=== PATIENT | female | born 1975 ===

== ENCOUNTER 2020-08-12 09:19 | Outpatient (REF) | payer OTHER, SELFPAY | END 2020-08-12 09:20 | disposition home or self-care (01) | LOC: HO.LAB 09:19 | PROVIDERS: Visit Provider Internal Medicine | DX: Z20.828 Contact with and (suspected) exposure to other viral communicable diseases (principal) | CPT/HCPCS: C9803; U0003 ==

== ENCOUNTER 2020-08-28 11:50 | Outpatient (REF) | payer OTHER, SELFPAY | END 2020-08-28 11:51 | disposition home or self-care (01) | LOC: HO.LAB 11:50 | PROVIDERS: PCP Internal Medicine; Visit Provider Internal Medicine | DX: Z20.828 Contact with and (suspected) exposure to other viral communicable diseases (principal) | CPT/HCPCS: C9803; U0003 ==

== ENCOUNTER 2020-09-10 10:37 | Outpatient (REF) | payer OTHER, SELFPAY | END 2020-09-10 10:38 | disposition home or self-care (01) | LOC: HO.LAB 10:37 | PROVIDERS: Visit Provider Internal Medicine | DX: Z20.828 Contact with and (suspected) exposure to other viral communicable diseases (principal) | CPT/HCPCS: 36415; C9803; U0003 ==

== ENCOUNTER 2020-12-25 14:57 | Outpatient (REF) | payer OTHER, SELFPAY ==
[2020-12-25 15:10] LABS: COVID-19 Test Positive (Negative); IDNOW Serial# 55D5AD1C
== END 2020-12-25 14:58 | disposition home or self-care (01) ==
LOC: HO.LAB 14:57
PROVIDERS: Visit Provider Internal Medicine
DX: Z20.822 Contact with and (suspected) exposure to COVID-19 (principal)
CPT/HCPCS: 36415; 87635; C9803

== ENCOUNTER 2021-01-07 11:43 | Outpatient (REF) | payer OTHER, SELFPAY ==
[2021-01-07 12:18] LABS: COVID-19 Test Negative (Negative)
== END 2021-01-07 11:44 | disposition home or self-care (01) ==
LOC: HO.LAB 11:43
PROVIDERS: Visit Provider Internal Medicine
DX: Z20.822 Contact with and (suspected) exposure to COVID-19 (principal)
CPT/HCPCS: 36415; 87635; C9803

== ENCOUNTER 2021-01-17 15:12 | Outpatient (REF) | payer OTHER, SELFPAY | END 2021-01-17 15:13 | disposition home or self-care (01) | LOC: HO.LAB 15:12 | PROVIDERS: Visit Provider Internal Medicine | DX: Z20.822 Contact with and (suspected) exposure to COVID-19 (principal) | CPT/HCPCS: C9803; U0003; U0005 ==

== ENCOUNTER 2021-11-01 08:32 | Outpatient (REF) | payer OTHER, SELFPAY ==
[2021-11-01 11:08] LABS: MANUAL DIFF FLAG NO
[2021-11-01 11:12] LABS: Basophils Percent Auto 0.7 % (0-2); Eosinophils Absolute Auto 0.2 X10*3/uL (0.0-0.4); Hematocrit 43.9 % (37.0-47.0); Imm Gran Abs Auto 0.01 X10*3/uL (0.00-0.03); Imm Gran Pct Auto 0.2 % (0.0-0.4); Lymphocytes Absolute Auto 1.8 X10*3/uL (1.2-4.9); Lymphocytes Percent Auto 41.6 % (20-40); Mean Corpuscular HGB Conc 31.9 g/dl (31.0-35.0); Mean Corpuscular Hemoglobin 28.3 pg (27.0-33.0); Mean Corpuscular Volume 88.9 fL (80.0-98.0); Mean Platelet Volume 12.7 fL (9.4-12.3); Monocytes Absolute Auto 0.6 X10*3/uL (0.1-1.2); Neutrophils Absolute Auto 1.7 x10*3/uL (2.0-8.3); Neutrophils Percent Auto 40.5 % (45-73); Platelet Count 230 X10*3/uL (160-400); Red Blood Count 4.94 X10*6/uL (4.20-5.50); Red Cell Distribution Width 12.7 % (11.0-16.0); White Blood Count 4.2 X10*3/uL (4.8-10.8)
[2021-11-01 11:36] LABS: Alanine Aminotransferase 143 U/L (0-31); Alkaline Phosphatase 59 U/L (39-117); Anion Gap 13 (12-20); Aspartate Amino Transferase 96 U/L (5-31); Bilirubin Total 0.7 mg/dL (0.0-1.0); Blood Urea Nitrogen 13 mg/dL (9-16); Calcium 9.3 mg/dL (8.4-10.2); Carbon Dioxide 24 mmol/L (22-29); Chloride 106 mmol/L (96-108); Cholesterol 159 mg/dL; Estimated Glomerular Filt Rate > 60; Glucose Fasting 106 mg/dL (60-99); HDL Cholesterol 47 mg/dL; LDL Cholesterol Calculated 96 mg/dl; Potassium 4.8 mmol/L (3.3-5.1); Sodium 138 mmol/L (135-145); Total Protein 7.4 g/dL (6.5-8.0); Triglycerides 83 mg/dL
[2021-11-01 11:53] LABS: TSH reflex Free T4 1.15 uIU/mL (0.32-4.0)
[2021-11-03 03:57] LABS: Vitamin B12 963 pg/mL (200-900)
[2021-11-05 12:06] LABS: Vitamin D 25-OH, D2 <4 ng/mL; Vitamin D 25-OH, D3 10 ng/mL; Vitamin D 25-OH, Total 10 ng/mL (30-100)
== END 2021-11-01 08:33 | disposition home or self-care (01) ==
LOC: HO.HMGCLDS 08:32
PROVIDERS: PCP Internal Medicine; Visit Provider Internal Medicine
DX: Z00.01 Encounter for general adult medical examination with abnormal findings (principal); E66.09 Other obesity due to excess calories; F10.20 Alcohol dependence, uncomplicated; F43.9 Reaction to severe stress, unspecified; G89.29 Other chronic pain; M21.612 Bunion of left foot; M79.672 Pain in left foot
CPT/HCPCS: 36415; 80053; 80061; 82306; 82607; 84443; 85025

== ENCOUNTER 2021-12-29 15:01 | Outpatient (REF) | payer OTHER, SELFPAY ==
--- NOTE | ~2021-12-29 | MM_ITS ---
EXAMINATION: MM SCREENING DIGITAL BREAST TOMOSYNTHESIS, BILATERAL CLINICAL INFORMATION: Screening. Asymptomatic. The lifetime risk of breast cancer based on the Tyrer-Cuzick Model is 6%. COMPARISON: Mammography: 11/07/2019, 09/13/2018, 05/18/2016 TECHNIQUE: Digital breast tomosynthesis is performed in both the craniocaudal and mediolateral oblique views along with computer-aided detection (CAD). Synthesized 2D images are generated from the tomosynthesis. FINDINGS: There are scattered areas of fibroglandular density (ACR BI-RADS breast composition Category b). There are no significant masses, abnormal calcifications, or other abnormalities. Parenchymal pattern is similar to prior studies. There is no developing density or architectural abnormality. The axilla and skin contours are unremarkable. No significant changes. MM/MM tomosynthesis screening BI IMPRESSION: No mammographic evidence of malignancy. ASSESSMENT: BI-RADS 1: Negative RECOMMENDATION: Routine annual mammography screening. This patient's information was entered into a reminder system with a target due date for their next mammogram.
== END 2021-12-29 15:02 | disposition home or self-care (01) ==
LOC: HO.MAMMO 15:01
PROVIDERS: Visit Provider Internal Medicine
DX: Z12.31 Encounter for screening mammogram for malignant neoplasm of breast (principal)
CPT/HCPCS: 77063; 77067

== ENCOUNTER 2022-04-07 14:06 | Outpatient (REF) | payer OTHER, SELFPAY ==
--- NOTE | ~2022-04-07 | XR_ITS ---
EXAMINATION: XR SHOULDER, RIGHT CLINICAL INFORMATION: R29.898 - Other symptoms and signs involving the musculoskeletal system COMPARISON: None TECHNIQUE: Three views of the right shoulder. FINDINGS: The bones and soft tissues are normal. No fracture. Glenohumeral and acromioclavicular alignment is anatomic with normal joint space. No abnormal soft tissue calcifications. XR/XR shoulder RT min 2V IMPRESSION: Normal right shoulder.
--- NOTE | ~2022-04-07 | XR_ITS ---
EXAMINATION: XR CERVICAL SPINE CLINICAL INFORMATION: Other symptoms and signs involving the musculoskeletal system, R29.898. COMPARISON: None TECHNIQUE: 3 views of the cervical spine were obtained. FINDINGS: Degenerative changes are present in the cervical spine with disc space narrowing at C4-C5, C5-C6, and C6-C7. Some minimal endplate changes are present with osteophytes. No prevertebral soft tissue swelling or subluxations are seen. XR/XR cervical spine 3V IMPRESSION: Degenerative changes C4 through C7.
[2022-04-07 16:53] LABS: Alanine Aminotransferase 33 U/L (0-31); Albumin Level 4.5 g/dL (3.5-5.0); Alkaline Phosphatase 53 U/L (39-117); Aspartate Amino Transferase 28 U/L (5-31); Bilirubin Direct 0.2 mg/dL (0.0-0.5); Bilirubin Total 0.5 mg/dL (0.0-1.0); Estimated Average Glucose 120 mg/dL; Hemoglobin A1c % 5.8 %; Total Protein 7.8 g/dL (6.5-8.0)
== END 2022-04-07 14:07 | disposition home or self-care (01) ==
LOC: HO.HMGCX 14:06
PROVIDERS: PCP Internal Medicine; Visit Provider Internal Medicine
DX: F10.20 Alcohol dependence, uncomplicated (principal); R73.01 Impaired fasting glucose; R79.89 Other specified abnormal findings of blood chemistry; R29.898 Other symptoms and signs involving the musculoskeletal system
CPT/HCPCS: 36415; 72040; 73030; 80076; 83036

== ENCOUNTER 2022-05-20 13:20 | Outpatient (REF) | payer OTHER, SELFPAY ==
--- NOTE | ~2022-05-20 | MR_ITS ---
EXAMINATION: MR BRAIN WITHOUT AND WITH CONTRAST CLINICAL INFORMATION: 46-year-old with right arm weakness. COMPARISON: None TECHNIQUE: Multiplanar, multisequence MRI of the brain was obtained before and after the intravenous administration of 8.5 mL Gadavist. FINDINGS: Brain Volume: Within normal limits within the limitations of qualitative assessment. Structural: No malformations. Brain and Meninges: DWI sequence demonstrates no restricted diffusion to suggest acute or subacute cerebral ischemia. The brain is normal in morphology. A few nonspecific punctate nonenhancing T2 hyperintensities are seen in the left subcortical parietal white matter and within the anterior aspect of the left external capsule. Nonspecific nonenhancing punctate T2 hyperintensity in the anterior right external capsule as well. Remainder of the brain is normal in signal intensity. Gradient refocused imaging demonstrates no evidence for abnormal magnetic susceptibility artifact to suggest hemorrhage, hemosiderin staining or abnormal mineralization. No extra-axial fluid collections, intracranial mass lesion, extra-axial fluid collection, pathologic intracranial enhancement, space-occupying process or mass effect. Skaggs-white matter differentiation is well maintained. Ventricles and Subarachnoid Spaces: The ventricular system and subarachnoid spaces are within normal limits without hydrocephalus. Orbital Structures: The visualized orbital structures are grossly unremarkable within the limitations of the study. Vascular: Signal voids are noted in the visualized major intracranial vessels. Osseous Structures, Sinuses/Mastoids, Extracranial Soft Tissues: Unremarkable MR/MR head/brain wo/w con IMPRESSION: 1. A few tiny nonenhancing white matter T2 hyperintensities seen in the left cerebral hemispheric white matter and both external capsules as described above which are nonspecific findings. 2. No intracranial mass lesion, abnormal enhancement, space-occupying process or mass effect.
== END 2022-05-20 13:21 | disposition home or self-care (01) ==
LOC: HO.MRI 13:20
PROVIDERS: Visit Provider Psychiatry & Neurology Neurology
DX: R29.898 Other symptoms and signs involving the musculoskeletal system (principal)
CPT/HCPCS: 70553; A9585

== ENCOUNTER 2022-07-20 14:25 | Outpatient (REF) | payer OTHER, SELFPAY ==
[2022-07-21 01:59] LABS: CT PCR NOT DETECTED (Not Detect.); NG PCR NOT DETECTED (Not Detect.)
[2022-07-21 12:08] LABS: BV Int Neg Control Negative (Negative); BV Int Pos Control Positive (Positive)
[2022-07-23 14:11] LABS: HPV mRNA E6/E7 rflx Not Detected (Not Detected)
== END 2022-07-20 14:26 | disposition home or self-care (01) ==
LOC: HO.LNP 14:25
PROVIDERS: Visit Provider Advanced Practice Midwife
DX: Z01.419 Encounter for gynecological examination (general) (routine) without abnormal findings (principal); Z11.51 Encounter for screening for human papillomavirus (HPV)
CPT/HCPCS: 87480; 87491; 87510; 87591; 87624; 87660; 88142

== ENCOUNTER 2022-09-14 12:50 | Outpatient (REF) | payer OTHER, SELFPAY ==
[2022-09-14 14:57] LABS: Syphilis Screen Nonreactive (Nonreactive)
[2022-09-16 08:26] LABS: HBsAGNum1 0.36 S/CO (0.00-0.99); HIV AB/AG Nonreactive (Nonreactive); HIV Num 1 0.08 S/CO (0.00-0.99); Hepatitis B Surface Antigen Negative (Negative); ~HepC Num1 13.91 S/CO (0.00-0.79); ~Hepatitis C Antibody Reactive (Nonreactive)
== END 2022-09-14 12:51 | disposition home or self-care (01) ==
LOC: HO.LAB 12:50
PROVIDERS: PCP Internal Medicine; Visit Provider Advanced Practice Midwife
DX: Z11.3 Encounter for screening for infections with a predominantly sexual mode of transmission (principal); Z11.4 Encounter for screening for human immunodeficiency virus [HIV]
CPT/HCPCS: 36415; 86780; 86803; 87340; 87389

== ENCOUNTER 2022-10-23 10:52 | Outpatient (REF) | payer OTHER, SELFPAY ==
[2022-10-23 14:15] LABS: MANUAL DIFF FLAG NO
[2022-10-23 14:21] LABS: Basophils Absolute Auto 0.1 X10*3/uL (0.0-0.2); Basophils Percent Auto 0.8 % (0-2); Eosinophils Absolute Auto 0.3 X10*3/uL (0.0-0.4); Eosinophils Percent Auto 3.4 % (0-4); Hematocrit 42.1 % (37.0-47.0); Hemoglobin 13.5 g/dl (12.0-16.0); Imm Gran Abs Auto 0.02 X10*3/uL (0.00-0.03); Imm Gran Pct Auto 0.2 % (0.0-0.4); Lymphocytes Absolute Auto 2.6 X10*3/uL (1.2-4.9); Lymphocytes Percent Auto 31.2 % (20-40); Mean Corpuscular HGB Conc 32.1 g/dl (31.0-35.0); Mean Corpuscular Hemoglobin 28.6 pg (27.0-33.0); Mean Corpuscular Volume 89.2 fL (80.0-98.0); Mean Platelet Volume 12.2 fL (9.4-12.3); Monocytes Absolute Auto 0.6 X10*3/uL (0.1-1.2); Monocytes Percent Auto 6.7 % (2-11); Neutrophils Absolute Auto 4.8 x10*3/uL (2.0-8.3); Neutrophils Percent Auto 57.7 % (45-73); Platelet Count 306 X10*3/uL (160-400); Red Blood Count 4.72 X10*6/uL (4.20-5.50); White Blood Count 8.2 X10*3/uL (4.8-10.8)
[2022-10-23 14:32] LABS: Estimated Average Glucose 120 mg/dL; Hemoglobin A1c % 5.8 %
[2022-10-23 14:50] LABS: Alanine Aminotransferase 22 U/L (0-31); Albumin Level 4.2 g/dL (3.5-5.0); Alkaline Phosphatase 60 U/L (39-117); Anion Gap 13 (12-20); Aspartate Amino Transferase 19 U/L (5-31); Bilirubin Total 0.4 mg/dL (0.0-1.0); Blood Urea Nitrogen 16 mg/dL (9-16); Calcium 9.4 mg/dL (8.4-10.2); Carbon Dioxide 24 mmol/L (22-29); Chloride 108 mmol/L (96-108); Cholesterol 194 mg/dL; Estimated Glomerular Filt Rate > 60; Glucose Fasting 104 mg/dL (60-99); HDL Cholesterol 53 mg/dL; LDL Cholesterol Calculated 122 mg/dl; Potassium 4.9 mmol/L (3.3-5.1); Sodium 140 mmol/L (135-145); Total Protein 7.4 g/dL (6.5-8.0); Triglycerides 99 mg/dL
[2022-10-25 07:59] LABS: HCV Log PCR <1.18 NOT DETECTED Log IU/mL (NOT DETECTED); HepC Viral Load <15 NOT DETECTED IU/mL (NOT DETECTED)
== END 2022-10-23 10:53 | disposition home or self-care (01) ==
LOC: HO.HMGCLDS 10:52
PROVIDERS: PCP Internal Medicine; Visit Provider Internal Medicine
DX: Z00.01 Encounter for general adult medical examination with abnormal findings (principal); B19.20 Unspecified viral hepatitis C without hepatic coma; E66.09 Other obesity due to excess calories; R73.01 Impaired fasting glucose; R79.89 Other specified abnormal findings of blood chemistry
CPT/HCPCS: 36415; 80053; 80061; 83036; 84443; 85025; 87522

== ENCOUNTER 2022-11-27 09:12 | Outpatient (REF) | payer OTHER, SELFPAY ==
--- NOTE | ~2022-11-27 | XR_ITS ---
EXAMINATION: XR SHOULDER, RIGHT CLINICAL INFORMATION: Pain in right shoulder. COMPARISON: None available. TECHNIQUE: AP external rotation, Grashey, scapular Y, and axillary views of the right shoulder. FINDINGS: There is loss of glenohumeral and AC joint space. No visible acute fracture, dislocation or subluxation seen. No bony erosive changes. The soft tissues are normal. XR/XR shoulder RT min 2V IMPRESSION: Mild degenerative changes right shoulder joint. No visible acute fracture or dislocation seen.
== END 2022-11-27 09:13 | disposition home or self-care (01) ==
LOC: HO.HMGCX 09:12
PROVIDERS: PCP Internal Medicine; Visit Provider Internal Medicine
DX: M25.511 Pain in right shoulder (principal)
CPT/HCPCS: 73030

== ENCOUNTER → 2022-12-29 10:47 | Outpatient (BNVA) | payer OTHER, SELFPAY | PROVIDERS: PCP Internal Medicine; Visit Provider Physician Assistant | DX: R29.898 Other symptoms and signs involving the musculoskeletal system (principal) | CPT/HCPCS: 99202 ==

== ENCOUNTER 2023-02-09 09:23 | Outpatient (REF) | payer OTHER, SELFPAY ==
--- NOTE | ~2023-02-09 | MM_ITS ---
EXAMINATION: MM SCREENING DIGITAL BREAST TOMOSYNTHESIS, BILATERAL CLINICAL INFORMATION: Screening. Asymptomatic. The lifetime risk of breast cancer based on the Tyrer-Cuzick Model is 8%. COMPARISON: Mammography: 12/29/2021, 11/07/2019, 09/13/2018 TECHNIQUE: Digital breast tomosynthesis is performed in both the craniocaudal and mediolateral oblique views along with computer-aided detection (CAD). Synthesized 2D images are generated from the tomosynthesis. FINDINGS: There are scattered areas of fibroglandular density (ACR BI-RADS breast composition Category b). There are no significant masses, abnormal calcifications, or other abnormalities. Parenchymal pattern is similar to prior studies. There is no developing density or architectural abnormality. There are incidental tightly grouped dermal calcifications again noted posterior 7:00 left breast. The axilla and skin contours are unremarkable. No significant changes. MM/MM tomosynthesis screening BI IMPRESSION: No mammographic evidence of malignancy. ASSESSMENT: BI-RADS 2: Benign RECOMMENDATION: Routine annual mammography screening. This patient's information was entered into a reminder system with a target due date for their next mammogram.
== END 2023-02-09 09:24 | disposition home or self-care (01) ==
LOC: HO.MAMMO 09:23
PROVIDERS: Visit Provider Internal Medicine
DX: Z12.31 Encounter for screening mammogram for malignant neoplasm of breast (principal)
CPT/HCPCS: 77063; 77067

== ENCOUNTER 2023-03-10 19:04 | Emergency (ER) | payer OTHER, SELFPAY ==
[2023-03-10 19:15] VITALS: BP 119/65; PULSE 77; RESP 18; TEMP 36.8; O2SAT 100; BMI 29.8
--- NOTE | 2023-03-10 19:17 | ED_ITS ---
HPI - General Adult General Chief complaint: Extremity Injury, Lower Stated complaint: left ankle inj Time Seen by Provider: 03/10/23 20:23 Source: patient, RN notes reviewed and old records reviewed Mode of arrival: ambulatory Limitations: no limitations History of Present Illness HPI narrative: 47-year-old female presents for evaluation of left ankle pain and swelling. Patient reports that she slipped and fell off of a step stool She will in awkwardly on her left ankle She describes an inversion injury She has moderate pain to the outside of the left ankle Denies any other complaints or concerns Related Data Home Medications Medication Instructions Recorded Confirmed No Known Home Meds 12/23/22 01/21/23 Allergies Allergy/AdvReac Type Severity Reaction Status Date / Time No Known Allergies Allergy Verified 01/21/23 09:51 Review of Systems Musculoskeletal: Musculoskeletal: Reports arthralgias, Reports joint swelling and Reports limited range of motion PMFSH Past Medical History Surgical History History of bunionectomy Family History Family History Mother Ovarian cancer Other Mental health disorder Social History Social History Housing: Apartment Patient Tobacco Use Status: Current someday Tobacco user Tobacco use type: Cigarette Cigarettes Per Day: 2 Years Smoked: 6 years e-Cigarette/Vaping Use: Never Used service: No Current occupational status: employed Current occupation: right handed Cognitive needs: No Hearing needs: No Vision needs: Yes Physical Exam ED Vital Signs: Vital Signs - 24 hr 03/10/23 19:15 Temperature 98.3 F Pulse Rate 77 Respiratory Rate 18 Blood Pressure 119/65 Pulse Oximetry 100 Oxygen Delivery Method Room Air BMI result Body Mass Index 29.8 Const General: healthy appearing, comfortable, no acute distress, alert and awake Nutritional Appearance: well nourished Orientation/consciousness: patient oriented x3 HENMT Head: Yes normocephalic and Yes atraumatic Eyes Eyelids: Yes eyelids normal Conjunctivae: conjunctivae normal Sclerae: sclerae normal Corneas: corneas normal Pupils: Equal, round and reactive pupils present EOM: EOMs intact bilaterally Neck Neck: Yes full ROM Resp Effort & Inspection: normal respiratory effort, able to speak in complete sentences and not labored Neuro General: patient oriented x3 Cranial nerves: Yes Equal, round and reactive pupils present and Yes Bilaterally intact EOM present Cognition (Neuro): normal cognition Extrem Other: Patient has marked left lateral ankle edema over the lateral malleolus and anterior talofibular ligament Course Course Course Narrative: RME- 47-year-old female presents for evaluation of left ankle pain. She reports that she was standing on a stool and fell off 1 step twisting her left ankle. She has a small scrape to her right manley as well but no joint pain to the right ankle or knee. X-ray of the left ankle ordered Medical Decision Making Medical Decision Making MDM Narrative: Patient describes an inversion injury resulting in left ankle pain. X-ray negative for fracture. She will be treated for ankle sprain with crutches and Aircast. Differential Diagnosis Ankle sprain Contusion Fracture Dislocation Independent Interpretation I performed an independent interpretation of an: Plain X-Ray (No obvious fracture of the left ankle) Radiology Impression Discussion of test interpretation with radiology: I have reviewed the ra diologist's reading. (No acute ankle fracture. Soft tissue swelling over the left lateral ankle) Discharge Plan Discharge Clinical Impression: Left ankle sprain Patient Disposition: Home, Self-Care Instructions: Ankle Sprain (ED) Additional Instructions: Your x-ray was negative for fracture. You did have a small joint effusion This is likely from the ankle sprain. Ice the area every 4 hours for 15 minutes Elevate her leg above her heart while resting Use ibuprofen as needed for pain Prescriptions: No Action No Known Home Meds Stand Alone Forms: Work/School Release
== END 2023-03-10 21:10 | disposition home or self-care (01) ==
PROVIDERS: Emergency Provider Emergency Medicine Emergency Medical Services; PCP Internal Medicine
DX: S93.402A Sprain of unspecified ligament of left ankle, initial encounter (principal); W17.89XA Other fall from one level to another, initial encounter; R60.0 Localized edema; F17.210 Nicotine dependence, cigarettes, uncomplicated; Y93.9 Activity, unspecified; Y92.9 Unspecified place or not applicable; Y99.9 Unspecified external cause status
CPT/HCPCS: 73610; 99282; 99283

== ENCOUNTER 2023-03-24 10:10 | Outpatient (AMB) | payer OTHER, SELFPAY ==
[2023-03-24 10:14] VITALS: BP 108/68; PULSE 93; O2SAT 98; BMI 29.6
--- NOTE | 2023-03-24 10:14 | MHC.PC.OV ---
Vital Signs 03/24/23 10:14 Height 5 ft 7 in Weight 189 lb 4 oz BMI 29.6 BP 108/68 Blood Pressure Location Rt brachial Position Sitting Pulse 93 Pulse Source Pulse Oximeter Pulse Oximetry (%) 98 Oxygen Delivery Method Room Air Intake Visit Reasons: LE swelling due to injuries Allergies No Known Allergies Allergy (Verified 03/24/23 10:16) Medication List - Last Reconciled 03/24/23 by Andrew Mcguire MD No Known Home Meds Tobacco use date assessed: 03/24/23 Dental Screening Dental Screen Date: 03/24/23 Did you have a dental visit in the last 12 months?: No Did you have a dental problem in the last 6 months where you did not have access to dental care?: No Was dental information given to patient?: No HPI LE swelling due to injuries HPI Details Patient is 47-year-old female who has encountered injury to her left ankle few days ago and she was evaluated for that in emergency room she is currently wearing a brace and has appointment with [facility] next week Last week she was climbing the chair to put her a condition in and she fell again this time injuring her right ankle and right lower leg Patient is also have chronically 1+ edema over ankles she is under care over vascular specialist for that and has appointment coming up next month She continued to have weakness in her right arm I have given her number for Dr. Castaneda neurology so she can call and book appointment for evaluation She has already seen orthopedic for this problem and they have the impression that it is neurological problem. I have sent Lasix 20 mg for the edema while she wait to see the vascular specialist X-ray of her right ankle and lower leg ordered She is also requesting a note for work to reduce the number of hours to 5 Letter provided currently patient is working 8 hours a day She will have to return for the cleared is to go back to regular hours once she is better. [facility] Surgical History History of bunionectomy Family History Mother Ovarian cancer Other Mental health disorder Social History Housing: Apartment Patient Tobacco Use Status: Current someday Tobacco user Tobacco use type: Cigarette Cigarettes Per Day: 2 Years Smoked: 6 years e-Cigarette/Vaping Use: Never Used service: No Current occupational status: employed Current occupation: right handed Cognitive needs: No Hearing needs: No Vision needs: Yes Female Reproductive History Menstrual Age of Menarche: 14 Questionnaire Thrive Questionnaire Date Thrive assessed: 10/21/22 AUDIT C Alcohol Use Questionnaire (AUDIT-C) 1. How often do you have a drink containing alcohol?: 2-3 times a week 2. How many drinks containing alcohol do you have on a typical day when you are drinking?: 1 or 2 3. How often do you have six or more drinks on one occasion?: Never Total Score: 3 Score Reviewed/Action Taken: Yes STACI-7 AMB Questionnaire STACI-7 Date STACI - 7 assessed: 10/21/22 Source: Developed by Drs. Bakari Bhakta, Alley Adair, Issac Peoples and colleagues, with an educational lewis from [employer]. Review of Systems Const Denies chills and Denies fever(s) ENT Denies epistaxis and Denies nasal discharge Card Denies chest pain Resp Denies chest congestion, Denies cough and Denies hemoptysis GI Denies diarrhea and Denies nausea Skin/Breast Denies rash Neuro Reports no additional complaints Psych Reports no additional complaints Endo Reports no additional complaints Physical exam (Primary Care) Vital Signs: Last Vital Signs Pulse 93 03/24/23 10:14 BP 108/68 03/24/23 10:14 Pulse Ox 98 03/24/23 10:14 Oxygen Delivery Method Room Air 03/24/23 10:14 BMI result Body Mass Index 29.6 Tobacco/Smoking Status: Tobacco use Status Tobacco use date assessed 03/24/23 03/24/23 10:17 Patient Tobacco Use Status Current someday Tobacco 03/24/23 10:17 Tobacco use type Cigarette 03/24/23 10:17 e-Cigarette/Vaping Use Never Used 03/24/23 10:17 Thrive Assessment: Date of Thrive Assessment Date Thrive assessed 10/21/22 03/24/23 10:17 Const General: cooperative, comfortable and no acute distress Orientation/consciousness: patient oriented x3 HENMT Head: Yes normocephalic Eyes General: appearance normal, both eyes and all related structures Neck Neck: Yes supple Resp Effort & Inspection: normal respiratory effort, no cough and no stridor Cardio Rhythm: regular rhythm Heart sounds: S1 normal heart sound present and S2 normal heart sound present Skin General skin exam: turgor normal Neuro General: patient oriented x3, tone normal and moves all extremities Extrem Other: 1+ pitting edema both ankle, right ankle tender medially with pressure with limited range of motion, right lower leg tender to pressure without any skin changes. Left ankle in brace. Right lower extremity: no edema Left lower extremity: no edema Assessment and Plan Assessment & Plan (1) Fall: Code(s): W19.XXXA - Unspecified fall, initial encounter (2) Leg injury: Code(s): S89.90XA - Unspecified injury of unspecified lower leg, initial encounter (3) Ankle sprain: Code(s): S93.409A - Sprain of unspecified ligament of unspecified ankle, initial encounter (4) Swelling of right lower extremity: Code(s): M79.89 - Other specified soft tissue disorders (5) Right arm weakness: Code(s): R29.898 - Other symptoms and signs involving the musculoskeletal system Plan Patient is 47-year-old female who has encountered injury to her left ankle few days ago and she was evaluated for that in emergency room she is currently wearing a brace and has appointment with [facility] next week Last week she was climbing the chair to put her a condition in and she fell again this time injuring her right ankle and right lower leg Patient is also have chronically 1+ edema over ankles she is under care over vascular specialist for that and has appointment coming up next month She continued to have weakness in her right arm I have given her number for Dr. Castaneda neurology so she can call and book appointment for evaluation She has already seen orthopedic for this problem and they have the impression that it is neurological problem. I have sent Lasix 20 mg for the edema while she wait to see the vascular specialist X-ray of her right ankle and lower leg ordered She is also requesting a note for work to reduce the number of hours to 5 Letter provided currently patient is working 8 hours a day She will have to return for the cleared is to go back to regular hours once she is better. Orders: Orders XR tibia fibula RT 2V Today S89.90XA - Unspecified injury of unspecified lower leg, initial encounter XR ankle RT 2V Today S89.90XA - Unspecified injury of unspecified lower leg, initial encounter, S93.409A - Sprain of unspecified ligament of unspecified ankle, initial encounter Medications: New furosemide (Lasix) 20 mg PO DAILY 30 tabs 0RF Coding Level of Care Code Est Pt Level 4 (63958) Diagnoses Fall W19.XXXA Leg injury S89.90XA Ankle sprain S93.409A Swelling of right lower extremity M79.89 Right arm weakness R29.898
== END 2023-03-24 12:47 | disposition home or self-care (01) ==
PROVIDERS: PCP Internal Medicine; Visit Provider Internal Medicine
DX: S89.91XA Unspecified injury of right lower leg, initial encounter (principal); S93.401A Sprain of unspecified ligament of right ankle, initial encounter; W19.XXXA Unspecified fall, initial encounter; M79.89 Other specified soft tissue disorders; R29.898 Other symptoms and signs involving the musculoskeletal system
CPT/HCPCS: 99214

== ENCOUNTER 2023-03-24 10:33 | Outpatient (REF) | payer OTHER, SELFPAY ==
--- NOTE | ~2023-03-24 | XR_ITS ---
EXAMINATION: RIGHT TIB-FIB, RIGHT ANKLE CLINICAL INFORMATION: Injury COMPARISON: None TECHNIQUE: 2 views tib-fib, 3 views right ankle FINDINGS: The tibia and fibula appear normal. There is marked soft tissue swelling at the ankle most marked medially. The ankle mortise appears stable. No ankle effusion is seen. No fractures or dislocations. Incidental note made of a small plantar calcaneal spur. XR/XR ankle RT 2V IMPRESSION: Soft tissue swelling but no evidence of an acute osseous injury.
--- NOTE | ~2023-03-24 | XR_ITS ---
EXAMINATION: RIGHT TIB-FIB, RIGHT ANKLE CLINICAL INFORMATION: Injury COMPARISON: None TECHNIQUE: 2 views tib-fib, 3 views right ankle FINDINGS: The tibia and fibula appear normal. There is marked soft tissue swelling at the ankle most marked medially. The ankle mortise appears stable. No ankle effusion is seen. No fractures or dislocations. Incidental note made of a small plantar calcaneal spur. XR/XR tibia fibula RT 2V IMPRESSION: Soft tissue swelling but no evidence of an acute osseous injury.
== END 2023-03-24 10:34 | disposition home or self-care (01) ==
LOC: HO.HMGCX 10:33
PROVIDERS: PCP Internal Medicine; Visit Provider Internal Medicine
DX: S89.91XA Unspecified injury of right lower leg, initial encounter (principal); S93.401A Sprain of unspecified ligament of right ankle, initial encounter; X58.XXXA Exposure to other specified factors, initial encounter; Y93.9 Activity, unspecified; Y92.9 Unspecified place or not applicable; Y99.9 Unspecified external cause status
CPT/HCPCS: 73590; 73600

== ENCOUNTER 2023-03-29 14:36 | Outpatient (AMB) | payer OTHER, SELFPAY ==
[2023-03-29 15:04] VITALS: PULSE 76; O2SAT 99; BMI 29.6
--- NOTE | 2023-03-29 15:04 | A.OFFVIS_ITS ---
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 Pt states she has weakness in right arm. It's been like this for awhile and she has trouble doing her hair and other tasks. [employer] Set Up Mechanic Required: No Allergies No Known Allergies Allergy (Verified 03/29/23 15:09) Medication List - Last Reconciled 03/29/23 by JOSE Brady furosemide (Lasix) 20 mg PO DAILY multivitamin (One-A-Day Essential tablet) 1 tab PO DAILY HPI HPI Comments History of Present Illness Details Right-handed 47-yr-old female presents for neurological evaluation of RUE weakness. Pt reports about a year ago she developed RUE weakness. She denies any preceding injuries, infections. The weakness is slowly progressing. She needs to cee left arm to puch up her right arm. She reports her arm feels heavy. She has tremor upon raising her right arm and her right hand postures. She has some shoulder p ain- x-ray was NL. Patient endorses: in the apst talked in her sleep, gait difficulties- had bunion surgery in Sep 2022, has been having RLE swelling- will see vascular, recent fall- twisted both of her ankles. And patient denies: dysphagia, numbness, tingling, cramps, hyposmia, neck pain, orthostatic lightheadedness, headaches, skin color changes. Any history of concussion or head injury? None Any history of significant musculoskeletal disorders? None Any history of cardiovascular disorders? No HTN Any history of mood disorders? Anxiety- situational Any history of coagulopathy disorders? None Any history of metabolic disorders? pre-diabtic Any history of neurological disorders? About 5 yrs ago had ? left lower facial spasm- resolved w/ a course of steroids. Exposures- Denies any h/o neuroleptic exposure. Any family history of a similar disorder? None Per chart review- RUE EMG/NCS- NL RPR, TSH, HgA1C, B-12- NL Vit D- low 11/27/22, XR/XR shoulder RT min 2V IMPRESSION: Mild degenerative changes right shoulder joint. No visible acute fracture or dislocation seen. 05/20/22, MR/MR head/brain wo/w con IMPRESSION: 1. A few tiny nonenhancing white matter T2 hyperintensities seen in the left cerebral hemispheric white matter and both external capsules as described above which are nonspecific findings. 2. No intracranial mass lesion, abnormal enhancement, space-occupying process or mass effect.? 04/07/22, XR/XR cervical spine 3V IMPRESSION: Degenerative changes C4 through C7. [facility] Surgical History History of bunionectomy Family History (Updated 03/29/23 @ 15:10 by Betty Couch CMA) Mother Ovarian cancer Sister Acute kidney failure Other Mental health disorder Social History (Updated 03/29/23 @ 15:11 by Betty Couch CMA) Housing: Apartment Alcohol intake: current Alcohol intake frequency: a few times a month Patient Tobacco Use Status: Current someday Tobacco user Tobacco use type: Cigarette Cigarettes Per Day: 2 Years Smoked: 6 years e-Cigarette/Vaping Use: Never Used Substance Use Type: Marijuana service: No Current occupational status: employed Current occupation: right handed Cognitive needs: No Hearing needs: No Vision needs: Yes Female Reproductive History Menstrual Age of Menarche: 14 Review of Systems Const Details: See scanned ROS form Physical Exam Vital Signs: Last Vital Signs Pulse 76 03/29/23 15:04 Pulse Ox 99 03/29/23 15:04 Oxygen Delivery Method Room Air 03/29/23 15:04 BMI result Body Mass Index 29.6 Const General: cooperative and no acute distress Orientation/consciousness: patient oriented x3 HEENT Head: Yes normocephalic Resp Effort & Inspection: normal respiratory effort and able to speak in complete sentences Back/Spine/Pelvis Other: Bilateral posterior cervical tightness. Cervical ROM: limited Left Spurling: normal Right Spurling: normal. Denies right shoulder pain Neuro Other: CN II-XI intact MS- 5/5 in LUE, BLE MS RUE- Pt unable to elevate right shoulder against gravity. Able to lift RUE- slowly. Hand grasp ok. RUE rests with hand postured in slight flexion Mild chin tremor on cheek puff test RUE wingbeat tremor RUE tone. Decreased right sided FFM, RUE HANNA, and foot taps Stand easily, no right arm swing w/ hand postured, decreased heel toe step on right. RLE swelling. General: patient oriented x3 and deep tendon reflexes 2+ bilaterally Gait exam (Neuro): Normal gait present Psych Appearance: grossly normal Mental Status: mental status grossly normal Speech and movement: Normal speech and movement present Affect: normal affect Attitude: cooperative Thought process: Normal thought process present Thought content: Normal thought content present Insight: Good insight present (Psych) Assessment & Plan Assessment & Plan (1) Tremor: Code(s): R25.1 - Tremor, unspecified (2) Right arm weakness: Code(s): R29.898 - Other symptoms and signs involving the musculoskeletal system (3) Rigidity: Code(s): R29.898 - Other symptoms and signs involving the musculoskeletal system Plan Pt has s/s c/w movement disorder however discussed w/ pt that further tesing would be required before we can determine exact etiology/dx- Will trial pt on CD-LD and monitor her response. Pt also advised to undergo DaTscan to assess for any central dopaminergic process. Pt seen in c/w DR Castaneda. f/u in 2 months or sooner prn. Orders: Orders DaTscan Today R25.1 - Tremor, unspecified, R29.898 - Other symptoms and signs involving the musculoskeletal system Medications: New carbidopa-levodopa 25-100 mg 0.5 tab bid x's 1 week, then 1 tab bid orally 2 times a day; take w/ a cracker 30 minutes before breakfast and dinner, 30 days 60 tabs 3RF Coding Level of Care Code New Pt Level 4 (51716) Diagnoses Tremor R25.1 Right arm weakness R29.898 Rigidity R29.898
== END 2023-03-29 16:12 | disposition home or self-care (01) ==
PROVIDERS: Visit Provider Nurse Practitioner Family
DX: R25.1 Tremor, unspecified (principal); R29.898 Other symptoms and signs involving the musculoskeletal system
CPT/HCPCS: 99204

== ENCOUNTER → 2023-03-29 14:36 | Outpatient (BNVA) | payer OTHER, SELFPAY | PROVIDERS: Visit Provider Nurse Practitioner Family | DX: R25.1 Tremor, unspecified (principal); R29.898 Other symptoms and signs involving the musculoskeletal system | CPT/HCPCS: 99202 ==

== ENCOUNTER 2023-04-01 13:04 | Outpatient (AMB) | payer OTHER, SELFPAY ==
--- NOTE | 2023-04-01 13:06 | MHC.OFFVIS ---
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 Patient is not diabetic, Patient is a smoker, no hx blood clots. 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 Complaints include pain over varicosities, swelling of lower extremities, cramping, fatigue, and heaviness of the lower extremities. 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 It is noted more so in right leg. Patient denies any previous venous surgery or injections. Patient denies any history of DVT/ PE. Patient denies any history of phlebitis. Trial of compression includes - [id number] They now present for vascular evaluation regarding their varicose veins. [facility] Surgical History History of bunionectomy Family History Mother Ovarian cancer Sister Acute kidney failure Other Mental health disorder Social History Housing: Apartment Alcohol intake: current Alcohol intake frequency: a few times a month Patient Tobacco Use Status: Current someday Tobacco user Tobacco use type: Cigarette Cigarettes Per Day: 2 Years Smoked: 6 years e-Cigarette/Vaping Use: Never Used Substance Use Type: Marijuana service: No Current occupational status: employed Current occupation: right handed Cognitive needs: No Hearing needs: No Vision needs: Yes Female Reproductive History Menstrual Age of Menarche: 14 Review of Systems Const Reports as per HPI ENT Reports no additional complaints Card Denies chest pain, Denies chest pain at rest and Denies chest pain with activity Resp Denies chest congestion and Denies cough GI Reports no additional complaints Musc Details: pain over varicosities, aching of lower extremities, swelling, cramping, heaviness and tiredness, itching Denies abnormal gait Skin/Breast Reports pruritus and Denies wounds Neuro Reports no additional complaints and Denies abnormal gait Psych Denies no additional complaints Physical Exam Const General: cooperative, healthy appearing and comfortable Orientation/consciousness: oriented to person, oriented to place and oriented to time Neck Carotids: no bruits Chest Chest palpation & inspection: normal inspection of the chest and normal palpation of entire chest wall Resp Effort & Inspection: normal respiratory effort and able to speak in complete sentences Cardio Rate: regular rate Heart sounds: S1 normal heart sound present and S2 normal heart sound present Peripheral pulses: Peripheral pulses 2+ throughout GI Inspection: Yes normal to inspection Skin Other: +2 edema, right CEAP Classification C4 - skin color changes Ep - Etiology Primary As - superficial veins P - reflux General skin exam: dry skin Neuro General: oriented to person, oriented to place and oriented to time Extrem Right lower extremity: full ROM, normal capillary refill and edema Left lower extremity: full ROM, normal capillary refill and edema Psych Mental Status: mental status grossly normal Assessment & Plan Assessment & Plan (1) Varicose veins of right lower extremity with inflammation: Code(s): I83.11 - Varicose veins of right lower extremity with inflammation Plan: In short, the patient has evidence of venous insufficiency. I have discussed the pathophysiology with the patient. In addition I have provided informational material regarding venous disease to the patient. We have discussed conservative measures including compression, elevation, and exercise. I have also provided a handout regarding appropriate use of compression stockings and where to purchase good compression stockings as well. I have taken the liberty of ordering venous insufficiency testing with the patient. They will follow up with me after testing. The patient had an opportunity to ask questions regarding the treatment plan. All questions were answered. Imaging studies, laboratory studies and physical exam results were discussed and reviewed in detail. No major barriers to understanding were identified. The patient expressed understanding and agreement with the above treatment plan. The patient is aware they should contact our office by phone for worsening of the current condition or the appearance of new symptoms. Thank you for allowing me to participate in the vascular care of this patient. If you have any questions or concerns regarding the treatment for the above condition please do not hesitate to contact me. The office telephone contact is [phone]. This note is constructed using voice recognition software. While every effort has been made to ensure accuracy, scale technician errors may have been included. Thank you for allowing me to participate in the care of your patient. Yours sincerely, Atul Gomes MD, FACS, R.P.V.I. Orders: Orders US venous duplex LE BI 1 Week I83.11 - Varicose veins of right lower extremity with inflammation Coding Level of Care Code New Pt Level 4 (14753) Diagnoses Varicose veins of right lower extremity with inflammation I83.11
== END 2023-04-01 13:44 | disposition home or self-care (01) ==
PROVIDERS: Visit Provider Surgery Vascular Surgery
DX: I83.11 Varicose veins of right lower extremity with inflammation (principal)
CPT/HCPCS: 99203

== ENCOUNTER → 2023-04-01 13:04 | Outpatient (BNVA) | payer OTHER, SELFPAY | PROVIDERS: Visit Provider Surgery Vascular Surgery ==

== ENCOUNTER 2023-05-04 08:27 | Outpatient (REF) | payer OTHER, SELFPAY ==
--- NOTE | ~2023-05-04 | US_ITS ---
EXAMINATION: US LOWER EXTREMITY VENOUS (REFLUX EXAM), BILATERAL CLINICAL INDICATION: Bilateral venous insufficiency testing COMPARISON: None. TECHNIQUE: Color flow triplex imaging and compression Doppler was performed to evaluate both the deep and the superficial systems bilaterally. To evaluate the superficial system, the examination was performed in the upright position. Color-flow Doppler ultrasound and compression ultrasound were utilized. In addition, maneuvers were utilized to demonstrate reflux. FINDINGS: 1. DEEP VENOUS ULTRASOUND OF THE RIGHT LOWER EXTREMITY: Common Femoral Vein: Compressible, normal respiratory variation and augmented flow. Femoral Vein: Compressible, normal color flow and augmentation. Popliteal Vein: Compressible, normal augmentation. Deep Reflux: There is no evidence of reflux in the deep system in either the common femoral vein or the popliteal vein. There is no evidence of a James's cyst. 2. SUPERFICIAL ULTRASOUND WITH DOPPLER OF RIGHT LOWER EXTREMITY: GREAT SAPHENOUS VEIN: Saphenofemoral Junction: 0.7 cm; Reflux: 0 ms Proximal Thigh: 0.4 cm; Reflux: 0 ms Mid Thigh: 0.3 cm; Reflux: 0.2 ms Above Knee: 0.2 cm; Reflux: 0 ms At Knee: 0.3 cm; Reflux: 0 ms Below Knee: 0.2 cm; Reflux: 0 ms Mid Calf: 0.2 cm; Reflux: 0 ms Ankle: 0.2 cm; Reflux: 0 ms DUPLICATED MEDIAL GREAT SAPHENOUS VEIN: Proximal: 0.3 cm; Reflux: 0 ms DUPLICATED LATERAL GREAT SAPHENOUS VEIN: Diameter: None imaged Reflux: NA SMALL SAPHENOUS VEIN: Proximal: 0.3 cm; Reflux: 0 ms Distal: 0.2 cm; Reflux: 0 ms VEIN OF GIACOMINI: Size: NA Reflux: NA PERFORATORS: Location: None imaged Size: NA Reflux: NA VARICOSITIES: Location: Multiple Size: Less than 3 mm Reflux: NA 3. DEEP VENOUS ULTRASOUND OF THE LEFT LOWER EXTREMITY: Common Femoral Vein: Compressible, normal respiratory variation and augmented flow. Femoral Vein: Compressible, normal color flow and augmentation. Popliteal Vein: Compressible, normal augmentation. Deep Reflux: There is no evidence of reflux in the deep system in either the common femoral vein or the popliteal vein. There is no evidence of a James's cyst. 4. SUPERFICIAL ULTRASOUND WITH DOPPLER OF LEFT LOWER EXTREMITY: GREAT SAPHENOUS VEIN: Saphenofemoral Junction: 0.6 cm; Reflux: 0 ms Proximal Thigh: 0.3 cm; Reflux: 0 ms Mid Thigh: 0.3 cm; Reflux: 0 ms Above Knee: 0.3 cm; Reflux: 0 ms At Knee: 0.3 cm; Reflux: 0 ms Below Knee: 0.2 cm; Reflux: 0 ms Mid Calf: 0.2 cm; Reflux: 0 ms Ankle: 0.3 cm; Reflux: 0 ms DUPLICATED MEDIAL GREAT SAPHENOUS VEIN: Proximal: 0.3 cm; Reflux: 0 ms DUPLICATED LATERAL GREAT SAPHENOUS VEIN: Diameter: None imaged Reflux: NA SMALL SAPHENOUS VEIN: Proximal: 0.4 cm; Reflux: 0 ms Distal: 0.3 cm; Reflux: 0 ms VEIN OF GIACOMINI: Size: NA Reflux: NA PERFORATORS: Location: None imaged Size: NA Reflux: NA VARICOSITIES: Location: Multiple Size: Less than 3 mm Reflux: NA US/US venous duplex LE BI IMPRESSION: 1. No venous reflux demonstrated. 2. No DVT. 3. Bilateral lower extremity varicosities measuring less than 3 mm.
== END 2023-05-04 08:28 | disposition home or self-care (01) ==
LOC: HO.US 08:27
PROVIDERS: PCP Internal Medicine; Visit Provider Surgery Vascular Surgery
DX: I83.11 Varicose veins of right lower extremity with inflammation (principal)
CPT/HCPCS: 93970

== ENCOUNTER 2023-05-05 11:14 | Outpatient (AMB) | payer OTHER, SELFPAY ==
--- NOTE | 2023-05-05 11:31 | A.OFFVIS_ITS ---
Intake Vital Signs 05/05/23 11:33 Height 5 ft 7 in Weight 189 lb BMI 29.6 BP 120/82 Blood Pressure Location Rt brachial Position Sitting Intake Visit Reasons: 2m follow up ( ok per MIKE) - Confirmed Intake Note: Patient presents for 2 month follow up. Patient states nothing to report. Allergies No Known Allergies Allergy (Verified 05/05/23 11:33) Medication List - Last Reconciled 05/05/23 by JOSE Brady carbidopa-levodopa 25-100 mg 0.5 tab bid x's 1 week, then 1 tab bid orally 2 times a day; take w/ a cracker 30 minutes before breakfast and dinner, 30 days furosemide (Lasix) 20 mg PO DAILY multivitamin (One-A-Day Essential tablet) 1 tab PO DAILY HPI HPI Comments History of Present Illness Details 47-yr-old female presents for f/u visit. Pt comes today to dsicuss her DaTscan results, fings of which were c/w Parkinson's syndrome. Pt reports she has noticed some improvements since starting CD-LD. She finds it easier to use her right arm. Can now use her right arm to put her hair up into a ponytail. Her tremor varies. She is trying to be more conscious to do foot taps and hyperextend her foot while walking. She does still have RLE swelling- had a LE US a few days ago- results pending. Pt's current PD medication regimen: CD-LD 25-100mg 1 tab bid 04/20/23, Brain LIGIA SPECT study. History: 47-year-old female with tremors and right-sided weakness presents for evaluation of Parkinson's syndrome. Comparison: None. Technique: 5.6 mCi of I- 123 Ioflupane was injected intravenously. After a four-hour delay, SPECT imaging of the brain was performed. Findings: There is moderate decreased uptake in the right putamen and severe decreased uptake in the left putamen. There is bilateral nearly symmetric uptake in the caudate nuclei. Impression: Decreased activity in bilateral basal ganglia, more severe on the left. Differential diagnosis includes Parkinson's disease, multiple system atrophy, progressive supranuclear palsy, dementia with Lewy Bodies, and cortical basal degeneration. [facility] Surgical History History of bunionectomy Family History Mother Ovarian cancer Sister Acute kidney failure Other Mental health disorder Social History Housing: Apartment Alcohol intake: current Alcohol intake frequency: a few times a month Patient Tobacco Use Status: Current someday Tobacco user Tobacco use type: Cigarette Cigarettes Per Day: 2 Years Smoked: 6 years e-Cigarette/Vaping Use: Never Used Substance Use Type: Marijuana service: No Current occupational status: employed Current occupation: right handed Cognitive needs: No Hearing needs: No Vision needs: Yes Female Reproductive History Menstrual Age of Menarche: 14 Review of Systems Const All systems reviewed & are unremarkable except as noted in HPI and below Physical Exam Vital Signs: Last Vital Signs BP 120/82 05/05/23 11:33 BMI result Body Mass Index 29.6 Const General: cooperative and no acute distress Resp Effort & Inspection: normal respiratory effort and able to speak in complete sentences Neuro Other: CN II-XI intact MS- 5/5 in LUE, BLE MS RUE- improved w/ improved RUE ROM RUE rests with hand postured in slight flexion No chin tremor on cheek puff test Mild intermittent RUE rest tremor No RUE wingbeat tremor BUE R > L mild kinetic tremor on finger-nose test RUE tone. Decreased right sided FFM, RUE HANNA, and foot taps Stand easily, no right arm swing w/ hand postured, short steps, steady gait. Psych Appearance: grossly normal Mental Status: mental status grossly normal Speech and movement: Clear speech present Assessment & Plan Assessment & Plan (1) Parkinson's disease: Comment: Positive DaTscan (04/2023). Young onset. Code(s): G20 - Parkinson's disease (2) Tremor: Code(s): R25.1 - Tremor, unspecified (3) Rigidity: Code(s): R29.898 - Other symptoms and signs involving the musculoskeletal system Plan Reviewed DaTscan report. Discussed that pt's constellation of s/s, in addition to positive levodopa response, and abnormal DatScan findings (which are c/w pt's prominent right sided motor symptoms) are c/w a diagnosis of young-onset PD. Information given on local and online Parkinson's resources. Increase CD-LD from 1 tab bid to 1 tab tid. Pt advised to try PD BIG program. Will refer to [facility] genetics- d/t young onset PD. Follow-up in 2 months or sooner prn. Orders: Orders PT Evaluation and Treatment Today G20 - Parkinson's disease Referrals Genetics Referral G20 - Parkinson's disease Medications: Changed From carbidopa-levodopa 25-100 mg 0.5 tab bid x's 1 week, then 1 tab bid orally 2 times a day; take w/ a cracker 30 minutes before breakfast and dinner, 30 days 60 tabs 3RF To carbidopa-levodopa 25-100 mg take 30 minutes before breakfast, lunch, dinner 1 tab PO TID 30 days 90 tabs 6RF Coding Level of Care Code Est Pt Level 4 (29999) Diagnoses Parkinson's disease G20 Tremor R25.1 Rigidity R29.898
[2023-05-05 11:33] VITALS: BP 120/82; BMI 29.6
== END 2023-05-05 12:13 | disposition home or self-care (01) ==
PROVIDERS: PCP Internal Medicine; Visit Provider Nurse Practitioner Family
DX: G20 Parkinson's disease (principal); R25.1 Tremor, unspecified; R29.898 Other symptoms and signs involving the musculoskeletal system
CPT/HCPCS: 99214

== ENCOUNTER → 2023-05-05 11:14 | Outpatient (BNVA) | payer OTHER, SELFPAY | PROVIDERS: PCP Internal Medicine; Visit Provider Nurse Practitioner Family | DX: G20 Parkinson's disease (principal); R29.898 Other symptoms and signs involving the musculoskeletal system | CPT/HCPCS: 99212 ==

== ENCOUNTER 2023-05-24 13:19 | Outpatient (AMB) | payer OTHER, SELFPAY ==
[2023-05-24 13:47] VITALS: BP 122/80; PULSE 76; TEMP 36.7; O2SAT 98; BMI 28.3
--- NOTE | 2023-05-24 13:47 | AM.OFFWIN_ITS ---
Intake Vital Signs 05/24/23 13:47 Height 5 ft 7 in Weight 181 lb BMI 28.3 BP 122/80 Blood Pressure Location Rt brachial Position Sitting Pulse 76 Pulse Source Pulse Oximeter Temp 98.0 F Temp Source Temporal Artery Scan Pulse Oximetry (%) 98 Intake Visit Reasons: EST/cough shivering, runny nose/[phone] Intake Note: pt is here for c/o cough, runny nose, shivering Patient Tobacco Use Status: Current someday Tobacco user Allergies No Known Allergies Allergy (Verified 05/24/23 13:48) Do you need a note to return to daycare/school/sports/work: Yes HPI HPI Comments History of Present Illness Details This is a 47 year old female with a past medical history of Parkinson's Disease presenting for evaluation of a runny nose, chills, cough and weakness that started yesterday. Patient denies having any sick contacts but had a positive test for COVID 19 at home approximately 1 hour ago. The patient noticed that the test was and therefore is requesting a test for COVID to confirm the diagnosis. She denies having any shortness of breath or fevers. [facility] Surgical History History of bunionectomy Family History Mother Ovarian cancer Sister Acute kidney failure Other Mental health disorder Social History Housing: Apartment Alcohol intake: current Alcohol intake frequency: a few times a month Patient Tobacco Use Status: Current someday Tobacco user Tobacco use type: Cigarette Cigarettes Per Day: 2 Years Smoked: 6 years e-Cigarette/Vaping Use: Never Used Substance Use Type: Marijuana service: No Current occupational status: employed Current occupation: right handed Cognitive needs: No Hearing needs: No Vision needs: Yes Female Reproductive History Menstrual Age of Menarche: 14 Review of Systems Const All systems reviewed & are unremarkable except as noted in HPI and below Reports chills, Reports fatigue, Denies fever(s), Reports lethargy and Reports malaise Eyes Reports no additional complaints ENT Reports as per HPI Card Reports no additional complaints and Denies dyspnea Resp Denies chest congestion, Reports cough and Denies dyspnea Endo Reports fatigue Jair/Lymph Reports no additional complaints Physical Exam Vital Signs: Last Vital Signs Temp 98.0 F 05/24/23 13:47 Pulse 76 05/24/23 13:47 BP 122/80 05/24/23 13:47 Pulse Ox 98 05/24/23 13:47 BMI result Body Mass Index 28.3 Const General: cooperative, comfortable, no acute distress, alert and other (afebrile) Nutritional Appearance: average body habitus Orientation/consciousness: patient oriented x3 Limitations: no limitations HEENT Head: Yes normal to inspection Ears: hearing grossly normal bilaterally and TM's normal bilaterally General nose exam: Normal external nose present Face and sinus: Yes normal facial exam and Yes sinuses nontender Mouth: Normal oral and palatal mucosa present and oropharynx normal Throat: Yes posterior oropharynx normal Eyes Conjunctivae: conjunctivae normal Sclerae: sclerae normal EOM: EOMs intact bilaterally Neck Lymphatic: no lymphadenopathy noted Resp Effort & Inspection: normal respiratory effort (No tachypnea) Auscultation: clear to auscultation bilaterally Cardio Rate: regular rate Rhythm: regular rhythm Skin General skin exam: no rashes or lesions noted Neuro General: patient oriented x3 Psych Appearance: grossly normal Mental Status: mental status grossly normal Speech and movement: Normal speech and movement present Affect: normal affect Thought process: Normal thought process present Results Reviewed Results Reviewed: 3pm: COVID test result is positive; patient is reached by phone and positive result is reviewed with the patient. Assessment & Plan Assessment & Plan (1) Cough: Code(s): R05.9 - Cough, unspecified Qualifiers: Cough type: acute Qualified Code(s): R05.1 - Acute cough (2) Weakness: Code(s): R53.1 - Weakness Plan Patient is seen and evaluated and a COVID test is ordered and pending. Patient is afebrile, in no acute distress and lungs are clear to auscultation bilaterally. Patient will be discharged home. Isolation protocols are discussed with the patient given her initial positive test for COVID. Orders: Orders [facility] Covid-19 Ag Today R05.9 - Cough, unspecified, R53.1 - Weakness Coding Level of Care Code Est Pt Level 3 (04420) Diagnoses Acute cough R05.1 Cough type: acute Weakness R53.1
== END 2023-05-24 14:31 | disposition home or self-care (01) ==
PROVIDERS: PCP Internal Medicine; Visit Provider Physician Assistant
DX: R05.1 Acute cough (principal); R53.1 Weakness
CPT/HCPCS: 99213

== ENCOUNTER 2023-05-24 14:13 | Outpatient (REF) | payer OTHER, SELFPAY ==
[2023-05-24 14:33] LABS: Binax Now Covid-19 Ag Positive (Negative)
[2023-05-24 14:34] LABS: Binax Internal Control QC Valid; Binax Performed by: PAULP
== END 2023-05-24 14:14 | disposition home or self-care (01) ==
LOC: HO.HMGCLDS 14:13
PROVIDERS: PCP Internal Medicine; Visit Provider Physician Assistant
DX: R05.9 Cough, unspecified (principal); R53.1 Weakness; Z20.822 Contact with and (suspected) exposure to COVID-19
CPT/HCPCS: 87811

== ENCOUNTER 2023-06-08 11:00 | Outpatient (AMB) | payer OTHER, SELFPAY ==
--- NOTE | 2023-06-08 11:03 | MHC.OFFVIS ---
Intake Intake Visit Reasons: follow up [facility] 05/04/23 Intake Note: pt her for fu [facility] on 05/04/23 she says she is doing good and has no issues today Allergies No Known Allergies Allergy (Verified 06/08/23 11:04) HPI follow up [facility] 05/04/23 HPI Details Pleasant 47-year-old female presents for follow-up regarding venous insufficiency. She has had no significant interval issues. She does report that the swelling did decrease on its own. Unfortunately most recently she has been diagnosed with Parkinson's. That has been a stressor in her life. In terms of her lower extremities she is doing fairly well. She reports that compression did help. She is now for routine follow-up. [facility] Surgical History History of bunionectomy Family History Mother Ovarian cancer Sister Acute kidney failure Other Mental health disorder Social History Housing: Apartment Alcohol intake: current Alcohol intake frequency: a few times a month Patient Tobacco Use Status: Current someday Tobacco user Tobacco use type: Cigarette Cigarettes Per Day: 2 Years Smoked: 6 years e-Cigarette/Vaping Use: Never Used Substance Use Type: Marijuana service: No Current occupational status: employed Current occupation: right handed Cognitive needs: No Hearing needs: No Vision needs: Yes Female Reproductive History Menstrual Age of Menarche: 14 Review of Systems Const All systems reviewed & are unremarkable except as noted in HPI and below Reports no additional complaints ENT Reports Normal hearing present Card Denies chest pain, Denies chest pain at rest, Denies chest pain with activity and Denies pedal edema Resp Denies cough GI Denies abdominal pain Musc Denies abnormal gait, Denies muscle cramps and Denies radiating pain into limb Skin/Breast Denies skin ulcer and Denies wounds Neuro Reports Normal hearing present and Denies abnormal gait Psych Reports no additional complaints Physical Exam Const General: cooperative, healthy appearing and comfortable Orientation/consciousness: oriented to person, oriented to place and oriented to time HEENT Head: Yes normal to inspection Neck Neck: Yes normal visual inspection Carotids: no bruits Chest Chest palpation & inspection: normal inspection of the chest Resp Effort & Inspection: normal respiratory effort and able to speak in complete sentences Auscultation: clear to auscultation bilaterally, no crackles, no rales, no rhonchi and no wheezes Cardio Rate: regular rate Rhythm: regular rhythm Heart sounds: S1 normal heart sound present and S2 normal heart sound present Bruits: no carotid bruits Peripheral pulses: Peripheral pulses 2+ throughout GI Inspection: Yes normal to inspection Skin Wounds: no wounds Hair: normal Neuro General: oriented to person, oriented to place and oriented to time Cranial nerves: Yes CN's II-XII intact bilaterally and Yes Normal hearing present Cognition (Neuro): normal cognition Motor exam (neuro): 5/5 motor strength present throughout Extrem Other: venous exam: +1 edema General: No clubbing, No cyanosis and Yes edema Psych Appearance: grossly normal Mental Status: mental status grossly normal Speech and movement: Normal speech and movement present Results Reviewed Results Reviewed: Brief summary of venous insufficiency testing is as follows: right great saphenous vein: negative right small saphenous vein: negative right accessory vein: none present left great saphenous vein: negative left small saphenous vein: negative left accessory vein: none present Please note there is no evidence of any venous aneurysms or significant tortuosity Assessment & Plan Assessment & Plan (1) Varicose veins of right lower extremity with inflammation: Code(s): I83.11 - Varicose veins of right lower extremity with inflammation Plan: In short patient is negative for any significant venous insufficiency. We did discuss routine conservative measures including compression, elevation, and exercise. The patient will follow up with us on an as-needed basis. Thank you for allowing us to assist in her care. If there are any questions or concerns please do not hesitate to contact us. Coding Level of Care Code Est Pt Level 4 (94615) Diagnoses Varicose veins of right lower extremity with inflammation I83.11
== END 2023-06-08 11:30 | disposition home or self-care (01) ==
PROVIDERS: PCP Internal Medicine; Visit Provider Surgery Vascular Surgery
DX: I83.11 Varicose veins of right lower extremity with inflammation (principal)
CPT/HCPCS: 99213

== ENCOUNTER → 2023-06-08 11:00 | Outpatient (BNVA) | payer OTHER, SELFPAY | PROVIDERS: PCP Internal Medicine; Visit Provider Surgery Vascular Surgery | DX: I83.11 Varicose veins of right lower extremity with inflammation (principal) | CPT/HCPCS: 99212 ==

== ENCOUNTER 2023-10-07 10:42 | Outpatient (AMB) | payer OTHER, SELFPAY ==
--- NOTE | 2023-10-07 10:44 | MHC.OFFVIS ---
Intake Vital Signs 10/07/23 10:50 Height 5 ft 7 in Weight 181 lb 4 oz BMI 28.4 BP 132/80 Blood Pressure Location Rt brachial Position Sitting Pulse 76 Pulse Source Pulse Oximeter Pulse Oximetry (%) 97 Oxygen Delivery Method Room Air Intake Visit Reasons: FOLLOW UP/ LVM Intake Note: Patient presents for f/u never got a call for physical therapy or PD BIG Program Allergies No Known Allergies Allergy (Verified 06/08/23 11:04) Medication List - Last Reconciled 10/07/23 by JOSE Brady carbidopa-levodopa 25-100 mg 1 tab PO TID 30 days melatonin 3 - 6 mg (1 - 2 x 3 mg) PO DAILY PRN 30 days multivitamin (One-A-Day Essential tablet) 1 tab PO DAILY HPI HPI Comments History of Present Illness Details 48-year-old female presents for f/u visit of Parkinson's. Pt reports her BLE vascular studies were normal. She did have a left bunion surgical repair- which has healed w/o complication. Pt's current PD medication regimen: CD-LD 25-100mg 1 tab t.i.d. Pt's primary concerns are: Her leg is bothering her- her RLE feels heavy, tight, like she has to limp. ADL's: Ind Swallowing: Denies Drooling: Denies Orthostatic lightheadedness: Denies Constipation: Denies Freezing: Denies Stiffness: Tremor: None Falls: None Hallucinations: None Memory: May be forgetful Sleep: More difficulty falling asleep- may not fall asleep until 2-3am. Can have ruminating thoughts. Tries breathing exercises which can help. Takes 1 lg coffee only in am. No TV or phone in bed. Room is quiet/comfortable. Exercise: Doing home exercises- working out 3-4 x's per week at home- bodyweight exercises. She did not start PT program- [facility] program is on hold. Other: Right eye has been red, the upper eyelid twitches. [facility] Medical History (Updated 10/07/23 @ 12:18 by JOSE Brady) Parkinson's disease Surgical History History of bunionectomy Family History Mother Ovarian cancer Sister Acute kidney failure Other Mental health disorder Social History Housing: Apartment Alcohol intake: current Alcohol intake frequency: a few times a month Patient Tobacco Use Status: Current someday Tobacco user Tobacco use type: Cigarette Cigarettes Per Day: 2 Years Smoked: 6 years e-Cigarette/Vaping Use: Never Used Substance Use Type: Marijuana service: No Current occupational status: employed Current occupation: right handed Cognitive needs: No Hearing needs: No Vision needs: Yes Female Reproductive History Menstrual Age of Menarche: 14 Review of Systems Const All systems reviewed & are unremarkable except as noted in HPI and below Physical Exam Vital Signs: Last Vital Signs Pulse 76 10/07/23 10:50 BP 132/80 10/07/23 10:50 Pulse Ox 97 10/07/23 10:50 Oxygen Delivery Method Room Air 10/07/23 10:50 BMI result Body Mass Index 28.4 Const General: cooperative and no acute distress Resp Effort & Inspection: normal respiratory effort and able to speak in complete sentences Neuro Other: Expression: [] Voice: [] Tremor: [] Tone: [] Dyskinesia: [] FFM: [] Foot taps: [] Gait: [] Psych: [] Assessment & Plan Assessment & Plan (1) Parkinson's disease without dyskinesia: Comment: Positive DaTscan (04/2023). Young onset. Code(s): G20.A1 - Parkinson's disease without dyskinesia, without mention of fluctuations (2) Gait difficulty: Code(s): R26.9 - Unspecified abnormalities of gait and mobility (3) Rigidity: Code(s): R29.898 - Other symptoms and signs involving the musculoskeletal system Plan Continue CD-LD from 1 tab bid to 1 tab tid. Patient is not interested in increasing or adding additional dopaminergic medication at this time. For sleep: Patient has overall good sleep hygiene practices. Increasing exercise may facilitate sleep. Reviewed simple CBT-I techniques to help reduce ruminating thoughts. May trial melatonin 3-6 mg Q evening p.r.n. Patient advised again to start PT for Parkinson's BIG program- will refer to [facility], Information also given [facility], which has a number of Parkinson's specific exercise classes. [facility] genetics consult as scheduled for 12/06/2023 at 15:[address] Lemus at [facility]- d/t young onset PD. Follow-up in 3 months or sooner prn. Medications: New melatonin take daily in the evening 3 - 6 mg (1 - 2 x 3 mg) PO DAILY 30 days PRN 60 tabs 3RF sleep Refilled carbidopa-levodopa 25-100 mg take 30 minutes before breakfast, lunch, dinner 1 tab PO TID 30 days 90 tabs 6RF Discontinued furosemide (Lasix) Discontinued Reason: Patient no longer taking 20 mg PO DAILY 30 tabs 0RF Coding Level of Care Code Est Pt Level 4 (79303) Diagnoses Parkinson's disease without dyskinesia G20.A1 Gait difficulty R26.9 Rigidity R29.898
[2023-10-07 10:50] VITALS: BP 132/80; PULSE 76; O2SAT 97; BMI 28.4
== END 2023-10-07 11:41 | disposition home or self-care (01) ==
PROVIDERS: PCP Internal Medicine; Visit Provider Nurse Practitioner Family
DX: G20.A1 Parkinson's disease without dyskinesia, without mention of fluctuations (principal); R26.9 Unspecified abnormalities of gait and mobility; R29.898 Other symptoms and signs involving the musculoskeletal system
CPT/HCPCS: 99214

== ENCOUNTER → 2023-10-07 10:42 | Outpatient (BNVA) | payer OTHER, SELFPAY | PROVIDERS: PCP Internal Medicine; Visit Provider Nurse Practitioner Family | DX: G20.A1 Parkinson's disease without dyskinesia, without mention of fluctuations (principal); R26.9 Unspecified abnormalities of gait and mobility; R29.898 Other symptoms and signs involving the musculoskeletal system | CPT/HCPCS: 99212 ==

== ENCOUNTER 2023-11-04 09:53 | Outpatient (AMB) | payer OTHER, SELFPAY ==
[2023-11-04 10:18] VITALS: BP 110/70; BMI 28.2
--- NOTE | 2023-11-04 10:18 | MHC.OFFVIS ---
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 Store Coordinator Required: No Information Interpreted: clinical only Superintendent Circus: Superintendent Circus Present Allergies No Known Allergies Allergy (Verified 11/04/23 10:19) Medication List - Last Reconciled 11/04/23 by Kristal Anglin, ENE carbidopa-levodopa 25-100 mg 1 tab PO TID 30 days melatonin 3 - 6 mg (1 - 2 x 3 mg) PO DAILY PRN 30 days multivitamin (One-A-Day Essential tablet) 1 tab PO DAILY Is last menstrual period known: Yes Last menstrual period: 10/13/23 Do you need a note to return to daycare/school/sports/work: No HPI NUT TIGHTENER annual exam HPI Details Patient 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 She has had very bad news this year in that she was just diagnosed recently with Parkinson's disease early onset as a young person and this is been very upsetting to her she told 1 sister who told another sibling and her mother before she had a chance to tell her mother her sister and mother her supports her sisters also going through health challenges as well. She does have a partner who is supportive and helpful and reminding her to do her exercises which she does every day at home. She has been seeing a doctor in [place] through the [facility] system for the Parkinson's and her last appointment was recent and her next is in 2 months she is on meds 3 times a day that are helping a little bit but it is still very depressing and upsetting to her and when she looks things up online that she was recommended to all she sees our old people with it and it makes her more depressed and sad. She was told about the [facility] that had some groups but they were with older people and she was told about other resources but she sought more as depressing. 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 She does not have a therapist and never has discussed that that might also be support as well. She does not need a Pap smear this year and she did not need STI testing so external exam was done and she is going to be having a mammogram in a couple of months we will see her in 1 year. [facility] Medical History Parkinson's disease Surgical History History of bunionectomy Family History Mother Ovarian cancer Sister Acute kidney failure Other Mental health disorder Social History Housing: Apartment Alcohol intake: current Alcohol intake frequency: a few times a month Patient Tobacco Use Status: Current someday Tobacco user Tobacco use type: Cigarette Cigarettes Per Day: 2 Years Smoked: 6 years e-Cigarette/Vaping Use: Never Used Substance Use Type: Marijuana service: No Current occupational status: employed Current occupation: right handed Cognitive needs: No Hearing needs: No Vision needs: Yes Female Reproductive History Menstrual Age of Menarche: 14 Duration of menses: 3-5 days Date of last menstrual period: 10/13/23 control method: none Total pregnancies: 3 Full term: 3 Date of last pap smear: 07/11/22 (neg.previous pap 01/18,neg.) History of abnormal pap smear: No Physical Exam Vital Signs: Last Vital Signs BP 110/70 11/04/23 10:18 BMI result Body Mass Index 28.2 Chest Chest palpation & inspection: normal inspection of the chest and normal palpation of entire chest wall Breast/axilla inspection: normal inspection of the breasts and normal inspection of the axillae Breast/axilla palpation: normal palpation of the breasts and normal palpation of the axillae Other: Abdomen palpated nontender. Pelvic exam deferred today patient has no concerns about STIs she has not due for Pap today her periods are normal in the last 1 was 3 weeks ago she has had a tubal ligation no concerns of she is sexually active her partner supportive of her situation. Assessment & Plan Assessment & Plan (1) Parkinson's disease without dyskinesia: Comment: Positive DaTscan (04/2023). Young onset. Code(s): G20.A1 - Parkinson's disease without dyskinesia, without mention of fluctuations (2) Weakness: Code(s): R53.1 - Weakness (3) Tremor: Code(s): R25.1 - Tremor, unspecified (4) Well woman exam (no gynecological exam): Code(s): Z00.00 - Encounter for general adult medical examination without abnormal findings (5) Cervical cancer screening: Comment: 07/20/2022 Pap is negative with negative HPV. 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 She has had very bad news this year in that she was just diagnosed recently with Parkinson's disease early onset as a young person and this is been very upsetting to her she told 1 sister who told another sibling and her mother before she had a chance to tell her mother her sister and mother her supports her sisters also going through health challenges as well. She does have a partner who is supportive and helpful and reminding her to do her exercises which she does every day at home. She has been seeing a doctor in [place] through the [facility] system for the Parkinson's and her last appointment was recent and her next is in 2 months she is on meds 3 times a day that are helping a little bit but it is still very depressing and upsetting to her and when she looks things up online that she was recommended to all she sees our old people with it and it makes her more depressed and sad. She was told about the [facility] that had some groups but they were with older people and she was told about other resources but she sought more as depressing. 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 She does not have a therapist and never has discussed that that might also be support as well. She does not need a Pap smear this year and she did not need STI testing so external exam was done and she is going to be having a mammogram in a couple of months we will see her in 1 year. Coding Level of Care Code Est Pt Prev Care 40-64y(14361) Diagnoses Parkinson's disease without dyskinesia G20.A1 Weakness R53.1 Tremor R25.1 Well woman exam (no gynecological exam) Z00.00 Cervical cancer screening Z12.4
== END 2023-11-04 11:13 | disposition home or self-care (01) ==
LOC: HO.HWSM 09:54
PROVIDERS: PCP Internal Medicine; Visit Provider Advanced Practice Midwife
DX: Z01.419 Encounter for gynecological examination (general) (routine) without abnormal findings (principal); R53.1 Weakness; G20.A1 Parkinson's disease without dyskinesia, without mention of fluctuations
CPT/HCPCS: 99396

== ENCOUNTER → 2023-11-04 09:53 | Outpatient (BNVA) | payer OTHER, SELFPAY | PROVIDERS: PCP Internal Medicine; Visit Provider Advanced Practice Midwife | DX: G20.A1 Parkinson's disease without dyskinesia, without mention of fluctuations (principal); Z00.00 Encounter for general adult medical examination without abnormal findings; Z12.4 Encounter for screening for malignant neoplasm of cervix; R53.1 Weakness | CPT/HCPCS: 99396 ==

== ENCOUNTER 2023-12-16 08:58 | Outpatient (AMB) | payer OTHER, SELFPAY ==
[2023-12-16 09:00] VITALS: BP 110/70; PULSE 77; O2SAT 97; BMI 28.7
--- NOTE | 2023-12-16 09:00 | MHC.OFFVIS ---
Intake Vital Signs 12/16/23 09:00 Height 5 ft 7 in Weight 183 lb 2 oz BMI 28.7 BP 110/70 Blood Pressure Location Lt brachial Position Sitting Pulse 77 Pulse Source Pulse Oximeter Pulse Oximetry (%) 97 Oxygen Delivery Method Room Air Intake Visit Reasons: 3 [id number] Security Developer Required: No Security Developer Name: Self Allergies No Known Allergies Allergy (Verified 12/16/23 10:13) Medication List - Last Reconciled 12/16/23 by JOSE Brady carbidopa-levodopa 25-100 mg 1 tab PO TID 30 days melatonin 3 - 6 mg (1 - 2 x 3 mg) PO DAILY PRN 30 days HPI HPI Comments History of Present Illness Details 48-yr-old female presents for f/u visit. Pt denies any significant interval medical history changes, other than recently spraining her left ankle. She has seen Dr Mcguire for this, and is wearing an ankle brace. She plans to go to [facility] urgent care today as it is still sore and swollen. Pt's current PD medication regimen: CD-LD 25-100mg 1 tab tid Do medication effects last between doses: Yes She has not heard from the PT PD BIG program or the [facility] genetics referral- there was a note that appt was on 12/06/23- but states she did not know about this. ADL's: Ind, her ability to lift use her RUE varies. May be prone to use her left hand more often. Swallowing: Denies Drooling: Denies Orthostatic lightheadedness: Denies Constipation: Denies Freezing: Denies Stiffness: Tremor: None Falls: None Hallucinations: None Mood: Good- usually in a good mood Memory: May be forgetful Sleep: Sleeping better w/ Melatonin. Not over thinking. Exercise: Priro to hurting her left ankle, had been doing home exercises- working out 3-4 x's per week at home- bodyweight exercises. She did not start PD BIG PT yet- did not hear from them. Other: Right eye redness and twitching. [facility] Medical History Parkinson's disease Surgical History History of bunionectomy Family History Mother Ovarian cancer Sister Acute kidney failure Other Mental health disorder Social History Housing: Apartment Alcohol intake: current Alcohol intake frequency: a few times a month Patient Tobacco Use Status: Current someday Tobacco user Tobacco use type: Cigarette Cigarettes Per Day: 2 Years Smoked: 6 years e-Cigarette/Vaping Use: Never Used Substance Use Type: Marijuana service: No Current occupational status: employed Current occupation: right handed Cognitive needs: No Hearing needs: No Vision needs: Yes Female Reproductive History Menstrual Age of Menarche: 14 Review of Systems Const All systems reviewed & are unremarkable except as noted in HPI and below Physical Exam Vital Signs: Last Vital Signs Pulse 77 12/16/23 09:00 BP 110/70 12/16/23 09:00 Pulse Ox 97 12/16/23 09:00 Oxygen Delivery Method Room Air 12/16/23 09:00 BMI result Body Mass Index 28.7 Const General: cooperative and no acute distress Resp Effort & Inspection: normal respiratory effort and able to speak in complete sentences Neuro Other: General: A&O x's 3 Expression: Mildly decreased Voice: Soft Tremor: No tremor today Tone: RUE rigidity Dyskinesia: None FFM: RUE mild bradykinesia Foot taps: RLE bradykinesia Gait: Stands ok, decreased Right arm swing, short steps, mild left antalgic gait- wearing ankle brace. Psych: Pleasant affect. Assessment & Plan Assessment & Plan (1) Parkinson's disease without dyskinesia: Comment: Positive DaTscan (04/2023). Young onset. Code(s): G20.A1 - Parkinson's disease without dyskinesia, without mention of fluctuations (2) Gait difficulty: Code(s): R26.9 - Unspecified abnormalities of gait and mobility (3) Rigidity: Code(s): R29.898 - Other symptoms and signs involving the musculoskeletal system Plan Continue CD-LD from 1 tab bid to 1 tab tid. Continue melatonin 3-6 mg Q evening p.r.n. Pt may benefit from PT for her left ankle sprain/pain- she likely will not be able to do PD BIG program until this has resolved. Pt to update us after hse has urgent care eval. Hold PT for Parkinson's BIG program- will refer to [facility], Will f/u on status of [facility] genetics consult- was scheduled for 12/06/2023 at 15:[address] Lemus at [facility]- d/t young onset PD. Follow-up in 6 months or sooner prn. Coding Level of Care Code Est Pt Level 4 (45950) Diagnoses Parkinson's disease without dyskinesia G20.A1 Gait difficulty R26.9 Rigidity R29.898
== END 2023-12-16 09:35 | disposition home or self-care (01) ==
PROVIDERS: PCP Internal Medicine; Visit Provider Nurse Practitioner Family
DX: G20.A1 Parkinson's disease without dyskinesia, without mention of fluctuations (principal); R26.9 Unspecified abnormalities of gait and mobility; R29.898 Other symptoms and signs involving the musculoskeletal system
CPT/HCPCS: 99214

== ENCOUNTER → 2023-12-16 08:58 | Outpatient (BNVA) | payer OTHER, SELFPAY | PROVIDERS: PCP Internal Medicine; Visit Provider Nurse Practitioner Family | DX: G20.A1 Parkinson's disease without dyskinesia, without mention of fluctuations (principal); R26.9 Unspecified abnormalities of gait and mobility; R29.898 Other symptoms and signs involving the musculoskeletal system | CPT/HCPCS: 99212 ==

== ENCOUNTER 2023-12-16 10:06 | Outpatient (AMB) | payer OTHER, SELFPAY ==
[2023-12-16 10:10] VITALS: BP 116/76; PULSE 74; TEMP 36.3; O2SAT 98; BMI 28.7
--- NOTE | 2023-12-16 10:10 | AM.OFFWIN_ITS ---
Intake Vital Signs 12/16/23 10:10 Height 5 ft 7 in Weight 183 lb BMI 28.7 BP 116/76 Blood Pressure Location Lt brachial Position Sitting Pulse 74 Pulse Source Pulse Oximeter Temp 97.4 F Temp Source Temporal Artery Scan Pulse Oximetry (%) 98 Oxygen Delivery Method Room Air Intake Visit Reasons: EP Lft pain inside ankle (lobby) Intake Note: pt is here today for lft ankle pain inside started 2 weeks ago Patient Tobacco Use Status: Current someday Tobacco user Allergies No Known Allergies Allergy (Verified 12/16/23 10:13) Do you need a note to return to daycare/school/sports/work: No HPI HPI Comments History of Present Illness Details 48 y/o female patient who presents to [facility] in clinic with c/o left ankle pain x 2 days. [facility] Medical History Parkinson's disease Surgical History History of bunionectomy Family History Mother Ovarian cancer Sister Acute kidney failure Other Mental health disorder Social History Housing: Apartment Alcohol intake: current Alcohol intake frequency: a few times a month Patient Tobacco Use Status: Current someday Tobacco user Tobacco use type: Cigarette Cigarettes Per Day: 2 Years Smoked: 6 years e-Cigarette/Vaping Use: Never Used Substance Use Type: Marijuana service: No Current occupational status: employed Current occupation: right handed Cognitive needs: No Hearing needs: No Vision needs: Yes Female Reproductive History Menstrual Age of Menarche: 14 Review of Systems Const All systems reviewed & are unremarkable except as noted in HPI and below Physical Exam Vital Signs: Last Vital Signs Temp 97.4 F 12/16/23 10:10 Pulse 74 12/16/23 10:10 BP 116/76 12/16/23 10:10 Pulse Ox 98 12/16/23 10:10 Oxygen Delivery Method Room Air 12/16/23 10:10 BMI result Body Mass Index 28.7 Const General: comfortable and no acute distress Orientation/consciousness: patient oriented x3 Neuro General: patient oriented x3, gait normal and moves all extremities Extrem Left lower extremity: ankle Details: normal to inspection, tenderness Location: of the achilles tendon, no edema and normal ROM; no swelling and foot Details: no edema; no unusual warmth and no crepitus Psych Speech and movement: Normal speech and movement present Assessment & Plan Assessment & Plan (1) Left ankle pain: Code(s): M25.572 - Pain in left ankle and joints of left foot Qualifiers: Chronicity: acute Qualified Code(s): M25.572 - Pain in left ankle and joints of left foot Plan: - IceHot - Wrapped with Eran - Acetaminophen for pain relief. Plan - IceHot - Wrapped with Eran - Acetaminophen for pain relief. Orders: Orders XR ankle LT 2V Today M25.572 - Pain in left ankle and joints of left foot Coding Level of Care Code Est Pt Level 3 (47490) Diagnoses Acute left ankle pain M25.572 Chronicity: acute Time Spent (min) 15
== END 2023-12-16 11:06 | disposition home or self-care (01) ==
PROVIDERS: PCP Internal Medicine; Visit Provider Nurse Practitioner Family
DX: M25.572 Pain in left ankle and joints of left foot (principal)
CPT/HCPCS: 99213

== ENCOUNTER 2023-12-16 10:35 | Outpatient (REF) | payer OTHER, SELFPAY ==
--- NOTE | ~2023-12-16 | XR_ITS ---
EXAMINATION: XR ANKLE, LEFT CLINICAL INFORMATION: Pain in left ankle and joints of the left foot. Left ankle pain for 2 days. COMPARISON: 03/10/2023. TECHNIQUE: AP, lateral, and mortise views of the left ankle. FINDINGS: Radiopaque marker placed by technologist indicating area of concern as indicated by the patient along the medial aspect of the ankle. Soft tissue swelling along the medial aspect of the ankle with ankle joint effusion. Redemonstration of surgical screws in the partially imaged first metatarsal. There is increased ossification along the inferior aspect of medial malleolus which could be related to hypertrophic spurring versus ossicle, possibly related to prior trauma. Ankle mortise is preserved. Tiny dorsal and calcaneal spurs. XR/XR ankle LT 2V IMPRESSION: 1. Soft tissue swelling along the medial aspect of the ankle with ankle joint effusion. 2. Increased ossification along the inferior aspect of medial malleolus which could be related to hypertrophic spurring versus ossicle, possibly related to prior trauma. Correlation with clinical exam recommended to determine further management including possible additional imaging. This study was presented today 12/27/2023 for interpretation. PSA staff will provide results to referring provider at this time.
== END 2023-12-16 10:36 | disposition home or self-care (01) ==
LOC: HO.HMGCX 10:35
PROVIDERS: PCP Internal Medicine; Visit Provider Nurse Practitioner Family
DX: M25.572 Pain in left ankle and joints of left foot (principal)
CPT/HCPCS: 73600

== ENCOUNTER 2024-02-15 09:05 | Outpatient (REF) | payer OTHER, SELFPAY | END 2024-02-15 09:06 | disposition home or self-care (01) | LOC: HO.MAMMO 09:05 | PROVIDERS: PCP Internal Medicine; Visit Provider Internal Medicine | DX: Z12.31 Encounter for screening mammogram for malignant neoplasm of breast (principal) | CPT/HCPCS: 77063; 77067 ==

== ENCOUNTER → 2024-02-15 09:30 | Outpatient (BNV) | payer OTHER, SELFPAY | PROVIDERS: PCP Internal Medicine; Visit Provider Radiology Diagnostic Radiology | DX: Z12.31 Encounter for screening mammogram for malignant neoplasm of breast (principal) | CPT/HCPCS: 77063; 77067 ==

== ENCOUNTER 2024-02-16 09:49 | Outpatient (AMB) | payer OTHER, SELFPAY ==
[2024-02-16 10:36] VITALS: BP 112/74; PULSE 80; O2SAT 99; BMI 27.8
--- NOTE | 2024-02-16 10:36 | MHC.PC.OV ---
Vital Signs 02/16/24 10:36 Height 5 ft 7 in Weight 177 lb 4 oz BMI 27.8 BP 112/74 Blood Pressure Location Rt brachial Position Sitting Pulse 80 Pulse Source Pulse Oximeter Pulse Oximetry (%) 99 Oxygen Delivery Method Room Air Intake Visit Reasons: Annual PE + NEEDS PHQ9 Allergies No Known Allergies Allergy (Verified 02/16/24 10:40) Medication List - Last Reconciled 02/16/24 by Andrew Mcguire MD carbidopa-levodopa 25-100 mg 1 tab PO TID 30 days melatonin 3 - 6 mg (1 - 2 x 3 mg) PO DAILY PRN 30 days Tobacco use date assessed: 02/16/24 Dental Screening Dental Screen Date: 02/16/24 Did you have a dental visit in the last 12 months?: Yes Did you have a dental problem in the last 6 months where you did not have access to dental care?: No Was dental information given to patient?: Patient has dentist HPI Annual PE + NEEDS PHQ9 HPI Details Patient is a 48-year-old female came in today for her annual physical exam Patient has been having pain in her left ankle She has a history of injury to that ankle, and status post surgery by [facility] Patient says that she was evaluated at walk-in clinic and had x-ray done Report reviewed with the patient which showed some ossification of tendon and effusion Her ankle is feeling better, physical therapy was ordered which she has not started as she was waiting for Neurology evaluation Patient is requesting referral to [facility] which was placed for her. Patient had a brain scan done which showed signs of Parkinson's disease And her physical exam is also consistent with that. She was started on levodopa feeling slightly better Continued to drink alcohol, once again advised patient to stop as soon as possible it will make her Parkinson's worse. Lab order placed to be done fasting She has a history of impaired fasting sugar Mammogram was yesterday report is not available yet OBGYN visit was October of this year We will set up another time after labs if needed Otherwise physical exam 1 yr [facility] Medical History Parkinson's disease Surgical History History of bunionectomy Family History Mother Ovarian cancer Sister Acute kidney failure Other Mental health disorder Social History Housing: Apartment Alcohol intake: current Alcohol intake frequency: a few times a month Patient Tobacco Use Status: Current someday Tobacco user Tobacco use type: Cigarette Cigarettes Per Day: 2 Years Smoked: 6 years e-Cigarette/Vaping Use: Never Used Substance Use Type: Marijuana service: No Current occupational status: employed Current occupation: right handed Cognitive needs: No Hearing needs: No Vision needs: Yes Female Reproductive History Menstrual Age of Menarche: 14 Questionnaire PHQ-9 Over the last 2 weeks, how often have you been bothered by any of the following problems? 1. Little interest or pleasure in doing things: not at all 2. Feeling down, depressed, or hopeless: several days 3. Trouble falling or staying asleep, or sleeping too much: nearly every day 4. Feeling tired or having little energy: not at all 5. Poor appetite or overeating: more than half the days 6. Feeling bad about yourself - or that you are a failure or have let yourself or your family down: not at all 7. Trouble concentrating on things, such as reading the newspaper or watching television: not at all 8. Moving or speaking so slowly that other people could have noticed. Or the opposite - being so fidgety or restless that you have been moving around a lot more than usual: not at all 9. Thoughts that you would be better off or of hurting yourself in some way: not at all Total score: 6 Depression Screening Interpretation: Negative Depression Screening Done: Yes 89013 - PHQ-9 Billing: Yes Source: Developed by Drs. Bakari Bhakta, Alley Adair, Issac Peoples and colleagues, with an educational lewis from [employer]. Thrive Questionnaire Date Thrive assessed: 02/16/24 I am a: Patient What is your living situation today?: I have a steady place to live Within the past 12 months, did the food you bought not last and you didn't have the money to get more?: Never true Within the past 12 months, did you worry whether your food would run out before you got money to buy more?: Never true Do you have trouble paying for medicines?: No Do you have trouble getting transportation to medical appointments?: No Do you have trouble paying your heating and electricity bill?: No Do you have trouble taking care of your child, family member or friend?: No Do you have trouble with day-to-day activities such as bathing, preparing meals, shopping, managing finances, etc.?: No Are you currently unemployed and looking for a job?: No Are you interested in more education?: No Please select the resources that you would like help with: None Currently or been in a relationship where the following occur: no concerns reported THRIVE Score: 0 AUDIT C Alcohol Use Questionnaire (AUDIT-C) 1. How often do you have a drink containing alcohol?: 2-3 times a week 2. How many drinks containing alcohol do you have on a typical day when you are drinking?: 1 or 2 3. How often do you have six or more drinks on one occasion?: Never Total Score: 3 Score Reviewed/Action Taken: Yes STACI-7 AMB Questionnaire STACI-7 Date STACI - 7 assessed: 02/16/24 Feeling nervous, anxious, or on edge: 1 = Several days Not being able to stop or control worryin = Several days Worrying too much about different things: 2 = More than half the days Trouble relaxin = Several days Being so restless that it is hard to sit still: 0 = Not at all Becoming easily annoyed or irritable: 0 = Not at all Feeling afraid as if something awful might happen: 1 = Several days Total STACI-7 score (0-4 normal; 5-9 mild; 10-14 moderate; 15-21 severe): 6 Source: Developed by Drs. Bakari Bhakta, Alley Adair, Issac Peoples and colleagues, with an educational lewis from [employer]. STACI-7 Assessment Billing STACI-7 Assessment Tool: STACI-7 Assessment 75823 Physical exam (Primary Care) Vital Signs: Last Vital Signs Pulse 80 02/16/24 10:36 BP 112/74 02/16/24 10:36 Pulse Ox 99 02/16/24 10:36 Oxygen Delivery Method Room Air 02/16/24 10:36 BMI result Body Mass Index 27.8 Tobacco/Smoking Status: Tobacco use Status Tobacco use date assessed 02/16/24 02/16/24 10:41 Patient Tobacco Use Status Current someday Tobacco 02/16/24 10:41 Tobacco use type Cigarette 02/16/24 10:41 e-Cigarette/Vaping Use Never Used 02/16/24 10:41 PHQ-9: PHQ-9 Score PHQ-9: Total score 6 02/16/24 11:07 Depression Screening Interpretation: Negative Thrive Assessment: Date of Thrive Assessment Date Thrive assessed 02/16/24 02/16/24 11:07 Currently or been in a relationship where the following occur: no concerns reported Assessment and Plan Assessment & Plan (1) Encounter for general adult medical examination with abnormal findings: Code(s): Z00.01 - Encounter for general adult medical examination with abnormal findings (2) Alcoholism: Code(s): F10.20 - Alcohol dependence, uncomplicated (3) LFT elevation: Code(s): R79.89 - Other specified abnormal findings of blood chemistry (4) Vitamin D deficiency: Code(s): E55.9 - Vitamin D deficiency, unspecified (5) Impaired fasting blood sugar: Code(s): R73.01 - Impaired fasting glucose (6) Hepatitis C test positive: Code(s): B19.20 - Unspecified viral hepatitis C without hepatic coma (7) Parkinson's disease without dyskinesia: Comment: Positive DaTscan (04/2023). Young onset. Code(s): G20.A1 - Parkinson's disease without dyskinesia, without mention of fluctuations Qualifiers: Fluctuating manifestations: unspecified whether manifestations fluctuate Qualified Code(s): G20.A1 - Parkinson's disease without dyskinesia, without mention of fluctuations (8) Ankle pain, left: Code(s): M25.572 - Pain in left ankle and joints of left foot Plan Patient is a 48-year-old female came in today for her annual physical exam Patient has been having pain in her left ankle She has a history of injury to that ankle, and status post surgery by [facility] Patient says that she was evaluated at walk-in clinic and had x-ray done Report reviewed with the patient which showed some ossification of tendon and effusion Her ankle is feeling better, physical therapy was ordered which she has not started as she was waiting for Neurology evaluation Patient is requesting referral to [facility] which was placed for her. Patient had a brain scan done which showed signs of Parkinson's disease And her physical exam is also consistent with that. She was started on levodopa feeling slightly better Continued to drink alcohol, once again advised patient to stop as soon as possible it will make her Parkinson's worse. Lab order placed to be done fasting She has a history of impaired fasting sugar Mammogram was yesterday report is not available yet OBGYN visit was October of this year We will set up another time after labs if needed Otherwise physical exam 1 yr Orders: Orders Complete Blood Count Auto Diff Today B19.20 - Unspecified viral hepatitis C without hepatic coma, E55.9 - Vitamin D deficiency, unspecified, F10.20 - Alcohol dependence, uncomplicated, G20.A1 - Parkinson's disease without dyskinesia, without mention of fluctuations, R73.01 - Impaired fasting glucose, R79.89 - Other specified abnormal findings of blood chemistry, Z00.01 - Encounter for general adult medical examination with abnormal findings Comprehensive Barton. Panel Fast Today B19.20 - Unspecified viral hepatitis C without hepatic coma, E55.9 - Vitamin D deficiency, unspecified, F10.20 - Alcohol dependence, uncomplicated, G20.A1 - Parkinson's disease without dyskinesia, without mention of fluctuations, R73.01 - Impaired fasting glucose, R79.89 - Other specified abnormal findings of blood chemistry, Z00.01 - Encounter for general adult medical examination with abnormal findings TSH reflex Free T4 Today B19.20 - Unspecified viral hepatitis C without hepatic coma, E55.9 - Vitamin D deficiency, unspecified, F10.20 - Alcohol dependence, uncomplicated, G20.A1 - Parkinson's disease without dyskinesia, without mention of fluctuations, R73.01 - Impaired fasting glucose, R79.89 - Other specified abnormal findings of blood chemistry, Z00.01 - Encounter for general adult medical examination with abnormal findings Lipid Panel Today B19.20 - Unspecified viral hepatitis C without hepatic coma, E55.9 - Vitamin D deficiency, unspecified, F10.20 - Alcohol dependence, uncomplicated, G20.A1 - Parkinson's disease without dyskinesia, without mention of fluctuations, R73.01 - Impaired fasting glucose, R79.89 - Other specified abnormal findings of blood chemistry, Z00.01 - Encounter for general adult medical examination with abnormal findings Hemoglobin A1c Today B19.20 - Unspecified viral hepatitis C without hepatic coma, E55.9 - Vitamin D deficiency, unspecified, F10.20 - Alcohol dependence, uncomplicated, G20.A1 - Parkinson's disease without dyskinesia, without mention of fluctuations, R73.01 - Impaired fasting glucose, R79.89 - Other specified abnormal findings of blood chemistry, Z00.01 - Encounter for general adult medical examination with abnormal findings Vitamin B12 Today B19.20 - Unspecified viral hepatitis C without hepatic coma, E55.9 - Vitamin D deficiency, unspecified, F10.20 - Alcohol dependence, uncomplicated, G20.A1 - Parkinson's disease without dyskinesia, without mention of fluctuations, R73.01 - Impaired fasting glucose, R79.89 - Other specified abnormal findings of blood chemistry, Z00.01 - Encounter for general adult medical examination with abnormal findings Referrals Orthopedics Referral M25.572 - Pain in left ankle and joints of left foot Coding Level of Care Code Est Pt Level 3 (93341) Est Pt Prev Care 40-64y(88024) Diagnoses Encounter for general adult medical examination with abnormal findings Z00.01 Alcoholism F10.20 LFT elevation R79.89 Vitamin D deficiency E55.9 Impaired fasting blood sugar R73.01 Hepatitis C test positive B19.20 Parkinson's disease without dyskinesia, unspecified whether manifestations fluctuate G20.A1 Fluctuating manifestations: unspecified whether manifestations fluctuate Ankle pain, left M25.572 Additional Codes STACI-7 Assessment Billing - STACI-7 Assessment Tool: STACI-7 Assessment 26235 ([id number])
== END 2024-02-16 11:06 | disposition home or self-care (01) ==
LOC: HO.HMGC 09:49
PROVIDERS: PCP Internal Medicine; Visit Provider Internal Medicine
DX: Z00.01 Encounter for general adult medical examination with abnormal findings (principal); F10.20 Alcohol dependence, uncomplicated; R79.89 Other specified abnormal findings of blood chemistry; E55.9 Vitamin D deficiency, unspecified; R73.01 Impaired fasting glucose; B19.20 Unspecified viral hepatitis C without hepatic coma; G20.A1 Parkinson's disease without dyskinesia, without mention of fluctuations; M25.572 Pain in left ankle and joints of left foot
CPT/HCPCS: 99213; 99396

== ENCOUNTER 2024-02-16 11:07 | Outpatient (REF) | payer OTHER, SELFPAY ==
[2024-02-16 13:15] LABS: MANUAL DIFF FLAG NO
[2024-02-16 13:41] LABS: Basophils Absolute Auto 0.1 X10*3/uL (0.0-0.2); Basophils Percent Auto 0.8 % (0-2); Eosinophils Absolute Auto 0.2 X10*3/uL (0.0-0.4); Eosinophils Percent Auto 2.5 % (0-4); Hematocrit 44.3 % (37.0-47.0); Hemoglobin 14.2 g/dl (12.0-16.0); Imm Gran Abs Auto 0.02 X10*3/uL (0.00-0.03); Imm Gran Pct Auto 0.3 % (0.0-0.4); Lymphocytes Absolute Auto 1.9 X10*3/uL (1.2-4.9); Lymphocytes Percent Auto 31.7 % (20-40); Mean Corpuscular HGB Conc 32.1 g/dl (31.0-35.0); Mean Corpuscular Hemoglobin 28.5 pg (27.0-33.0); Mean Corpuscular Volume 88.8 fL (80.0-98.0); Mean Platelet Volume 12.6 fL (9.4-12.3); Monocytes Absolute Auto 0.4 X10*3/uL (0.1-1.2); Monocytes Percent Auto 7.2 % (2-11); Neutrophils Absolute Auto 3.4 x10*3/uL (2.0-8.3); Neutrophils Percent Auto 57.5 % (45-73); Platelet Count 233 X10*3/uL (160-400); Red Blood Count 4.99 X10*6/uL (4.20-5.50); Red Cell Distribution Width 13.2 % (11.0-16.0)
[2024-02-16 13:49] LABS: Estimated Average Glucose 120 mg/dL; Hemoglobin A1C 151.1078 umol/L; Hemoglobin A1c % 5.8 % (<6.0)
[2024-02-16 13:59] LABS: Alanine Aminotransferase 20 U/L (0-31); Albumin Level 4.6 g/dL (3.5-5.0); Alkaline Phosphatase 55 U/L (39-117); Anion Gap 14 (12-20); Aspartate Amino Transferase 21 U/L (5-31); Bilirubin Total 0.6 mg/dL (0.0-1.0); Blood Urea Nitrogen 15 mg/dL (9-16); Carbon Dioxide 24 mmol/L (22-29); Chloride 107 mmol/L (96-108); Cholesterol 184 mg/dL (<200); Estimated Glomerular Filt Rate > 60; Glucose Fasting 105 mg/dL (60-99); HDL Cholesterol 60 mg/dL (>40); LDL Cholesterol Calculated 107 mg/dL (<100); Potassium 4.4 mmol/L (3.3-5.1); Sodium 141 mmol/L (135-145); Total Protein 8.1 g/dL (6.5-8.0); Triglycerides 88 mg/dL (<150)
[2024-02-16 14:14] LABS: Vitamin B12 620 pg/mL (200-900)
[2024-02-16 14:18] LABS: TSH reflex Free T4 0.72 uIU/mL (0.32-4.0)
== END 2024-02-16 11:08 | disposition home or self-care (01) ==
LOC: HO.HMGCLDS 11:07
PROVIDERS: PCP Internal Medicine; Visit Provider Internal Medicine
DX: Z00.01 Encounter for general adult medical examination with abnormal findings (principal); F10.20 Alcohol dependence, uncomplicated; R79.89 Other specified abnormal findings of blood chemistry; E55.9 Vitamin D deficiency, unspecified; R73.01 Impaired fasting glucose; B19.20 Unspecified viral hepatitis C without hepatic coma; G20.A1 Parkinson's disease without dyskinesia, without mention of fluctuations
CPT/HCPCS: 36415; 80053; 80061; 82607; 83036; 84443; 85025

== ENCOUNTER 2024-02-21 07:09 | Emergency (ER) | payer OTHER, SELFPAY ==
--- NOTE | 2024-02-21 07:31 | ED.BACK ---
HPI - Back Pain/Injury General Chief Complaint: Back Pain/Injury Stated Complaint: back pain Time Seen by Provider: 02/21/24 07:30 Source: patient Mode of arrival: ambulatory Limitations: no limitations History of Present Illness ED Provider: Pam Holt PA-C HPI Narrative: 48 yo female with history of Parkinson's disease, alcohol use disorder, hx falls who presents to the ER for evaluation of back pain x4 days. She was organizing her closet on Wednesday and later on began having pain in her low back that has been progressively worsening since then. Denies pop or pulling sensation. The pain is constant, worsening, 'burning' quality, located in the bilateral low back, nonradiating, no numbness or tingling. Pain is worse with sitting and walking. Has been using pain patches that her mom gave her without relief, has not tried any pain medications. Denies bowel or bladder dysfunction. MD elicited complaint: back pain Onset (ago): day(s) (4) Timing: constant and progressively worsening Similar Symptoms Previously: No Quality: burning Location: lumbar spine Radiation: none Exacerbating factors: sitting upright and walking Relieving factors: none (prone) Context: other (gentle lifting/cleaning) Associated symptoms: denies other symptoms Treatments prior to arrival: other (OTC pain patch) Work related injury: No Related Data Previous Rx's ?Medication ?Instructions ?Recorded carbidopa 25 mg-levodopa 100 mg 1 tab PO TID 30 days #90 tabs 10/07/23 tablet melatonin 3 mg tablet 3 - 6 mg (1 - 2 x 3 mg) PO DAILY 10/07/23 PRN sleep 30 days #60 tabs cyclobenzaprine 10 mg tablet 10 mg PO TID PRN muscle spasm #14 02/21/24 tabs ibuprofen 600 mg tablet 600 mg PO Q8H PRN pain #14 tabs 02/21/24 lidocaine 5 % topical patch 1 patch topical DAILY #15 ea 02/21/24 Allergies Allergy/AdvReac Type Severity Reaction Status Date / Time No Known Allergies Allergy Verified 02/21/24 07:38 Review of Systems Review of Systems: Yes all other systems are reviewed and are negative PMFSH Past Medical History Medical History Parkinson's disease Surgical History History of bunionectomy Family History Family History Mother Ovarian cancer Sister Acute kidney failure Other Mental health disorder Social History Social History Housing: Apartment Alcohol intake: current Alcohol intake frequency: a few times a month Patient Tobacco Use Status: Current someday Tobacco user Tobacco use type: Cigarette Cigarettes Per Day: 2 Years Smoked: 6 years e-Cigarette/Vaping Use: Never Used Substance Use Type: Marijuana Advance Directives: No Advance Directives Information Provided: No service: No Current occupational status: employed Current occupation: right handed Cognitive needs: No Hearing needs: No Vision needs: Yes Physical Exam Vital Signs: Vital Signs: Last Vital Signs Temp 97.2 F 02/21/24 09:14 Pulse 80 02/21/24 09:14 Resp 16 02/21/24 09:14 BP 122/72 02/21/24 09:14 Pulse Ox 100 02/21/24 09:14 O2 Del Method Room Air 02/21/24 07:36 BMI result Body Mass Index 26.8 Appearance: Awake, alert, oriented X3. Lying prone in stretcher. Appears uncomfortable. Head: normocephalic, atraumatic. Eyes: Pupils equal, round and reactive to light. Neck: Normal inspection. Neck supple. CVS: Regular heart rate and rhythm. Pulses normal. Respiratory: No respiratory distress. Lungs clear to auscultation bilaterally, no adventitious lung sounds appreciated. Abdomen: Nondistended. Back: Pain patch present over low back, otherwise normal to inspection. No midline tenderness, no paraspinal tenderness to palpation. ROM limited by pain. Skin: Skin warm and dry. Normal skin color. Normal skin turgor. No rashes. Extremities: No lower extremity edema. No joint swelling. Neuro/psych: Oriented X 3. Right arm tremulousness, hx Parkinsons. Antalgic gait. No sensory deficit. CN II-XII grossly intact. Normal speech and cognition. Medications Administered Discontinued Medications Generic Name Dose Route Start Last Admin Trade Name Freq PRN Reason Stop Dose Admin Acetaminophen 975 mg 02/21/24 07:58 02/21/24 08:19 Acetaminophen 325 Mg Tablet PO 02/21/24 07:59 975 mg ONCE ONE Administration Cyclobenzaprine HCl 10 mg 02/21/24 07:58 02/21/24 08:20 Cyclobenzaprine Hcl 10 Mg Tablet PO 02/21/24 07:59 10 mg ONCE ONE Administration Ketorolac Tromethamine 30 mg 02/21/24 07:58 02/21/24 08:20 Ketorolac Tromethamine 30 Mg/Ml Vial IM 02/21/24 07:59 30 mg ONCE ONE Administration Oxycodone HCl 5 mg 02/21/24 07:58 02/21/24 08:19 Oxycodone Hcl Immed Release 5 Mg Tablet PO 02/21/24 07:59 5 mg ONCE ONE Administration Medical Decision Making Medical Decision Making MDM Narrative: 48 yo female with history of Parkinson's disease, alcohol use disorder, hx falls who presents to the ER for evaluation of back pain x4 days. History and physical reveal nontraumatic bilateral low back pain without radiculopathy. No bowel bladder dysfunction, no midline tenderness. No heavy lifting or pop sensation, low suspicion for herniated disc. No bowel or bladder symptoms, no saddle parasthesias. Cauda equina syndrome ruled out. Pain is likely muscular in nature, aggravated by increased activity while cleaning her closet before the onset of pain. Plan to give one dose of oxycodone, toradol, tylenol, and muscle relaxer for pain control here and recommend follow up outpatient with her PCP. she feels much better after medications, stable for discharge home. Differential Diagnosis Differential Diagnoses: The differential diagnosis associated with the presentation includes Lumbar muscle strain Cauda equina syndrome Herniated disc External Record Review External record reviewed: Outpatient record and Prior outpatient labs Tests considered The following testing was considered but not selected: Considered xray of lumbar spine, however no history of trauma, no midline tenderness on exam, no red flag symptoms. Low suspicion for skeletal issue. Prescription Management I considered prescription management with: Pain Medication Chronic Conditions Patient?s care impacted by: Other (parkinson's disease) Critical Care Time Critical Care Time Critical Care Time: No Discharge Plan Discharge Clinical Impression: Strain of lumbar region Patient Disposition: Home, Self-Care Instructions: Low Back Strain (ED), Lower Back Exercises (ED) Additional Instructions: Your pain is most likely due to muscle strain and spasm. No bending, lifting or twisting. Use ice several times per day for 20 minutes at a time for the next 48 hours and then change to heat. Take medications as prescribed to help with pain and discomfort. Follow up with your Primary Care Doctor this week. If your pain worsens, if you develop new numbness, tingling, weakness, loss of function or incontinence call 911 or come back to the ER right away for evaluation. Prescriptions: New cyclobenzaprine 10 mg tablet 10 mg PO TID PRN (Reason: muscle spasm) Qty: 14 0RF ibuprofen 600 mg tablet 600 mg PO Q8H PRN (Reason: pain) Qty: 14 0RF lidocaine 5 % adhesive patch,medicated 1 patch topical DAILY Qty: 15 0RF Rx Instructions: leave on most painful area for up to 12 hrs No Action melatonin 3 mg tablet 3 - 6 mg PO DAILY PRN (Reason: sleep) 30 Days Qty: 60 3RF Rx Instructions: take daily in the evening carbidopa-levodopa 25-100 mg tablet 1 tab PO TID 30 Days Qty: 90 6RF Rx Instructions: take 30 minutes before breakfast, lunch, dinner Stand Alone Forms: Work/School Release Interventions: ED Discharge Assessment Last Done: 02/21/24 09:14 Discharge Date/Time: 02/21/24 09:15 Print Language: Greenlandic
[2024-02-21 07:36] VITALS: BP 128/78; PULSE 81; RESP 16; TEMP 36.1; O2SAT 99; BMI 26.8
[2024-02-21] MEDS: Acetaminophen 325 MG TABLET 975 MG PO (08:19)
[2024-02-21] MEDS: oxyCODONE HCl Immed Release 5 MG TABLET PO (08:19)
[2024-02-21] MEDS: Cyclobenzaprine HCl 10 MG TABLET PO (08:20)
[2024-02-21] MEDS: Ketorolac Tromethamine 30 MG/ML VIAL IM (08:20)
[2024-02-21 09:14] VITALS: BP 122/72; PULSE 80; RESP 16; TEMP 36.2; O2SAT 100
== END 2024-02-21 09:15 | disposition home or self-care (01) ==
PROVIDERS: Emergency Provider Emergency Medicine; PCP Internal Medicine
DX: S39.012A Strain of muscle, fascia and tendon of lower back, initial encounter (principal); X58.XXXA Exposure to other specified factors, initial encounter; Y93.9 Activity, unspecified; Y92.9 Unspecified place or not applicable; Y99.8 Other external cause status
CPT/HCPCS: 96372; 99283; 99284; J1885

== ENCOUNTER 2024-02-23 13:31 | Outpatient (AMB) | payer OTHER, SELFPAY ==
--- NOTE | 2024-02-23 13:33 | MHC.PC.OV ---
Vital Signs 02/23/24 13:36 Height 5 ft 7 in Weight 181 lb BMI 28.3 BP 110/78 Blood Pressure Location Rt brachial Position Sitting Pulse 80 Pulse Source Pulse Oximeter Pulse Oximetry (%) 98 Oxygen Delivery Method Room Air Intake Visit Reasons: F/u ER Allergies No Known Allergies Allergy (Verified 02/23/24 13:36) Medication List - Last Reconciled 02/23/24 by Andrew Mcguire MD carbidopa-levodopa 25-100 mg 1 tab PO TID 30 days cyclobenzaprine 10 mg PO TID PRN ibuprofen 600 mg PO Q8H PRN lidocaine 5% 1 patch topical DAILY melatonin 3 - 6 mg (1 - 2 x 3 mg) PO DAILY PRN 30 days Tobacco use date assessed: 02/16/24 Dental Screening Dental Screen Date: 02/16/24 HPI F/u ER HPI Details Patient is a 48-year-old female with a history of Parkinson's disease, alcohol use disorder, history of falls, presented to emergency room [facility] on 20 of February with a chief complaint of back pain of 4 days' duration. Prior to that patient was organizing her closet After evaluation she was discharged home with a diagnosis of muscle strain and spasm She was prescribed cyclobenzaprine 10 mg up to 3 times a day for a week And ibuprofen 600 mg with food Lidoderm 5% patches She came in today for follow-up appointment from that visit Patient is using Lidoderm patches paraspinal lumbar area which is helping And she is also taking cyclobenzaprine and ibuprofen Still having discomfort however medication is helping I have sent a refill of all medications We will book a telemedicine visit for 2 weeks to follow-up on that if still having discomfort we will start physical therapy. She said she was lifting and moving air conditioner that day when she was also organizing her closets. FORMERLY [facility], [facility] Medical History Parkinson's disease Surgical History History of bunionectomy Family History Mother Ovarian cancer Sister Acute kidney failure Other Mental health disorder Social History Housing: Apartment Alcohol intake: current Alcohol intake frequency: a few times a month Patient Tobacco Use Status: Current someday Tobacco user Tobacco use type: Cigarette Cigarettes Per Day: 2 Years Smoked: 6 years e-Cigarette/Vaping Use: Never Used Substance Use Type: Marijuana service: No Current occupational status: employed Current occupation: right handed Cognitive needs: No Hearing needs: No Vision needs: Yes Female Reproductive History Menstrual Age of Menarche: 14 Questionnaire Thrive Questionnaire Date Thrive assessed: 02/16/24 STACI-7 AMB Questionnaire STACI-7 Date STACI - 7 assessed: 02/16/24 Source: Developed by Drs. Bakari Bhakta, Alley Adair, Issac Peoples and colleagues, with an educational lewis from [employer]. Review of Systems Const Denies chills and Denies fever(s) ENT Denies epistaxis and Denies nasal discharge Card Denies chest pain Resp Denies chest congestion, Denies cough and Denies hemoptysis GI Denies diarrhea and Denies nausea Skin/Breast Denies rash Neuro Reports no additional complaints Psych Reports no additional complaints Endo Reports no additional complaints Physical exam (Primary Care) Vital Signs: Last Vital Signs Pulse 80 02/23/24 13:36 BP 110/78 02/23/24 13:36 Pulse Ox 98 02/23/24 13:36 Oxygen Delivery Method Room Air 02/23/24 13:36 BMI result Body Mass Index 28.3 Tobacco/Smoking Status: Tobacco use Status Tobacco use date assessed 02/16/24 02/23/24 13:33 Patient Tobacco Use Status Current someday Tobacco 02/23/24 13:33 Tobacco use type Cigarette 02/23/24 13:33 e-Cigarette/Vaping Use Never Used 02/23/24 13:33 Thrive Assessment: Date of Thrive Assessment Date Thrive assessed 02/16/24 02/23/24 13:33 Const General: cooperative, comfortable and no acute distress Orientation/consciousness: patient oriented x3 HENMT Head: Yes normocephalic Eyes General: appearance normal, both eyes and all related structures Neck Neck: Yes supple Resp Effort & Inspection: normal respiratory effort, no cough and no stridor Cardio Rhythm: regular rhythm Heart sounds: S1 normal heart sound present and S2 normal heart sound present Back/Spine/Pelvis Back/spine/pelvis image: 1. Site of discomfort no pain with lumbar spine percussion, range of motion limited secondary to discomfort Skin General skin exam: turgor normal Neuro General: patient oriented x3, tone normal and moves all extremities Extrem Right lower extremity: no edema Left lower extremity: no edema Assessment and Plan Assessment & Plan (1) Hospital discharge follow-up: Code(s): Z09 - Encounter for follow-up examination after completed treatment for conditions other than malignant neoplasm (2) Acute lumbar back pain: Code(s): M54.50 - Low back pain, unspecified Qualifiers: Back pain laterality: bilateral Sciatica presence: with sciatica Sciatica laterality: sciatica of right side Qualified Code(s): M54.41 - Lumbago with sciatica, right side (3) Lumbar paraspinal muscle spasm: Code(s): M62.830 - Muscle spasm of back Plan Patient is a 48-year-old female with a history of Parkinson's disease, alcohol use disorder, history of falls, presented to emergency room [facility] on 20 of February with a chief complaint of back pain of 4 days' duration. Prior to that patient was organizing her closet After evaluation she was discharged home with a diagnosis of muscle strain and spasm She was prescribed cyclobenzaprine 10 mg up to 3 times a day for a week And ibuprofen 600 mg with food Lidoderm 5% patches She came in today for follow-up appointment from that visit Patient is using Lidoderm patches paraspinal lumbar area which is helping And she is also taking cyclobenzaprine and ibuprofen Still having discomfort however medication is helping Pain is located lumbar spine paraspinal area Slight radiation to right hip without any weakness in legs or paresthesia I have sent a refill of all medications We will book a telemedicine visit for 2 weeks to follow-up on that if still having discomfort we will start physical therapy. She said she was lifting and moving air conditioner that day when she was also organizing her closet Medications: Changed From lidocaine 5% leave on most painful area for up to 12 hrs 1 patch topical DAILY 15 ea 0RF To lidocaine 5% leave on most painful area for up to 12 hrs 1 patch topical DAILY 30 days 30 ea 0RF From cyclobenzaprine 10 mg PO TID PRN 14 tabs 0RF muscle spasm To cyclobenzaprine 10 mg PO TID 14 days PRN 30 tabs 0RF muscle spasm From ibuprofen 600 mg PO Q8H PRN 14 tabs 0RF pain To ibuprofen 600 mg PO Q8H 14 days PRN 30 tabs 0RF pain Coding Level of Care Code Est Pt Level 4 (46076) Diagnoses Hospital discharge follow-up Z09 Acute bilateral low back pain with right-sided sciatica M54.41 Back pain laterality: bilateral Sciatica presence: with sciatica Sciatica laterality: sciatica of right side Lumbar paraspinal muscle spasm M62.830
[2024-02-23 13:36] VITALS: BP 110/78; PULSE 80; O2SAT 98; BMI 28.3
== END 2024-02-23 15:57 | disposition home or self-care (01) ==
PROVIDERS: PCP Internal Medicine; Visit Provider Internal Medicine
DX: M54.41 Lumbago with sciatica, right side (principal); Z09 Encounter for follow-up examination after completed treatment for conditions other than malignant neoplasm; M62.830 Muscle spasm of back
CPT/HCPCS: 99214

== ENCOUNTER 2024-03-02 08:50 | Outpatient (AMB) | payer OTHER, SELFPAY ==
--- NOTE | 2024-03-02 09:05 | MHC.PC.OV ---
Intake Visit Reasons: Discuss Results/ Follow up Back pain~ [phone] Allergies No Known Allergies Allergy (Verified 03/02/24 09:06) Medication List - Last Reconciled 03/02/24 by Andrew Mcguire MD carbidopa-levodopa 25-100 mg 1 tab PO TID 30 days cyclobenzaprine 10 mg PO TID PRN 14 days ibuprofen 600 mg PO Q8H PRN 14 days lidocaine 5% 1 patch topical DAILY 30 days melatonin 3 - 6 mg (1 - 2 x 3 mg) PO DAILY PRN 30 days Tobacco use date assessed: 03/02/24 Dental Screening Dental Screen Date: 03/02/24 Did you have a dental visit in the last 12 months?: Yes Did you have a dental problem in the last 6 months where you did not have access to dental care?: No Was dental information given to patient?: Patient has dentist HPI Discuss Results/ Follow up Back pain~ [phone] HPI Details Patient continued to have lower back pain it is now radiating to right leg with tingling sensation She was given script for Lidoderm patches which are not helping, and muscle relaxer along with NSAIDs. Patient says that nothing is helping I have ordered x-ray of her lumbar spine I have sent Percocet tablets that she may take at night to sleep Referral placed for her to be evaluated for [place] [facility] Medical History Parkinson's disease Surgical History History of bunionectomy Family History Mother Ovarian cancer Sister Acute kidney failure Other Mental health disorder Social History Housing: Apartment Alcohol intake: current Alcohol intake frequency: a few times a month Patient Tobacco Use Status: Current someday Tobacco user Tobacco use type: Cigarette Cigarettes Per Day: 2 Years Smoked: 6 years Packs per year/per ci.00 e-Cigarette/Vaping Use: Never Used Substance Use Type: Marijuana service: No Current occupational status: employed Current occupation: right handed Cognitive needs: No Hearing needs: No Vision needs: Yes Female Reproductive History Menstrual Age of Menarche: 14 Questionnaire Thrive Questionnaire Date Thrive assessed: 02/16/24 AUDIT C Alcohol Use Questionnaire (AUDIT-C) 1. How often do you have a drink containing alcohol?: 2-3 times a week 2. How many drinks containing alcohol do you have on a typical day when you are drinking?: 1 or 2 3. How often do you have six or more drinks on one occasion?: Never Total Score: 3 Score Reviewed/Action Taken: Yes STACI-7 AMB Questionnaire STACI-7 Date STACI - 7 assessed: 02/16/24 Source: Developed by Drs. Bakari Bhakta, Alley Adair, Issac Peoples and colleagues, with an educational lewis from [employer]. Review of Systems Const Denies chills and Denies fever(s) ENT Denies epistaxis and Denies nasal discharge Card Denies chest pain Resp Denies chest congestion, Denies cough and Denies hemoptysis GI Denies diarrhea and Denies nausea Skin/Breast Denies rash Neuro Reports no additional complaints Psych Reports no additional complaints Endo Reports no additional complaints Physical exam (Primary Care) Tobacco/Smoking Status: Tobacco use Status Tobacco use date assessed 03/02/24 03/02/24 09:06 Patient Tobacco Use Status Current someday Tobacco 03/02/24 09:06 Tobacco use type Cigarette 03/02/24 09:06 e-Cigarette/Vaping Use Never Used 03/02/24 09:06 Thrive Assessment: Date of Thrive Assessment Date Thrive assessed 02/16/24 03/02/24 09:06 Telehealth Telehealth Telehealth Platform: [facility] Location of provider rendering services: practice address Location of patient: address on file Patient Identification confirmed using: Name, : Yes Telehealth method: voice only Patient verbally consented to treatment: Yes Patient verbally consented to billing insurance company: Yes Patient informed of any privacy concerns related to visit: Yes Assessment and Plan Assessment & Plan (1) Lumbar paraspinal muscle spasm: Code(s): M62.830 - Muscle spasm of back (2) Acute lumbar back pain: Code(s): M54.50 - Low back pain, unspecified Qualifiers: Back pain laterality: bilateral Sciatica laterality: sciatica of right side Sciatica presence: with sciatica Qualified Code(s): M54.41 - Lumbago with sciatica, right side (3) Right lumbar radiculitis: Code(s): M54.16 - Radiculopathy, lumbar region Plan Patient continued to have lower back pain it is now radiating to right leg with tingling sensation She was given script for Lidoderm patches which are not helping, and muscle relaxer along with NSAIDs. Patient says that nothing is helping I have ordered x-ray of her lumbar spine I have sent Percocet tablets that she may take at night to sleep Referral placed for her to be evaluated for [place] [facility] total time spent 20 min, including patient interaction and coordination of care Orders: Orders XR lumbar spine 2-3V Today M54.16 - Radiculopathy, lumbar region, M54.41 - Lumbago with sciatica, right side, M62.830 - Muscle spasm of back Referrals Pain Management Referral M54.16 - Radiculopathy, lumbar region, M54.41 - Lumbago with sciatica, right side, M62.830 - Muscle spasm of back Medications: New oxycodone-acetaminophen 5-325 mg (Percocet) Partial Fill upon patient request. 1 tab PO Q8H PRN 20 tabs 0RF pain 7 days Coding Level of Care Code Tele Est Pt Level 4 (82256) Diagnoses Lumbar paraspinal muscle spasm M62.830 Acute bilateral low back pain with right-sided sciatica M54.41 Back pain laterality: bilateral Sciatica laterality: sciatica of right side Sciatica presence: with sciatica Right lumbar radiculitis M54.16
== END 2024-03-02 11:29 | disposition home or self-care (01) ==
LOC: HO.HMGC 08:50
PROVIDERS: PCP Internal Medicine; Visit Provider Internal Medicine
DX: M62.830 Muscle spasm of back (principal); M54.41 Lumbago with sciatica, right side; M54.16 Radiculopathy, lumbar region
CPT/HCPCS: 99214

== ENCOUNTER 2024-03-15 09:35 | Outpatient (REF) | payer OTHER, SELFPAY ==
--- NOTE | ~2024-03-15 | XR_ITS ---
EXAMINATION: XR LUMBOSACRAL SPINE CLINICAL INFORMATION: Muscle spasm of back. COMPARISON: None available. TECHNIQUE: 3 views of the lumbosacral spine. FINDINGS: Mild dextroscoliosis of the lumbar spine. Straightening of the normal lumbar lordosis. Facet arthritis in the lower lumbar spine. Mild spondylosis in the [id number] lumbar spine with mild loss of disc space height at L5-S1. XR/XR lumbar spine 2-3V IMPRESSION: 1. Mild dextroscoliosis of the lumbar spine. 2. Facet arthritis in the lower lumbar spine. 3. Mild spondylosis in the [id number] lumbar spine with mild loss of disc space height at L5-S1.
== END 2024-03-15 09:36 | disposition home or self-care (01) ==
LOC: HO.HMGCX 09:35
PROVIDERS: PCP Internal Medicine; Visit Provider Internal Medicine
DX: M62.830 Muscle spasm of back (principal); M54.41 Lumbago with sciatica, right side; M54.16 Radiculopathy, lumbar region
CPT/HCPCS: 72100

== ENCOUNTER 2024-04-13 10:13 | Outpatient (AMB) | payer OTHER, SELFPAY ==
--- NOTE | 2024-04-13 10:42 | MHC.OFFWIV ---
Intake Vital Signs 04/13/24 10:43 Height 5 ft 7 in Weight 179 lb BMI 28.0 BP 120/82 Blood Pressure Location Lt brachial Position Sitting Pulse 72 Pulse Source Pulse Oximeter Temp 98.4 F Temp Source Oral Pulse Oximetry (%) 98 Oxygen Delivery Method Room Air Intake Visit Reasons: EP RT leg pain for 2 weeks Intake Note: pt c/o RT leg pain x 2 weeks Patient Tobacco Use Status: Current someday Tobacco user Allergies No Known Allergies Allergy (Verified 04/13/24 10:43) Do you need a note to return to daycare/school/sports/work: No HPI EP RT leg pain for 2 weeks HPI Details This note is constructed using voice recognition software. While every effort has been made to ensure accuracy, ingot supervisor errors may have been included. The patient is a 48 year old female who presents to the clinic today with right leg pain for the last 2 weeks. She notes that she is currently being treated for ligament strain in her left ankle and is wearing an Aircast. She is currently in physical therapy multiple times per week for her treatment plan. She reports that approximately 2 weeks ago she started noticing pain in her right knee, with initially some limping, however that has improved since. She has not tried anything to make it better. She notes that she is able to move in all directions, but reports that her ability to squat is slightly reduced from normal. She denies numbness tingling. [facility]LY [facility] Medical History Parkinson's disease Surgical History History of bunionectomy Family History Mother Ovarian cancer Sister Acute kidney failure Other Mental health disorder Social History Housing: Apartment Alcohol intake: current Alcohol intake frequency: a few times a month Patient Tobacco Use Status: Current someday Tobacco user Tobacco use type: Cigarette Cigarettes Per Day: 2 Years Smoked: 6 years e-Cigarette/Vaping Use: Never Used Substance Use Type: Marijuana service: No Current occupational status: employed Current occupation: right handed Cognitive needs: No Hearing needs: No Vision needs: Yes Female Reproductive History Menstrual Age of Menarche: 14 Review of Systems Const All systems reviewed & are unremarkable except as noted in HPI and below Physical Exam Vital Signs: Last Vital Signs Temp 98.4 F 04/13/24 10:43 Pulse 72 04/13/24 10:43 BP 120/82 04/13/24 10:43 Pulse Ox 98 04/13/24 10:43 Oxygen Delivery Method Room Air 04/13/24 10:43 BMI result Body Mass Index 28.0 Const General: cooperative, healthy appearing, comfortable, no acute distress and alert Orientation/consciousness: patient oriented x3 Limitations: no limitations Neck Neck: Yes normal visual inspection, Yes full ROM and Yes no lymphadenopathy Resp Effort & Inspection: normal respiratory effort and able to speak in complete sentences Auscultation: clear to auscultation bilaterally Cardio Jugular venous distension: no JVD Palpation: normal PMI Rate: regular rate Heart sounds: S1 normal heart sound present, S2 normal heart sound present, no click, no gallops, no murmurs and no rubs Skin General skin exam: no rashes or lesions noted, elasticity normal and turgor normal Neuro General: patient oriented x3 Extrem Other: Full range of motion, distal neurovascular exam intact. No areas tender to palpation, no erythema, warmth, ecchymosis. General: Yes normal to inspection, Yes full ROM, Yes capillary refill normal and Yes normal exam except as noted Psych Appearance: grossly normal Mental Status: mental status grossly normal Speech and movement: Normal speech and movement present Affect: normal affect Assessment & Plan Assessment & Plan (1) Right knee pain: Code(s): M25.561 - Pain in right knee Qualifiers: Chronicity: acute Qualified Code(s): M25.561 - Pain in right knee Plan: Appears to be strain of knee, that is resolving. Advised rest, ice, heat, elevation. Eran wrap offered and accepted, patient declined to have it placed at this time and instead plans to put the on at home after she has changed her clothes. Reassuring physical examination, discussed consideration of x-ray with ongoing symptoms, advised follow up with primary care provider with worsening or failure to resolve. Plan See above for full details and plan. Coding Level of Care Code Est Pt Level 3 (68614) Diagnoses Acute pain of right knee M25.561 Chronicity: acute
[2024-04-13 10:43] VITALS: BP 120/82; PULSE 72; TEMP 36.9; O2SAT 98; BMI 28.0
== END 2024-04-13 11:30 | disposition home or self-care (01) ==
PROVIDERS: PCP Internal Medicine; Visit Provider Registered Nurse
DX: M25.561 Pain in right knee (principal)
CPT/HCPCS: 99213

== ENCOUNTER 2024-05-03 08:29 | Outpatient (AMB) | payer MEDICAID, SELFPAY ==
--- NOTE | 2024-05-03 08:36 | MHC.OFFWIV ---
Intake Vital Signs 05/03/24 08:41 Height 5 ft 7 in Weight 181 lb BMI 28.3 BP 118/76 Blood Pressure Location Rt brachial Position Sitting Pulse 78 Pulse Source Pulse Oximeter Pulse Oximetry (%) 98 Oxygen Delivery Method Room Air Intake Visit Reasons: EP- RT knee has lump on it, pain while bending Intake Note: Patient here for right knee lump that has been present for a few weeks. she states she has been coming home from work with foot and ankle are swollen. Patient Tobacco Use Status: Current someday Tobacco user Allergies No Known Allergies Allergy (Verified 05/03/24 08:42) Do you need a note to return to daycare/school/sports/work: No HPI HPI Comments History of Present Illness Details Patient is a 48-year-old female complaining of right knee pain. She states she was seen at this clinic a few weeks ago and was given an Eran wrap which she has been using intermittently with no relief. 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 She states the pain is worse when she bends her knee. She was also taking ibuprofen 600 mg every 8 hours but this did not seem to help either. [facility] Medical History Parkinson's disease Surgical History History of bunionectomy Family History Mother Ovarian cancer Sister Acute kidney failure Other Mental health disorder Social History Housing: Apartment Alcohol intake: current Alcohol intake frequency: a few times a month Patient Tobacco Use Status: Current someday Tobacco user Tobacco use type: Cigarette Cigarettes Per Day: 2 Years Smoked: 6 years e-Cigarette/Vaping Use: Never Used Substance Use Type: Marijuana service: No Current occupational status: employed Current occupation: right handed Cognitive needs: No Hearing needs: No Vision needs: Yes Female Reproductive History Menstrual Age of Menarche: 14 Review of Systems Const All systems reviewed & are unremarkable except as noted in HPI and below Physical Exam Vital Signs: Last Vital Signs Pulse 78 05/03/24 08:41 BP 118/76 05/03/24 08:41 Pulse Ox 98 05/03/24 08:41 Oxygen Delivery Method Room Air 05/03/24 08:41 BMI result Body Mass Index 28.3 Const General: cooperative, healthy appearing, comfortable, no acute distress and well developed Orientation/consciousness: patient oriented x3 Limitations: no limitations HEENT Head: Yes normal to inspection Ears: hearing grossly normal bilaterally General nose exam: Normal external nose present Face and sinus: Yes normal facial exam Eyes General: appearance normal, both eyes and all related structures Neck Neck: Yes normal visual inspection and Yes full ROM Resp Effort & Inspection: normal respiratory effort and able to speak in complete sentences Skin General skin exam: no rashes or lesions noted Neuro General: patient oriented x3 Extrem General: Yes normal to inspection Right lower extremity: knee Details: normal to inspection, tenderness Location: of the infrapatellar area (Lateral), swelling (Ladder) Location: of the infrapatellar area, normal ROM (with pain) and knee ligament exam normal; no abrasions, no lacerations, no ecchymosis, no deformity and no unusual warmth Assessment & Plan Assessment & Plan (1) Bursitis, knee: Code(s): M70.50 - Other bursitis of knee, unspecified knee Qualifiers: Knee bursitis location: infrapatellar bursitis Laterality: right Qualified Code(s): M70.51 - Other bursitis of knee, right knee Plan: Recommended she use the Eran wrap she has to wrap the knee and rest it, overall a work note for the next 3 days. Also recommended she use ice as often as possible as well as Aleve around the clock for the next 3-4 days. Also recommended Voltaren gel. She should follow up with her PCP in the next week or 2 if she does not have any relief of symptoms Plan see above Coding Level of Care Code Est Pt Level 3 (82728) Diagnoses Infrapatellar bursitis of right knee M70.51 Knee bursitis location: infrapatellar bursitis Laterality: right
[2024-05-03 08:41] VITALS: BP 118/76; PULSE 78; O2SAT 98; BMI 28.3
== END 2024-05-03 09:04 | disposition home or self-care (01) ==
PROVIDERS: PCP Internal Medicine; Visit Provider Physician Assistant
DX: M70.51 Other bursitis of knee, right knee (principal)
CPT/HCPCS: 99213

== ENCOUNTER 2024-05-22 08:57 | Outpatient (AMB) | payer MEDICAID, SELFPAY ==
--- NOTE | 2024-05-22 09:21 | AM.OFFWIN_ITS ---
Intake Vital Signs 05/22/24 09:22 Height 5 ft 7 in Weight 190 lb BMI 29.8 BP 115/80 Blood Pressure Location Rt brachial Position Sitting Pulse 72 Pulse Source Pulse Oximeter Pulse Oximetry (%) 98 Oxygen Delivery Method Room Air Intake Visit Reasons: EP-rt knee lump Intake Note: Patient here for lump on right knee that has been present for about 1 month and it very painful and having a hard time walking. Patient Tobacco Use Status: Current someday Tobacco user Allergies No Known Allergies Allergy (Verified 05/22/24 09:24) Do you need a note to return to daycare/school/sports/work: No HPI EP-rt knee lump HPI Details This note is constructed using voice recognition software. While every effort has been made to ensure accuracy, family and consumer education teacher errors may have been included. The patient is a 48 year old female who presents to the clinic today with right knee pain for over 1 month. She has been seen in clinic twice for the same, and requests xrays, which had previously been declined. She reports initially she was doing something and remembers feeling a pop sensation in the lateral aspect of her right knee, followed by some pain and some swelling in the region. The pain has improved overall and is partially better when she uses an Eran wrap or NSAIDs. Given that the pain does come back has not completely resolve, she called her primary care to obtain a follow up appointment, and was provided 1 for June 07. She return to walk-in clinic due to the timeline from now until the available appointment. She denies redness, warmth to the area. [facility] Medical History Parkinson's disease Surgical History History of bunionectomy Family History Mother Ovarian cancer Sister Acute kidney failure Other Mental health disorder Social History Housing: Apartment Alcohol intake: current Alcohol intake frequency: a few times a month Patient Tobacco Use Status: Current someday Tobacco user Tobacco use type: Cigarette Cigarettes Per Day: 2 Years Smoked: 6 years e-Cigarette/Vaping Use: Never Used Substance Use Type: Marijuana service: No Current occupational status: employed Current occupation: right handed Cognitive needs: No Hearing needs: No Vision needs: Yes Female Reproductive History Menstrual Age of Menarche: 14 Review of Systems Const All systems reviewed & are unremarkable except as noted in HPI and below Physical Exam Vital Signs: Last Vital Signs Pulse 72 05/22/24 09:22 BP 115/80 05/22/24 09:22 Pulse Ox 98 05/22/24 09:22 Oxygen Delivery Method Room Air 05/22/24 09:22 BMI result Body Mass Index 29.8 Const General: cooperative, healthy appearing, comfortable, no acute distress and alert Orientation/consciousness: patient oriented x3 Limitations: no limitations Resp Effort & Inspection: normal respiratory effort and able to speak in complete sentences Auscultation: clear to auscultation bilaterally Cardio Jugular venous distension: no JVD Palpation: normal PMI Rate: regular rate Heart sounds: S1 normal heart sound present, S2 normal heart sound present, no click, no gallops, no murmurs and no rubs Skin General skin exam: no rashes or lesions noted, elasticity normal and turgor normal Neuro General: patient oriented x3 Extrem Other: Right knee lateral joint line tenderness on valgus maneuver, with visible swelling to the area. No erythema, no warmth. Full range of motion. Distal neurovascular exam intact. General: Yes normal to inspection, Yes full ROM, Yes capillary refill normal and Yes normal exam except as noted Psych Appearance: grossly normal Mental Status: mental status grossly normal Speech and movement: Normal speech and movement present Affect: normal affect Assessment & Plan Assessment & Plan (1) Right knee pain: Code(s): M25.561 - Pain in right knee Qualifiers: Chronicity: unspecified Qualified Code(s): M25.561 - Pain in right knee Plan: Given the timeline since onset of symptoms, referral placed to Orthopedics for evaluation and treatment plan. X-ray ordered today in the event that she may need additional imaging in the future. Advised use of Eran wrap, NSAIDs, rest, ice, elevation for symptomatic management. Plan See above for full details and plan. Orders: Orders XR knee RT 2V Today M25.561 - Pain in right knee Referrals Orthopedics Referral M25.561 - Pain in right knee Coding Level of Care Code Est Pt Level 4 (37299) Diagnoses Right knee pain, unspecified chronicity M25.561 Chronicity: unspecified
[2024-05-22 09:22] VITALS: BP 115/80; PULSE 72; O2SAT 98; BMI 29.8
== END 2024-05-22 10:20 | disposition home or self-care (01) ==
PROVIDERS: PCP Internal Medicine; Visit Provider Registered Nurse
DX: M25.561 Pain in right knee (principal)

== ENCOUNTER → 2024-05-22 08:57 | Outpatient (BNVA) | payer MEDICAID, SELFPAY | PROVIDERS: PCP Internal Medicine; Visit Provider Internal Medicine ==

== ENCOUNTER 2024-05-22 10:16 | Outpatient (REF) | payer OTHER, SELFPAY ==
--- NOTE | ~2024-05-22 | XR_ITS ---
EXAMINATION: XR KNEE, RIGHT CLINICAL INFORMATION: Pain in right knee. COMPARISON: None available. TECHNIQUE: Four views of the right knee. FINDINGS: No fracture or joint effusion. Alignment is anatomic. Joint spaces are maintained. No abnormal soft tissue calcification. XR/XR knee RT 4V IMPRESSION: No acute fracture or dislocation. Electronically signed by: Claudia Rios MD 05/22/2024 11:25 AM EDT
== END 2024-05-22 10:17 | disposition home or self-care (01) ==
LOC: HO.HMGCX 10:16
PROVIDERS: PCP Internal Medicine; Visit Provider Registered Nurse
DX: M25.561 Pain in right knee (principal)
CPT/HCPCS: 73564; 99212

== ENCOUNTER 2024-06-07 09:39 | Outpatient (AMB) | payer OTHER, SELFPAY ==
[2024-06-07 09:41] VITALS: BP 122/80; PULSE 67; O2SAT 93; BMI 28.1
--- NOTE | 2024-06-07 09:41 | MHC.PC.OV ---
Vital Signs 06/07/24 09:41 Height 5 ft 7 in Weight 179 lb 8 oz BMI 28.1 BP 122/80 Blood Pressure Location Rt brachial Position Sitting Pulse 67 Pulse Source Pulse Oximeter Pulse Oximetry (%) 93 Oxygen Delivery Method Room Air Intake Visit Reasons: Knee Issues ,Lump , hurt/cannot bend right knee Allergies No Known Allergies Allergy (Verified 06/07/24 09:48) Medication List - Last Reconciled 06/07/24 by Andrew Mcguire MD carbidopa-levodopa 25-100 mg 1 tab PO TID 30 days lidocaine 5% 1 patch topical DAILY 30 days melatonin 3 - 6 mg (1 - 2 x 3 mg) PO DAILY PRN 30 days Tobacco use date assessed: 06/07/24 Dental Screening Dental Screen Date: 06/07/24 Did you have a dental visit in the last 12 months?: Yes Did you have a dental problem in the last 6 months where you did not have access to dental care?: No Was dental information given to patient?: Patient has dentist HPI Knee Issues ,Lump , hurt/cannot bend right knee HPI Details Patient is a 48-year-old female with a history of Parkinson's disease, seeing neurologist, came in today to be evaluated for right knee pain Which has been happening for the past 1 month Patient says that there is a lump around her knee that is bothering her On examination I see that she has a lipoma [id number] size of ibrahim nontender soft And similar swelling lateral aspect of knee just below patella which is also nontender Her knee has full range of motion slightly sore with full extension There is no calf tenderness She already have a referral to Orthopedic, I provided her with a number so she can call in book her own appointment For now I have reassured her I would recommend to start physical therapy while she wait for orthopedic appointment. [facility] Medical History Parkinson's disease Surgical History History of bunionectomy Family History Mother Ovarian cancer Sister Acute kidney failure Other Mental health disorder Social History Housing: Apartment Alcohol intake: current Alcohol intake frequency: a few times a month Patient Tobacco Use Status: Current someday Tobacco user Tobacco use type: Cigarette Cigarettes Per Day: 2 Years Smoked: 6 years e-Cigarette/Vaping Use: Never Used Substance Use Type: Marijuana service: No Current occupational status: employed Current occupation: right handed Cognitive needs: No Hearing needs: No Vision needs: Yes Female Reproductive History Menstrual Age of Menarche: 14 Questionnaire PHQ-9 Over the last 2 weeks, how often have you been bothered by any of the following problems? 1. Little interest or pleasure in doing things: several days 2. Feeling down, depressed, or hopeless: several days 3. Trouble falling or staying asleep, or sleeping too much: several days 4. Feeling tired or having little energy: not at all 5. Poor appetite or overeating: several days 6. Feeling bad about yourself - or that you are a failure or have let yourself or your family down: not at all 7. Trouble concentrating on things, such as reading the newspaper or watching television: not at all 8. Moving or speaking so slowly that other people could have noticed. Or the opposite - being so fidgety or restless that you have been moving around a lot more than usual: several days 9. Thoughts that you would be better off or of hurting yourself in some way: not at all Total score: 5 Depression Screening Interpretation: Negative Depression Screening Done: Yes 62333 - PHQ-9 Billing: Yes Source: Developed by Drs. Bakari Bhakta, Alley Adair, Issac Peoples and colleagues, with an educational lewis from [employer]. Thrive Questionnaire Date Thrive assessed: 06/07/24 I am a: Patient What is your living situation today?: I have a steady place to live Within the past 12 months, did the food you bought not last and you didn't have the money to get more?: Often true Within the past 12 months, did you worry whether your food would run out before you got money to buy more?: Never true Do you have trouble paying for medicines?: No Do you have trouble getting transportation to medical appointments?: No Do you have trouble paying your heating and electricity bill?: Yes Do you have trouble taking care of your child, family member or friend?: No Do you have trouble with day-to-day activities such as bathing, preparing meals, shopping, managing finances, etc.?: Yes Are you currently unemployed and looking for a job?: No Are you interested in more education?: No Please select the resources that you would like help with: None Currently or been in a relationship where the following occur: I choose not to answer THRIVE Score: 2 AUDIT C Alcohol Use Questionnaire (AUDIT-C) 1. How often do you have a drink containing alcohol?: 2-3 times a week 2. How many drinks containing alcohol do you have on a typical day when you are drinking?: 3 or 4 3. How often do you have six or more drinks on one occasion?: Weekly Total Score: 7 Score Reviewed/Action Taken: Yes STACI-7 AMB Questionnaire STACI-7 Date STACI - 7 assessed: 06/07/24 Feeling nervous, anxious, or on edge: 1 = Several days Not being able to stop or control worryin = Several days Worrying too much about different things: 1 = Several days Trouble relaxin = Several days Being so restless that it is hard to sit still: 0 = Not at all Becoming easily annoyed or irritable: 0 = Not at all Feeling afraid as if something awful might happen: 0 = Not at all Total STACI-7 score (0-4 normal; 5-9 mild; 10-14 moderate; 15-21 severe): 4 Source: Developed by Drs. Bakari Bhakta, Alley Adair, Issac Peoples and colleagues, with an educational lewis from [employer]. STACI-7 Assessment Billing STACI-7 Assessment Tool: STACI-7 Assessment 08469 Review of Systems Const All systems reviewed & are unremarkable except as noted in HPI and below Physical exam (Primary Care) Vital Signs: Last Vital Signs Pulse 67 06/07/24 09:41 BP 122/80 06/07/24 09:41 Pulse Ox 93 06/07/24 09:41 Oxygen Delivery Method Room Air 06/07/24 09:41 BMI result Body Mass Index 28.1 Tobacco/Smoking Status: Tobacco use Status Tobacco use date assessed 06/07/24 06/07/24 09:49 Patient Tobacco Use Status Current someday Tobacco 06/07/24 09:49 Tobacco use type Cigarette 06/07/24 09:49 e-Cigarette/Vaping Use Never Used 06/07/24 09:49 PHQ-9: PHQ-9 Score PHQ-9: Total score 5 06/07/24 09:49 Depression Screening Interpretation: Negative Thrive Assessment: Date of Thrive Assessment Date Thrive assessed 06/07/24 06/07/24 09:49 Currently or been in a relationship where the following occur: I choose not to answer Const General: no acute distress Orientation/consciousness: patient oriented x3 Eyes General: appearance normal, both eyes and all related structures Resp Effort & Inspection: normal respiratory effort and able to speak in complete sentences Auscultation: clear to auscultation bilaterally Neuro General: patient oriented x3 Extrem Upper/lower leg/hip images: 1. Soft nontender swelling lateral aspect of knee below patella, range of motion intact, slight soreness with full extension 2. Similar swelling on the leg, consistent with lipoma Psych Mental Status: mental status grossly normal Coding Level of Care Code Est Pt Level 3 (92265) Diagnoses Acute pain of right knee M25.561 Chronicity: acute Lipoma of right lower extremity D17.23 Lipoma location: lower extremity Laterality: right Additional Codes STACI-7 Assessment Billing - STACI-7 Assessment Tool: STACI-7 Assessment 56511 ([id number]) Assessment & Plan Assessment & Plan (1) Knee pain, right: Code(s): M25.561 - Pain in right knee Category: Medical Qualifiers: Chronicity: acute Qualified Code(s): M25.561 - Pain in right knee (2) Lipoma: Code(s): D17.9 - Benign lipomatous neoplasm, unspecified Category: Medical Qualifiers: Lipoma location: lower extremity Laterality: right Qualified Code(s): D17.23 - Benign lipomatous neoplasm of skin and subcutaneous tissue of right leg Plan Patient is a 48-year-old female with a history of Parkinson's disease, seeing neurologist, came in today to be evaluated for right knee pain Which has been happening for the past 1 month Patient says that there is a lump around her knee that is bothering her On examination I see that she has a lipoma [id number] size of ibrahim nontender soft And similar swelling lateral aspect of knee just below patella which is also nontender Her knee has full range of motion slightly sore with full extension There is no calf tenderness She already have a referral to Orthopedic, I provided her with a number so she can call in book her own appointment For now I have reassured her I would recommend to start physical therapy while she wait for orthopedic appointment. Orders: Orders PT Evaluation and Treatment Today M25.561 - Pain in right knee
== END 2024-06-07 10:05 | disposition home or self-care (01) ==
PROVIDERS: PCP Internal Medicine; Visit Provider Internal Medicine
DX: M25.561 Pain in right knee (principal); D17.23 Benign lipomatous neoplasm of skin and subcutaneous tissue of right leg

== ENCOUNTER → 2024-06-07 09:39 | Outpatient (BNVA) | payer OTHER, SELFPAY | PROVIDERS: PCP Internal Medicine; Visit Provider Internal Medicine | DX: M25.561 Pain in right knee (principal); D17.9 Benign lipomatous neoplasm, unspecified | CPT/HCPCS: 96127; 99212 ==

== ENCOUNTER 2024-06-08 09:11 | Outpatient (AMB) | payer OTHER, SELFPAY ==
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
[2024-06-08 09:21] VITALS: BP 118/80; BMI 28.2
== END 2024-06-08 10:38 | disposition home or self-care (01) ==
PROVIDERS: PCP Internal Medicine; Visit Provider Nurse Practitioner Family
DX: G20.A1 Parkinson's disease without dyskinesia, without mention of fluctuations (principal); R26.9 Unspecified abnormalities of gait and mobility; R29.898 Other symptoms and signs involving the musculoskeletal system
CPT/HCPCS: 99214; G2211

== ENCOUNTER → 2024-06-08 09:11 | Outpatient (BNVA) | payer OTHER, SELFPAY | PROVIDERS: PCP Internal Medicine; Visit Provider Nurse Practitioner Family | DX: G20.A1 Parkinson's disease without dyskinesia, without mention of fluctuations (principal); R26.9 Unspecified abnormalities of gait and mobility; R29.898 Other symptoms and signs involving the musculoskeletal system; R25.8 Other abnormal involuntary movements | CPT/HCPCS: 99212 ==

== ENCOUNTER 2024-07-03 03:49 | Emergency (ER) | payer OTHER, SELFPAY ==
[2024-07-03 04:02] VITALS: BP 125/92; PULSE 96; RESP 16; TEMP 36.6; O2SAT 98; BMI 28.2
--- NOTE | 2024-07-03 04:13 | ED_ITS ---
HPI - Back Pain/Injury General Chief Complaint: Back Pain/Injury Stated Complaint: lower back pain Time Seen by Provider: 07/03/24 04:05 Source: patient and old records reviewed Mode of arrival: ambulatory Limitations: no limitations History of Present Illness ED Provider: DILLON MARIE Narrative: 48 yo female with PMH of lumbar back pain, parkinsons disease, falls, tremors, here with c/o back pain and spasm since Wednesday without trauma or known injury. Not responding to NSAIDs or leftover muscle relaxers. Tried lidocaine pain patch but it still hurts. No recent falls, fevers. Has no b/b incontinence or saddle anesthesia. Not on thinners. Has had back pain before. She notes it moves to the hips and lower abdominal area but no abdominal ttp and no n/v/d or urinary symptoms. MD elicited complaint: back pain Pertinent past history: prior back pain Onset (ago): day(s) (2) Timing: constant Severity: severe Similar Symptoms Previously: Yes Quality: spasming and throbbing Location: lumbar spine Radiation: abdomen Exacerbating factors: movement and walking Context: unknown Associated symptoms: denies other symptoms Treatments prior to arrival: NSAIDS and other medications Work related injury: No Related Data Previous Rx's ?Medication ?Instructions ?Recorded melatonin 3 mg tablet 3 - 6 mg (1 - 2 x 3 mg) PO DAILY 10/07/23 PRN sleep 30 days #60 tabs lidocaine 5 % topical patch 1 patch topical DAILY 30 days #30 05/24/24 ea carbidopa 25 mg-levodopa 100 mg 1.5 tab PO TID 30 days #135 tabs 06/08/24 tablet morphine 15 mg immediate release 15 mg PO Q6H PRN pain #10 tabs 07/03/24 tablet Allergies Allergy/AdvReac Type Severity Reaction Status Date / Time No Known Allergies Allergy Verified 07/03/24 04:07 Review of Systems Review of Systems: Constitutional : No Weight loss, No Fever, No Chills, ENT/Mouth : No Hearing loss, No Ear Pain, No Nasal Congestion, No Sinus Pain, No Hoarseness, No sore throat, No Rhinorrhea, No Swallowing Difficulty Cardiovascular : No Chest Pain, No SOB Respiratory : No Cough, No Dyspnea Gastrointestinal : No Nausea, No Vomiting, No Diarrhea, No abdominal Pain, No Hematochezia, No Melena Genitourinary : No Dysuria, No Urinary Frequency, No Hematuria, No Urinary Incontinence, Musculoskeletal : positive back pain Skin : No Skin Lesions, No rash Neuro : No Weakness, No Numbness, No Paresthesias, no loss of bowel or bladder incontinence, no saddle anesthesia All other systems reviewed and are negative [facility] Past Medical History Attestation statement: The following information was validated with the patient. Source: old records reviewed Medical History Parkinson's disease Surgical History History of bunionectomy Family History Family History Mother Ovarian cancer Sister Acute kidney failure Other Mental health disorder Social History Social History Housing: Apartment Alcohol intake: current Alcohol intake frequency: does not drink Patient Tobacco Use Status: Current someday Tobacco user Tobacco use type: Cigarette Cigarettes Per Day: 2 Years Smoked: 6 years Smoked in Last 30 Days: No e-Cigarette/Vaping Use: Never Used Use of substances other than those prescribed or required for medical reasons: No Substance Use Type: Marijuana Advance Directives: No Advance Directives Information Provided: Yes Do you have a plan to hurt others: No Plan Patient : No service: No Current occupational status: employed Current occupation: right handed Cognitive needs: No Hearing needs: No Vision needs: Yes Physical Exam Vital Signs: Vital Signs: Last Vital Signs Temp 97.9 F 07/03/24 04:02 Pulse 96 07/03/24 04:02 Resp 16 07/03/24 04:02 BP 125/92 H 07/03/24 04:02 Pulse Ox 98 07/03/24 04:02 O2 Del Method Room Air 07/03/24 04:02 BMI result Body Mass Index 28.2 Appearance: Alert. Oriented X3. No acute distress. Eyes: Pupils equal, round and reactive to light. ENT: Pharynx normal. Neck: Normal inspection. Neck supple. CVS: Normal heart rate and rhythm. Pulses normal. Respiratory: No respiratory distress. Breath sounds normal. Abdomen: Soft and nontender. Skin: Skin warm and dry. Normal skin color. Normal skin turgor. Extremities: No lower extremity edema. No calf ttp Neuro: Oriented X 3. No motor deficit. No sensory deficit. SILT inner thight, strenght intact LE, can lift legs with pain on her own onto the bed Medications Administered Discontinued Medications Generic Name Dose Route Start Last Admin Trade Name Maico PRN Reason Stop Dose Admin Hydrocodone Bitart/Acetaminophen 1 tab 07/03/24 04:21 07/03/24 04:26 Hydrocodone Bit/Acetam 5/325 Tablet PO 07/03/24 04:22 1 tab ONCE ONE Administration Diazepam 2 mg 07/03/24 04:21 07/03/24 04:26 Diazepam 2 Mg Tablet PO 07/03/24 04:22 2 mg ONCE ONE Administration Ondansetron HCl 4 mg 07/03/24 04:21 07/03/24 04:26 Ondansetron Odt 4 Mg Tab.Rapdis TRANSLINGU 07/03/24 04:22 4 mg ONCE ONE Administration Medical Decision Making Medical Decision Making MDM Narrative: 48 yo female with PMH of lumbar back pain, parkinsons disease, falls, tremors, here with c/o low back pain but no b/b incontinence no saddle anesthesia and benign abdominal exam at this time she is NV intact will start on pain control and reassess. No red flags, no trauma will hold off imaging Differential Diagnosis Differential Diagnoses: The differential diagnosis associated with the presentation includes spasm, MSK strain Admission/Observation Consideration of admission/observation: Escalation of care including admission/observation considered feels better stable for DC Lab Data Labs: Lab Results 07/03/24 Range/Units 04:15 Urine Color Dark Yellow Urine Appearance Cloudy Urine pH 5.5 (5.0-9.0) Ur Specific [place] >= 1.030 H (1.005-1.025) Urine Protein 30 (1+) H (Neg-Trace) mg/dL Urine Glucose (UA) Negative (Negative) mg/dL Urine Ketones Trace (Negative) mg/dL Urine Blood Negative (Negative) Urine Nitrite Negative (Negative) Ur Leukocyte Esterase Negative (Negative) Urine RBC 0-2 (0-2) /HPF Urine WBC 6-10 H (0-5) /HPF Ur Squamous Epith Cells >20 (0-2) /HPF Urine Bacteria 4+ (None Seen) Hyaline Casts 6-10 (0-2) /LPF External Record Review External record reviewed: Office record Prescription Management I considered prescription management with: Pain Medication and Other Discharge Plan Discharge Clinical Impression: Acute lumbar back pain Qualifiers: Back pain laterality: bilateral Sciatica presence: without sciatica Qualified Code(s): M54.50 - Low back pain, unspecified Patient Disposition: Home, Self-Care Instructions: Acute Low Back Pain (ED) Additional Instructions: return for worsening pain, fevers, loss of control of bowel or bladder, numbness, weakness or any other concerns. follow up with your doctor Prescriptions: New morphine 15 mg tablet 15 mg PO Q6H PRN (Reason: pain) Qty: 10 0RF Rx Instructions: Partial Fill upon patient request. No Action lidocaine 5 % adhesive patch,medicated 1 patch topical DAILY 30 Days Qty: 30 0RF Rx Instructions: leave on most painful area for up to 12 hrs melatonin 3 mg tablet 3 - 6 mg PO DAILY PRN (Reason: sleep) 30 Days Qty: 60 3RF Rx Instructions: take daily in the evening carbidopa-levodopa 25-100 mg tablet 1.5 tab PO TID 30 Days Qty: 135 6RF Rx Instructions: take 30 minutes before breakfast, lunch, dinner Print Language: Maori
[2024-07-03 04:20] LABS: Appearance Urine Cloudy; Color Urine Dark Yellow; Glucose Urine UA Negative (Negative); Leukocyte Esterase Urine Negative (Negative); Nitrite Urine Negative (Negative); PH 5.5 (5.0-9.0); Specific Gravity - Urine >= 1.030 (1.005-1.025); UMIC TRIGGER UACC YES; Urine Blood Negative (Negative); Urine Ketones Trace mg/dL (Negative); Urine Protein 30 (1+) mg/dL (Neg-Trace)
[2024-07-03] MEDS: Ondansetron ODT 4 MG TAB.RAPDIS TRANSLINGU (04:26)
[2024-07-03] MEDS: HYDROcodone Bit/Acetam 5/325 TABLET 1 TAB PO (04:26)
[2024-07-03] MEDS: diazePAM 2 MG TABLET PO (04:26)
[2024-07-03 04:27] LABS: Bacteria Urine 4+ (None Seen); RBC Urine 0-2 /HPF (0-2); Squamous Epithelial Cell Urine >20 /HPF (0-2); UACC Culture Trigger YES
[2024-07-03 05:11] VITALS: BP 116/64; PULSE 85; RESP 12; TEMP 37.1; O2SAT 96
[2024-07-03 05:12] VITALS: BP 116/64; PULSE 85; RESP 12; TEMP 37.1; O2SAT 96
== END 2024-07-03 05:12 | disposition home or self-care (01) ==
PROVIDERS: Emergency Provider Emergency Medicine; PCP Internal Medicine
DX: M54.50 Low back pain, unspecified (principal); F17.210 Nicotine dependence, cigarettes, uncomplicated
CPT/HCPCS: 81001; 87086; 87147; 99283; 99284

== ENCOUNTER 2024-07-05 13:30 | Outpatient (AMB) | payer OTHER, SELFPAY ==
--- NOTE | 2024-07-05 13:32 | AM.OFFWIN_ITS ---
Intake Vital Signs 07/05/24 13:33 Height 5 ft 7 in Weight 180 lb BMI 28.2 BP 118/76 Blood Pressure Location Rt brachial Position Sitting Pulse 80 Pulse Source Pulse Oximeter Pulse Oximetry (%) 97 Intake Visit Reasons: EP lower back pain Intake Note: pt is here for lower back pain and abd area Patient Tobacco Use Status: Current someday Tobacco user Allergies No Known Allergies Allergy (Verified 07/05/24 13:38) Do you need a note to return to daycare/school/sports/work: No HPI HPI Comments History of Present Illness Details Patient is a 48-year-old female complaining of bilateral low back pain that radiates around the front to her abdomen. She states she has been dealing with this for awhile but felt better in between occurences. Records indicate her PCP saw her for this in February of 2024 and sent to her to [facility] spine and sports. Patient states she went to [facility] and they told her there was nothing they could do for her. She denies any changes in her bowel movement, blood in her urine, fevers or history of kidney stones. She denies any loss of control of her bladder or bowels. Patient states she has tried taking ibuprofen but it does not help. She also took the morphine that the emergency department gave her but it just makes her groggy and she does not like how it makes her feel. She does use heat and that seems to help the most. She was seen in the emergency department at [facility] 2 days ago and given morphine, a UA was negative for blood, it was thought this was musculoskeletal. [facility] Medical History Parkinson's disease Surgical History History of bunionectomy Family History Mother Ovarian cancer Sister Acute kidney failure Other Mental health disorder Social History Housing: Apartment Alcohol intake: current Alcohol intake frequency: does not drink Patient Tobacco Use Status: Current someday Tobacco user Tobacco use type: Cigarette Cigarettes Per Day: 2 Years Smoked: 6 years e-Cigarette/Vaping Use: Never Used Substance Use Type: Marijuana service: No Current occupational status: employed Current occupation: right handed Cognitive needs: No Hearing needs: No Vision needs: Yes Female Reproductive History Menstrual Age of Menarche: 14 Review of Systems Const All systems reviewed & are unremarkable except as noted in HPI and below Physical Exam Const General: cooperative, healthy appearing, comfortable, no acute distress and well developed Orientation/consciousness: patient oriented x3 Limitations: no limitations HEENT Head: Yes normal to inspection Ears: hearing grossly normal bilaterally General nose exam: Normal external nose present Face and sinus: Yes normal facial exam Eyes General: appearance normal, both eyes and all related structures Neck Neck: Yes normal visual inspection and Yes full ROM Resp Effort & Inspection: normal respiratory effort and able to speak in complete sentences Auscultation: clear to auscultation bilaterally Cardio Rate: regular rate Rhythm: regular rhythm Heart sounds: normal S1 and S2 GI Inspection: Yes normal to inspection Palpation (GI): Soft to palpation and nontender Back/Spine/Pelvis Cervical Spine: cervical ROM normal and No Cervical spine tenderness Thoracic/Lumbar Spine: straight leg raise negative bilaterally, pain with thoraco-lumbar ROM, thoraco-lumbar spasm, No thoracic spinal tenderness and No lumbar spinal tenderness Skin General skin exam: no rashes or lesions noted Neuro General: patient oriented x3 Extrem General: Yes normal to inspection Results Reviewed Results Reviewed: lumbar xray 03/2024 1. Mild dextroscoliosis of the lumbar spine. 2. Facet arthritis in the lower lumbar spine. 3. Mild spondylosis in the [id number] lumbar spine with mild loss of disc space height at L5-S1. Assessment & Plan Assessment & Plan (1) Acute lumbar back pain: Code(s): M54.50 - Low back pain, unspecified Qualifiers: Back pain laterality: bilateral Sciatica presence: with sciatica Sciatica laterality: sciatica of right side Qualified Code(s): M54.41 - Lumbago with sciatica, right side Plan: UA negative for blood, possible kidney stones but less likely with no blood in her urine. UA was also negative for blood 2 days ago in the emergency department. Patient also has no history of kidney stones. Likely musculoskeletal. As patient has tried taking a leave, we will add prednisone burst and Voltaren gel as well as a muscle relaxer. If symptoms persist, she should follow up with her PCP Plan See above Medications: New prednisone 40 mg (2 x 20 mg) PO DAILY 10 tabs 0RF cyclobenzaprine 5 mg PO Q8H PRN 15 tabs 0RF Muscle Spasm diclofenac sodium 3% 1 appl topical BID 100 grams 0RF Coding Level of Care Code Est Pt Level 4 (25289) Diagnoses Acute bilateral low back pain with right-sided sciatica M54.41 Back pain laterality: bilateral Sciatica presence: with sciatica Sciatica laterality: sciatica of right side
[2024-07-05 13:33] VITALS: BP 118/76; PULSE 80; O2SAT 97; BMI 28.2
== END 2024-07-05 14:16 | disposition home or self-care (01) ==
PROVIDERS: PCP Internal Medicine; Visit Provider Physician Assistant
DX: Z13.9 Encounter for screening, unspecified (principal); M54.41 Lumbago with sciatica, right side

== ENCOUNTER → 2024-07-05 13:30 | Outpatient (BNVA) | payer OTHER, SELFPAY | PROVIDERS: PCP Internal Medicine | DX: M54.41 Lumbago with sciatica, right side (principal) | CPT/HCPCS: 81003; 99212 ==

== ENCOUNTER 2024-07-10 08:59 | Outpatient (RCR) | payer OTHER, SELFPAY ==
--- NOTE | 2024-08-11 10:49 | MHC.PT.EP ---
[facility] [place] Office [place] Office [place] Office [address] [facility] [phone] F: [phone] F: [phone] F: [phone] F: [phone] Physical Therapy Plan of Care Date of Evaluation: 07/10/24 Date of Surgery: Diagnosis: KNEE PAIN (KP) Assessment: AT THIS TIME SUDHA INDICATES NO PAIN NOR FUNCTIONAL LIMITATIONS. ROM IS WNLS, STRENGTH IS 5/5 T/O. NO SKILLED THERAPY INDICATED AT THIS TIME. Frequency and Duration: The patient will be seen 1 VISIT Short Term Goals: Rubber Thread Spooler Goals: Treatment Plan: Modalities to reduce pain, spasms and effusion. Manual therapy to restore motion and function. Therapeutic exercise to improve strength and flexibility. Neuromuscular re-education for posture and balance. Therapeutic activities to return to functional activities of daily living. Electronically signed by: ANGEL ALFREDO PT DPT Please sign and return to therapist. Thank you for your referral.
== END 2024-08-11 10:52 | disposition home or self-care (01) ==
LOC: HO.PT 08:59
PROVIDERS: PCP Internal Medicine; Visit Provider Internal Medicine
DX: M25.561 Pain in right knee (principal)
CPT/HCPCS: 97161

== ENCOUNTER 2024-07-11 08:57 | Outpatient (REF) | payer OTHER, SELFPAY | END 2024-07-11 08:58 | disposition home or self-care (01) | LOC: HO.HOSX 08:57 | PROVIDERS: Visit Provider Physician Assistant | DX: M25.569 Pain in unspecified knee (principal); M23.91 Unspecified internal derangement of right knee | CPT/HCPCS: 73560; 73562; 99212 ==

== ENCOUNTER 2024-07-11 10:08 | Outpatient (AMB) | payer OTHER, SELFPAY ==
--- NOTE | 2024-07-11 10:29 | A.OFFVIS_ITS ---
Intake Visit Reasons: New Problem - right knee pain Intake Note: Chiquis is a 49 year old female who presents today for a evaluation of her right knee pain. Patient reports ongoing pain for about for about a month. She mentions that her pain is on the lateral aspect. She reports that she bent her knee and heard a pop, which caused her sharp pain. Patient states today she is not having any pain Patient has tried icing, compression wrap and Tylenol with relief. Allergies No Known Allergies Allergy (Verified 07/11/24 10:38) HPI HPI New Problem - right knee pain: Details: 49-year-old female who presents in the office today for an evaluation of right knee pain. The patient initially presented to the [facility] [place] on 04/13/24 with a chief complaint of right knee pain ongoing for 2 weeks. She was advised to follow RICE therapy at home and was supplied with JOHN wraps. She returned to the [facility] multiple times with the same complaint. She presented to the [facility] on 05/22/24 and mentioned she felt a pop sensation in the lateral aspect of her right knee, followed by immediate mild pain and edema in the region. She was referred to [facility] and X-rays of the right knee were obtained on that encounter. She was seen again at the [facility]- [facility] on 06/07/24. On the exam, a soft, nontender edema was noted on the lateral aspect of the right knee below the patella, consistent with lipoma. She was recommended to start physical therapy while she waits for her Orthopedic appointment. While in the office today, The patient reports right knee pain ongoing for about a month. She specifies her pain in the lateral aspect of the right knee. She heard a sudden pop while bending her right knee, causing her to experience sharp pain. Patient denies having any pain today. She has tried ice, compression wraps, and Tylenol with relief. [facility] Medical History Parkinson's disease Surgical History History of bunionectomy Family History Mother Ovarian cancer Sister Acute kidney failure Other Mental health disorder Social History (Reviewed 07/03/24 @ 04:14 by POPPY Servin Housing: Apartment Alcohol intake: current Alcohol intake frequency: does not drink Patient Tobacco Use Status: Current someday Tobacco user Tobacco use type: Cigarette Cigarettes Per Day: 2 Years Smoked: 6 years e-Cigarette/Vaping Use: Never Used Substance Use Type: Marijuana service: No Current occupational status: employed Current occupation: right handed Cognitive needs: No Hearing needs: No Vision needs: Yes Female Reproductive History Menstrual Age of Menarche: 14 Review of Systems Const All systems reviewed & are unremarkable except as noted in HPI and below Physical Exam Const General: cooperative, healthy appearing and no acute distress Resp Effort & Inspection: normal respiratory effort and able to speak in complete sentences Cardio Rate: regular rate Peripheral pulses: Peripheral pulses 2+ throughout GI Palpation (GI): Soft to palpation Skin Lesions: no lesions Rashes: no rashes Extrem Other: Right knee: Normal to inspection. No ecchymosis, erythema, or joint effusion. No tenderness to palpation along the medial or lateral joint lines. Full knee extension and flexion. Negative david?s. Negative anterior drawer. NVI. Assessment & Plan Assessment & Plan (1) Internal derangement of right knee: Code(s): M23.91 - Unspecified internal derangement of right knee Category: Medical Plan Ms. Curtis is a 49-year-old female who presents in the office today for an evaluation of right knee pain. The patient initially presented to the [facility] [place] on 04/13/24 with a chief complaint of right knee pain ongoing for 2 weeks. She was advised to follow RICE therapy at home and was supplied with JOHN wraps. She returned to the [facility] Clinic multiple times with the same complaint. She presented to the [facility] on 05/22/24 and mentioned she felt a pop sensation in the lateral aspect of her right knee, followed by immediate mild pain and edema in the region. She was referred to [facility] and X-rays of the right knee were obtained on that encounter. She was seen again at the [facility] on 06/07/24. On the exam, a soft, nontender edema was noted on the lateral aspect of the right knee below the patella, consistent with lipoma. She was recommended to start physical therapy while she waits for her Orthopedic appointment. While in the office today, The patient reports right knee pain ongoing for about a month. She specifies her pain in the lateral aspect of the right knee. She heard a sudden pop while bending her right knee, causing her to experience sharp pain. Patient denies having any pain today. She has tried ice, compression wraps, and Tylenol with relief. We discussed the role of cortisone injection and physical therapy. However, the patient deferred both options at this time, as she is currently not experiencing any pain today. Follow-up will be PRN, or sooner if needed. X-rays of the right knee, which were obtained while in the office today and were reviewed by me, Lily Johnson PA-C, revealed: Negative for any acute fracture or dislocation. X-rays of the right knee, obtained on 05/22/24, revealed: Mild arthritis changes. No acute fracture or dislocation. Orders: Orders XR knee LT 1V 07/11/24 M25.569 - Pain in unspecified knee XR knee RT 3V 07/11/24 M25.569 - Pain in unspecified knee Patient Instructions: Scribed by Karine Dickson, medical consultant, for Lily Johnson PA-C on 07/11/24 at 10:35 am EST. Coding Level of Care Code Est Pt Level 3 (24948) Diagnoses Internal derangement of right knee M23.91
== END 2024-07-11 11:07 | disposition home or self-care (01) ==
LOC: HO.HOS 10:08
PROVIDERS: PCP Internal Medicine; Visit Provider Physician Assistant
DX: M23.91 Unspecified internal derangement of right knee (principal)
CPT/HCPCS: 99213

== ENCOUNTER 2025-02-20 09:28 | Outpatient (REF) | payer OTHER, SELFPAY | END 2025-02-20 09:29 | disposition home or self-care (01) | LOC: HO.MAMMO 09:28 | PROVIDERS: PCP Internal Medicine; Visit Provider Internal Medicine | DX: Z12.31 Encounter for screening mammogram for malignant neoplasm of breast (principal) | CPT/HCPCS: 77063; 77067 ==

== ENCOUNTER → 2025-02-20 09:45 | Outpatient (BNV) | payer OTHER, SELFPAY | PROVIDERS: PCP Internal Medicine; Visit Provider Internal Medicine | DX: Z12.31 Encounter for screening mammogram for malignant neoplasm of breast (principal) | CPT/HCPCS: 77063; 77067 ==

== ENCOUNTER 2025-02-21 12:17 | Outpatient (AMB) | payer OTHER, SELFPAY ==
[2025-02-21 12:26] VITALS: BP 110/76; PULSE 82; TEMP 37; O2SAT 97; BMI 29.0
--- NOTE | 2025-02-21 12:26 | A.OFFPC_ITS ---
Vital Signs 02/21/25 12:26 Height 5 ft 7 in Weight 185 lb 6 oz BMI 29.0 BP 110/76 Blood Pressure Location Rt brachial Position Sitting Pulse 82 Pulse Source Pulse Oximeter Temp 98.6 F Temp Source Oral Pulse Oximetry (%) 97 Oxygen Delivery Method Room Air Intake Visit Reasons: PE Allergies No Known Allergies Allergy (Verified 02/21/25 12:29) Medication List - Last Reconciled 02/21/25 by Andrew Mcguire MD carbidopa-levodopa 25-100 mg 1.5 tabs PO TID 30 days lidocaine 5% 1 patch topical DAILY 30 days melatonin 3 - 6 mg (1 - 2 x 3 mg) PO DAILY PRN 30 days Tobacco use date assessed: 02/21/25 Dental Screening Dental Screen Date: 06/07/24 Did you have a dental visit in the last 12 months?: No Did you have a dental problem in the last 6 months where you did not have access to dental care?: No Was dental information given to patient?: No HPI PE HPI Details Physical exam appointment - The patient is a 49 year old female pr esenting with a wellness visit and management of chronic conditions. - The patient reports having Parkinson's disease, for which she sees a neurologist and is taking Carbidopa and Melatonin. She experiences tension and upper back discomfort related to this condition, which impacts her functional ability, particularly when standing for prolonged periods. - She has a history of prediabetes, diag nosed last year, with plans to repeat blood tests due to the condition. - The patient reports anxiety, especiall y related to leaving the house, although it improves once she is outside. She does not want to pursue medication or therapy for this. - She has experienced irregular menstrua l periods, which is anticipated due to her age. Medical History: - Parkinson's disease - Prediabetes - Anxiety Social History: - The patient resides in [place] and [facility] is in caring for her nephew due to her sister being on dialysis. - She traveled to [place] recently, whi ch resulted in knee swelling but later subsided. - Reports anxiety when required to leave the house, but it ameliorates once outside. Family History: - Sister currently undergoing dialysis. Health Maintenance - Recent mammogram completed. - Blood tests pending for repeat, with p rediabetes monitoring. Patient requesting STD test as all - Patient due for a colonoscopy but has not scheduled one yet. - Reports no recent [employer] PATHOLOGIST visit due to a canceled appointment. Medical problems Upper back stiffness requesting chiropractor referral Bilateral foot pain requesting podiatry referral Anxiety but does not want to take medication or therapy Parkinson's disease seeing neurologist Due for colonoscopy Due for fasting labs requesting STD test as well Patient Instructions - Fast before completing the scheduled b lood tests. - Schedule and complete blood test first thing in the morning before breakfast. - Contact provided services for the [facility] opractor for upper back pain and foot doctor for bilateral foot pain, appointments in [place] after a couple of days. - Maintain awareness around anxiety and implement self-coping strategies. Let me know if you want to take medication or restart therapy Review of Systems - General: No fever no chills - Neurological: No headaches no dizzin ess - Ear nose throat: No sore throat no hearing difficulty no ear pain - Cardiovascular: No syncope, no chest pain, no palpitations - Gastrointestinal: No nausea vomiting or diarrhea - Endocrine: No polyuria polydipsia no heat intolerance - Genitourinary: No dysuria - Skin: No new complaints Physical Exam General: Cooperative, healthy appearing, comfortable, no acute distress Orientation: Patient oriented x3 Head: Normal to inspection Ears: Within normal limit visually Nose: Normal external nose present Face and sinus: Normal facial exam Eyes: Appearance normal, extraocular movement intact pupils reactive Neck: Normal visual inspection and supple Respiratory: Normal respiratory effort and able to speak in complete sentences. Clear to auscultation, no stridor Cardiovascular: S1 and S2 RRR GI: Normal to inspection. Soft to palpation and nontender Skin: Turgor normal, no acute findings Back: Experiencing stiffness upper back Neuro: Patient oriented x3, motor sensory intact, weakness right upper arm and right lower leg chronic, balance intact, tandem pass Extremities: Normal to inspection, complaining of bilateral foot pain around the soles if stand for prolonged periods of time requesting podiatry referral [facility] Medical History Parkinson's disease Surgical History History of bunionectomy Family History Mother Ovarian cancer Sister Acute kidney failure Other Mental health disorder Social History Housing: Apartment Alcohol intake: current Alcohol intake frequency: does not drink Patient Tobacco Use Status: Current someday Tobacco user Tobacco use type: Cigarette Cigarettes Per Day: 2 Years Smoked: 6 years e-Cigarette/Vaping Use: Never Used Substance Use Type: Marijuana service: No Current occupational status: employed Current occupation: right handed Cognitive needs: No Hearing needs: No Vision needs: Yes Female Reproductive History Menstrual Age of Menarche: 14 Questionnaire PHQ-9 Over the last 2 weeks, how often have you been bothered by any of the following problems? 1. Little interest or pleasure in doing things: several days 2. Feeling down, depressed, or hopeless: several days 3. Trouble falling or staying asleep, or sleeping too much: nearly every day 4. Feeling tired or having little energy: several days 5. Poor appetite or overeating: several days 6. Feeling bad about yourself - or that you are a failure or have let yourself or your family down: not at all 7. Trouble concentrating on things, such as reading the newspaper or watching television: not at all 8. Moving or speaking so slowly that other people could have noticed. Or the opposite - being so fidgety or restless that you have been moving around a lot more than usual: several days 9. Thoughts that you would be better off or of hurting yourself in some way: not at all Total score: 8 Depression Screening Interpretation: Negative Depression Screening Done: Yes 98367 - PHQ-9 Billing: Yes Source: Developed by Drs. Bakari Bhakta, Alley Adair, Issac Peoples and colleagues, with an educational lewis from [employer]. Thrive Questionnaire Date Thrive assessed: 06/07/24 I am a: Patient What is your living situation today?: I have a steady place to live Within the past 12 months, did the food you bought not last and you didn't have the money to get more?: I choose not to answer this question Within the past 12 months, did you worry whether your food would run out before you got money to buy more?: I choose not to answer this question Do you have trouble paying for medicines?: No Do you have trouble getting transportation to medical appointments?: No Do you have trouble paying your heating and electricity bill?: No Do you have trouble taking care of your child, family member or friend?: No Do you have trouble with day-to-day activities such as bathing, preparing meals, shopping, managing finances, etc.?: Yes Are you currently unemployed and looking for a job?: No Are you interested in more education?: No Please select the resources that you would like help with: Food Currently or been in a relationship where the following occur: No concerns reported THRIVE Score: 0 AUDIT C Alcohol Use Questionnaire (AUDIT-C) 1. How often do you have a drink containing alcohol?: 2-4 times a month 2. How many drinks containing alcohol do you have on a typical day when you are drinking?: 3 or 4 3. How often do you have six or more drinks on one occasion?: Less than monthly Total Score: 4 STACI-7 AMB Questionnaire STACI-7 Date STACI - 7 assessed: 06/07/24 Feeling nervous, anxious, or on edge: 3 = Nearly every day Not being able to stop or control worryin = Nearly every day Worrying too much about different things: 3 = Nearly every day Trouble relaxin = Several days Being so restless that it is hard to sit still: 0 = Not at all Becoming easily annoyed or irritable: 1 = Several days Feeling afraid as if something awful might happen: 0 = Not at all Total STACI-7 score (0-4 normal; 5-9 mild; 10-14 moderate; 15-21 severe): 11 Source: Developed by Drs. Bakari Bhakta, Alley Adair, Issac Peoples and colleagues, with an educational lewis from [employer]. Physical exam (Primary Care) Vital Signs: Last Vital Signs Temp 98.6 F 02/21/25 12:26 Pulse 82 02/21/25 12:26 BP 110/76 02/21/25 12:26 Pulse Ox 97 02/21/25 12:26 Oxygen Delivery Method Room Air 02/21/25 12:26 BMI result Body Mass Index 29.0 Tobacco/Smoking Status: Tobacco use Status Tobacco use date assessed 02/21/25 02/21/25 12:34 Patient Tobacco Use Status Current someday Tobacco 02/21/25 12:34 Tobacco use type Cigarette 02/21/25 12:34 e-Cigarette/Vaping Use Never Used 02/21/25 12:34 PHQ-9: PHQ-9 Score PHQ-9: Total score 8 02/21/25 12:34 Depression Screening Interpretation: Negative Thrive Assessment: Date of Thrive Assessment Date Thrive assessed 06/07/24 02/21/25 12:34 Currently or been in a relationship where the following occur: No concerns reported Coding Level of Care Code Est Pt Level 4 (55872) Est Pt Prev Care 40-64y(06772) Diagnoses Encounter for general adult medical examination with abnormal findings Z00.01 Upper back pain M54.9 Foot pain, bilateral M79.671; M79.672 Colon cancer screening Z12.11 Parkinson's disease without dyskinesia, unspecified whether manifestations fluc tuate G20.A1 Fluctuating manifestations: unspecified whether manifestations fluctuate Screen for sexually transmitted diseases Z11.3 Impaired fasting blood sugar R73.01 Vitamin D deficiency E55.9 Additional Codes PHQ-9 - 99953 - PHQ-9 Billing: Yes ([id number]) Assessment & Plan Assessment & Plan (1) Encounter for general adult medical examination with abnormal findings: Code(s): Z00.01 - Encounter for general adult medical examination with abnormal findings Category: Medical (2) Upper back pain: Code(s): M54.9 - Dorsalgia, unspecified Category: Medical (3) Foot pain, bilateral: Code(s): M79.671 - Pain in right foot; M79.672 - Pain in left foot Category: Medical (4) Colon cancer screening: Code(s): Z12.11 - Encounter for screening for malignant neoplasm of colon Category: Medical (5) Parkinson's disease without dyskinesia: Comment: Positive DaTscan (04/2023). Young onset. Code(s): G20.A1 - Parkinson's disease without dyskinesia, without mention of fluctuations Category: Medical Qualifiers: Fluctuating manifestations: unspecified whether manifestations fluctuate Qualified Code(s): G20.A1 - Parkinson's disease without dyskinesia, without mention of fluctuations (6) Screen for sexually transmitted diseases: Code(s): Z11.3 - Encounter for screening for infections with a predominantly sexual mode of transmission Category: Medical (7) Impaired fasting blood sugar: Code(s): R73.01 - Impaired fasting glucose Category: Medical (8) Vitamin D deficiency: Code(s): E55.9 - Vitamin D deficiency, unspecified Category: Medical Plan Physical exam appointment - The patient is a 49 year old female presenting with a wellness visit and management of chronic conditions. - The patient reports having Parkinson's disease, for which she sees a neurologist and is taking Carbidopa and Melatonin. She experiences tension and upper back discomfort related to this condition, which impacts her functional ability, particularly when standing for prolonged periods. - She has a history of prediabetes, diagnosed last year, with plans to repeat blood tests due to the condition. - The patient reports anxiety, especially related to leaving the house, although it improves once she is outside. She does not want to pursue medication or therapy for this. - She has experienced irregular menstrual periods, which is anticipated due to her age. Medical History: - Parkinson's disease - Prediabetes - Anxiety Social History: - The patient resides in [place] and assists in caring for her nephew due to her sister being on dialysis. - She traveled to [place] recently, which resulted in knee swelling but later subsided. - Reports anxiety when required to leave the house, but it ameliorates once outside. Family History: - Sister currently undergoing dialysis. Health Maintenance - Recent mammogram completed. - Blood tests pending for repeat, with prediabetes monitoring. Patient requesting STD test as all - Patient due for a colonoscopy but has not scheduled one yet. - Reports no recent [employer] PATHOLOGIST visit due to a canceled appointment. Medical problems Upper back stiffness requesting chiropractor referral Bilateral foot pain requesting podiatry referral Anxiety but does not want to take medication or therapy Parkinson's disease seeing neurologist Due for colonoscopy Due for fasting labs requesting STD test as well Patient Instructions - Fast before completing the scheduled blood tests. - Schedule and complete blood test first thing in the morning before breakfast. - Contact provided services for the chiropractor for upper back pain and foot doctor for bilateral foot pain, appointments in [place] after a couple of days. - Maintain awareness around anxiety and implement self-coping strategies. Let me know if you want to take medication or restart therapy Orders: Orders HIV Ab/Ag Today E55.9 - Vitamin D deficiency, unspecified, G20.A1 - Parkinson's disease without dyskinesia, without mention of fluctuations, M54.9 - Dorsalgia, unspecified, M79.671 - Pain in right foot, M79.672 - Pain in left foot, R73.01 - Impaired fasting glucose, Z00.01 - Encounter for general adult medical examination with abnormal findings, Z11.3 - Encounter for screening for infections with a predominantly sexual mode of transmission Herpes Simplex Virus Ab IgG Today E55.9 - Vitamin D deficiency, unspecified, G20.A1 - Parkinson's disease without dyskinesia, without mention of fluctuations, M54.9 - Dorsalgia, unspecified, M79.671 - Pain in right foot, M79.672 - Pain in left foot, R73.01 - Impaired fasting glucose, Z00.01 - Encounter for general adult medical examination with abnormal findings, Z11.3 - Encounter for screening for infections with a predominantly sexual mode of transmission Hepatitis C Viral Load Today E55.9 - Vitamin D deficiency, unspecified, G20.A1 - Parkinson's disease without dyskinesia, without mention of fluctuations, M54.9 - Dorsalgia, unspecified, M79.671 - Pain in right foot, M79.672 - Pain in left foot, R73.01 - Impaired fasting glucose, Z00.01 - Encounter for general adult medical examination with abnormal findings, Z11.3 - Encounter for screening for infections with a predominantly sexual mode of transmission Syphilis Screen Today E55.9 - Vitamin D deficiency, unspecified, G20.A1 - Parkinson's disease without dyskinesia, without mention of fluctuations, M54.9 - Dorsalgia, unspecified, M79.671 - Pain in right foot, M79.672 - Pain in left foot, R73.01 - Impaired fasting glucose, Z00.01 - Encounter for general adult medical examination with abnormal findings, Z11.3 - Encounter for screening for infections with a predominantly sexual mode of transmission Comprehensive Gilbert. Panel Fast Today E55.9 - Vitamin D deficiency, unspecified, G20.A1 - Parkinson's disease without dyskinesia, without mention of fluctuations, M54.9 - Dorsalgia, unspecified, M79.671 - Pain in right foot, M79.672 - Pain in left foot, R73.01 - Impaired fasting glucose, Z00.01 - Encounter for general adult medical examination with abnormal findings, Z11.3 - Encounter for screening for infections with a predominantly sexual mode of transmission Lipid Panel Today E55.9 - Vitamin D deficiency, unspecified, G20.A1 - Parkinson's disease without dyskinesia, without mention of fluctuations, M54.9 - Dorsalgia, unspecified, M79.671 - Pain in right foot, M79.672 - Pain in left foot, R73.01 - Impaired fasting glucose, Z00.01 - Encounter for general adult medical examination with abnormal findings, Z11.3 - Encounter for screening for infections with a predominantly sexual mode of transmission Hemoglobin A1c Today E55.9 - Vitamin D deficiency, unspecified, G20.A1 - Parkinson's disease without dyskinesia, without mention of fluctuations, M54.9 - Dorsalgia, unspecified, M79.671 - Pain in right foot, M79.672 - Pain in left foot, R73.01 - Impaired fasting glucose, Z00.01 - Encounter for general adult medical examination with abnormal findings, Z11.3 - Encounter for screening for infections with a predominantly sexual mode of transmission Complete Blood Count Auto Diff Today E55.9 - Vitamin D deficiency, unspecified, G20.A1 - Parkinson's disease without dyskinesia, without mention of fluctuations, M54.9 - Dorsalgia, unspecified, M79.671 - Pain in right foot, M79.672 - Pain in left foot, R73.01 - Impaired fasting glucose, Z00.01 - Encounter for general adult medical examination with abnormal findings, Z11.3 - Encounter for screening for infections with a predominantly sexual mode of transmission Vitamin D 25-OH (D2 and D3) Today E55.9 - Vitamin D deficiency, unspecified, G20.A1 - Parkinson's disease without dyskinesia, without mention of fluctuations, M54.9 - Dorsalgia, unspecified, M79.671 - Pain in right foot, M79.672 - Pain in left foot, R73.01 - Impaired fasting glucose, Z00.01 - Encounter for general adult medical examination with abnormal findings, Z11.3 - Encounter for screening for infections with a predominantly sexual mode of transmission TSH reflex Free T4 Today E55.9 - Vitamin D deficiency, unspecified, G20.A1 - Parkinson's disease without dyskinesia, without mention of fluctuations, M54.9 - Dorsalgia, unspecified, M79.671 - Pain in right foot, M79.672 - Pain in left foot, R73.01 - Impaired fasting glucose, Z00.01 - Encounter for general adult medical examination with abnormal findings, Z11.3 - Encounter for screening for infections with a predominantly sexual mode of transmission Referrals Chiropractic Referral M54.9 - Dorsalgia, unspecified Gastroenterology Referral Z12.11 - Encounter for screening for malignant neoplasm of colon Podiatry Referral M79.671 - Pain in right foot, M79.672 - Pain in left foot
== END 2025-02-21 12:50 | disposition home or self-care (01) ==
LOC: HO.HMCC 12:18
PROVIDERS: PCP Internal Medicine; Visit Provider Internal Medicine
DX: Z00.01 Encounter for general adult medical examination with abnormal findings (principal); M54.9 Dorsalgia, unspecified; G20.A1 Parkinson's disease without dyskinesia, without mention of fluctuations; M79.671 Pain in right foot; M79.672 Pain in left foot; Z12.11 Encounter for screening for malignant neoplasm of colon; Z11.3 Encounter for screening for infections with a predominantly sexual mode of transmission; R73.01 Impaired fasting glucose; E55.9 Vitamin D deficiency, unspecified

== ENCOUNTER → 2025-02-21 12:17 | Outpatient (BNVA) | payer OTHER, SELFPAY | PROVIDERS: PCP Internal Medicine; Visit Provider Internal Medicine | DX: Z00.01 Encounter for general adult medical examination with abnormal findings (principal); M54.9 Dorsalgia, unspecified; M79.671 Pain in right foot; M79.672 Pain in left foot; G20.A1 Parkinson's disease without dyskinesia, without mention of fluctuations; R73.01 Impaired fasting glucose; E55.9 Vitamin D deficiency, unspecified; Z79.899 Other long term (current) drug therapy | CPT/HCPCS: 96127; 99212; 99396 ==

== ENCOUNTER 2025-02-26 09:00 | Outpatient (REF) | payer OTHER, SELFPAY ==
[2025-02-26 12:51] LABS: MANUAL DIFF FLAG NO
[2025-02-26 13:06] LABS: Basophils Absolute Auto 0.1 X10*3/uL (0.0-0.2); Eosinophils Absolute Auto 0.3 X10*3/uL (0.0-0.4); Eosinophils Percent Auto 5.3 % (0-4); Hematocrit 41.5 % (37.0-47.0); Hemoglobin 13.2 g/dl (12.0-16.0); Imm Gran Abs Auto 0.02 X10*3/uL (0.00-0.03); Imm Gran Pct Auto 0.3 % (0.0-0.4); Lymphocytes Absolute Auto 1.7 X10*3/uL (1.2-4.9); Lymphocytes Percent Auto 29.6 % (20-40); Mean Corpuscular HGB Conc 31.8 g/dl (31.0-35.0); Mean Corpuscular Volume 87.9 fL (80.0-98.0); Mean Platelet Volume 12.7 fL (9.4-12.3); Monocytes Absolute Auto 0.4 X10*3/uL (0.1-1.2); Monocytes Percent Auto 6.8 % (2-11); Neutrophils Absolute Auto 3.3 x10*3/uL (2.0-8.3); Platelet Count 243 X10*3/uL (160-400); Red Blood Count 4.72 X10*6/uL (4.20-5.50); Red Cell Distribution Width 13.4 % (11.0-16.0); White Blood Count 5.8 X10*3/uL (4.8-10.8)
[2025-02-26 13:14] LABS: Estimated Average Glucose 123 mg/dL; Hemoglobin A1c % 5.9 % (<6.0)
[2025-02-26 13:35] LABS: Alanine Aminotransferase 19 U/L (0-31); Albumin Level 4.4 g/dL (3.5-5.0); Alkaline Phosphatase 53 U/L (39-117); Anion Gap 11 (12-20); Aspartate Amino Transferase 30 U/L (5-31); Bilirubin Total 0.3 mg/dL (0.0-1.0); Blood Urea Nitrogen 18 mg/dL (9-16); Calcium 9.3 mg/dL (8.4-10.2); Carbon Dioxide 25 mmol/L (22-29); Chloride 109 mmol/L (96-108); Cholesterol 171 mg/dL (<200); Estimated Glomerular Filt Rate > 60; Glucose Fasting 101 mg/dL (60-99); HDL Cholesterol 52 mg/dL (>40); LDL Cholesterol Calculated 100 mg/dL (<100); Potassium 4.5 mmol/L (3.3-5.1); Sodium 140 mmol/L (135-145); Total Protein 7.7 g/dL (6.5-8.0); Triglycerides 98 mg/dL (<150)
[2025-02-27 06:28] LABS: Herpes Simplex Type 2 IgG 6.84 index
[2025-02-27 08:19] LABS: HIV AB/AG Nonreactive (Nonreactive); HIV Num 1 0.07 S/CO (0.00-0.99)
[2025-02-27 08:25] LABS: Syphilis Screen Nonreactive (Nonreactive)
[2025-02-27 20:39] LABS: HCV Log PCR <1.18 NOT DETECTED Log IU/mL (NOT DETECTED); HepC Viral Load <15 NOT DETECTED IU/mL (NOT DETECTED)
[2025-03-02 16:14] LABS: Vitamin D 25-OH, D2 <4 ng/mL; Vitamin D 25-OH, D3 15 ng/mL; Vitamin D 25-OH, Total 15 ng/mL (30-100)
== END 2025-02-26 09:01 | disposition home or self-care (01) ==
LOC: HO.HMGCLDS 09:00
PROVIDERS: PCP Internal Medicine; Visit Provider Internal Medicine
DX: Z00.01 Encounter for general adult medical examination with abnormal findings (principal); R73.01 Impaired fasting glucose; E55.9 Vitamin D deficiency, unspecified; Z11.3 Encounter for screening for infections with a predominantly sexual mode of transmission; M54.9 Dorsalgia, unspecified; M79.671 Pain in right foot; M79.672 Pain in left foot; G20.A1 Parkinson's disease without dyskinesia, without mention of fluctuations
CPT/HCPCS: 36415; 80053; 80061; 82306; 83036; 84443; 85025; 86695; 86696; 86780; 87389; 87522

== ENCOUNTER 2025-03-01 08:41 | Outpatient (AMB) | payer OTHER, SELFPAY ==
--- NOTE | 2025-03-01 09:08 | A.OFFPC_ITS ---
Intake Visit Reasons: I phone recent lab results Allergies No Known Allergies Allergy (Verified 02/21/25 12:29) Medication List - Last Reconciled 03/01/25 by Andrew Mcguire MD carbidopa-levodopa 25-100 mg 1.5 tabs PO TID 30 days lidocaine 5% 1 patch topical DAILY 30 days melatonin 3 - 6 mg (1 - 2 x 3 mg) PO DAILY PRN 30 days Tobacco use date assessed: 02/21/25 Dental Screening Dental Screen Date: 06/07/24 HPI I phone recent lab results HPI Details History - The patient is a 49-year-old female pr esenting with a review of laboratory results and sexually transmitted disease screening. - Herpes Simplex Virus Type 1 and Type 2 infection: The patient was informed of exposure to both types of herpes virus, which can cause oral and genital sores. - The patient was advised that the virus remains in the body and can cause recurrent sores, especially during periods of stress. - The patient was informed about the tra nsmission risks during active sores and the availability of medications to suppress outbreaks. - Prediabetes: The patient was reminded of her prediabetic status and the need for monitoring. - Vitamin D: The patient was advised to start vitamin D supplementation due to the common deficiency, pending lab results. Problem List - Herpes Simplex Virus Type 1 and Type 2 infection - Prediabetes - Preventative care: Vitamin D supplemen tation Patient Instructions - Start taking vitamin D supplements as prescribed. - Monitor for any herpes sores and conta ct the doctor if they occur. - Avoid intimate contact during active h erpes sores to prevent transmission. Review of Systems - General: No fever no chills - Neurological: No headaches no dizziness - Ear nose throat: No sore throat no hearing difficulty no ear pain - Cardiovascular: No syncope, no chest pain, no palpitations - Gastrointestinal: No nausea vomiting or diarrhea [facility] Medical History Parkinson's disease Surgical History History of bunionectomy Family History Mother Ovarian cancer Sister Acute kidney failure Other Mental health disorder Social History Housing: Apartment Alcohol intake: current Alcohol intake frequency: does not drink Patient Tobacco Use Status: Current someday Tobacco user Tobacco use type: Cigarette Cigarettes Per Day: 2 Years Smoked: 6 years e-Cigarette/Vaping Use: Never Used Substance Use Type: Marijuana service: No Current occupational status: employed Current occupation: right handed Cognitive needs: No Hearing needs: No Vision needs: Yes Female Reproductive History Menstrual Age of Menarche: 14 Questionnaire Thrive Questionnaire Date Thrive assessed: 02/21/25 I am a: Patient What is your living situation today?: I have a steady place to live Within the past 12 months, did the food you bought not last and you didn't have the money to get more?: I choose not to answer this question Within the past 12 months, did you worry whether your food would run out before you got money to buy more?: I choose not to answer this question Do you have trouble paying for medicines?: No Do you have trouble getting transportation to medical appointments?: No Do you have trouble paying your heating and electricity bill?: No Do you have trouble taking care of your child, family member or friend?: No Do you have trouble with day-to-day activities such as bathing, preparing meals, shopping, managing finances, etc.?: Yes Are you currently unemployed and looking for a job?: No Are you interested in more education?: No Please select the resources that you would like help with: Food Currently or been in a relationship where the following occur: No concerns reported THRIVE Score: 0 STACI-7 AMB Questionnaire STACI-7 Date STACI - 7 assessed: 06/07/24 Source: Developed by Drs. Bakari Bhakta, Alley Adair, Issac Peoples and colleagues, with an educational lewis from [employer]. Physical exam (Primary Care) Tobacco/Smoking Status: Tobacco use Status Tobacco use date assessed 02/21/25 03/01/25 09:09 Patient Tobacco Use Status Current someday Tobacco 03/01/25 09:09 Tobacco use type Cigarette 03/01/25 09:09 e-Cigarette/Vaping Use Never Used 03/01/25 09:09 Thrive Assessment: Date of Thrive Assessment Date Thrive assessed 02/21/25 03/01/25 09:09 Currently or been in a relationship where the following occur: No concerns reported Telehealth Telehealth Telehealth Platform: [facility] Location of provider rendering services: practice address Location of patient: address on file Patient Identification confirmed using: Name, : Yes Telehealth method: voice only Patient verbally consented to treatment: Yes Patient verbally consented to billing insurance company: Yes Patient informed of any privacy concerns related to visit: Yes Minutes spent on Phone/Video with Pt.: 13 Coding Level of Care Code Tele Est Pt Level 3 (78027) Diagnoses Herpes simplex type 1 antibody positive B00.9 Human herpes simplex virus type 2 (HSV-2) DNA detected B00.9 Vitamin D deficiency E55.9 Assessment & Plan Assessment & Plan (1) Herpes simplex type 1 antibody positive: Code(s): B00.9 - Herpesviral infection, unspecified Category: Medical (2) Human herpes simplex virus type 2 (HSV-2) DNA detected: Code(s): B00.9 - Herpesviral infection, unspecified Category: Medical (3) Vitamin D deficiency: Code(s): E55.9 - Vitamin D deficiency, unspecified Category: Medical Plan History - The patient is a 49-year-old female presenting with a review of laboratory results and sexually transmitted disease screening. - Herpes Simplex Virus Type 1 and Type 2 infection: The patient was informed of exposure to both types of herpes virus, which can cause oral and genital sores. - The patient was advised that the virus remains in the body and can cause recurrent sores, especially during periods of stress. - The patient was informed about the transmission risks during active sores and the availability of medications to suppress outbreaks. - Prediabetes: The patient was reminded of her prediabetic status and the need for monitoring. - Vitamin D: The patient was advised to start vitamin D supplementation due to the common deficiency, pending lab results. Problem List - Herpes Simplex Virus Type 1 and Type 2 infection - Prediabetes - Preventative care: Vitamin D supplementation Patient Instructions - Start taking vitamin D supplements as prescribed. - Monitor for any herpes sores and contact the doctor if they occur. - Avoid intimate contact during active herpes sores to prevent transmission. Medications: New cholecalciferol (vitamin D3) 50 mcg PO DAILY 90 caps 3RF
== END 2025-03-01 09:46 | disposition home or self-care (01) ==
LOC: HO.HMCC 08:42
PROVIDERS: PCP Internal Medicine; Visit Provider Internal Medicine
DX: B00.9 Herpesviral infection, unspecified (principal); E55.9 Vitamin D deficiency, unspecified

== ENCOUNTER → 2025-03-01 08:41 | Outpatient (BNVA) | payer OTHER, SELFPAY | PROVIDERS: PCP Internal Medicine; Visit Provider Internal Medicine | DX: Z13.89 Encounter for screening for other disorder (principal) ==

== ENCOUNTER 2025-03-08 08:29 | Outpatient (AMB) | payer OTHER, SELFPAY ==
--- OUTSIDE RECORDS SUMMARY | 2025-03-08 08:35 | XMS_ITS | Clinical Summary ---
Author Organization [address] [facility] Address [address] [place] [address] Phone Care Team Providers Care Senior Hr Generalist Name Role Phone Andrew Mcguire MD Primary Care Provider [phone] Social History Tobacco Use Types Packs/Day Years Used Date Smoking Tobacco: Never Assessed Comments Unknown Sex and Gender Information Value Date Recorded Sex Assigned at Not on file Legal Sex Female 10:53 AM EDT Gender Identity Not on file Sexual Orientation Not on file Plan of Treatment Upcoming Encounters Date Type Department Care Team ([facility] st Contact Info) Description 05/15/2025 10:00 AM EDT Office Visit Orthopedic Surgery - [place] [id number] [address] Surendra Rascon DPM [address] [address] Health Maintenance Due Date Last Done Comments Breast Cancer Screening 1975 DTaP,Tdap,and Td Vaccines (1 - Tdap) 1994 Hepatitis B Vaccines (1 of 3 - 19+ 3-dose series) 1994 Cervical Cancer Screening: P ap Smear 1996 COVID-19 Vaccine (2023-2 5 season) 2024 Colorectal Cancer Screening: Colonoscopy 02/22/2025 Depression Screening 02/22/2025 HIV Screening 02/22/2025 Hepatitis C Screening 02/22/2025 Social Influencers of Health Screening 02/22/2025 Influenza Vaccine (Season Ended) 2025 HIB Vaccines Aged Out No longer eligi ble based on patient's age to complete this topic HPV Vaccines Aged Out No longer eligi ble based on patient's age to complete this topic Hepatitis A Vaccines Aged Out No long er eligible based on patient's age to complete this topic IPV Vaccines Aged Out No longer eligi ble based on patient's age to complete this topic MMR Vaccines Aged Out No longer eligi ble based on patient's age to complete this topic Meningococcal ACWY Vaccine Aged Out N o longer eligible based on patient's age to complete this topic Meningococcal B Vaccine Aged Out No l onger eligible based on patient's age to complete this topic Pneumococcal Vaccine: Pediat rics (0 to 5 Years) and At-Risk Patients (6 to 64 Years) Aged Out No longer eligible b ased on patient's age to complete this topic RSV Immunization Patients Un matthew 20 months Aged Out No longer eligible b ased on patient's age to complete this topic Varicella Vaccines Aged Out No longer eligible based on patient's age to complete this topic Insurance [address] [address] PLAN Care Teams Senior Hr Generalist Relationship Specialty Start Date End Date Andrew Mcguire MD [address] [place] [id number] PCP - General Internal Medicine 02/22/25
--- NOTE | 2025-03-08 09:02 | A.OFFPC_ITS ---
Intake Visit Reasons: lab (serology) results Allergies No Known Allergies Allergy (Verified 02/21/25 12:29) Medication List - Last Reconciled 03/08/25 by Andrew Mcguire MD carbidopa-levodopa 25-100 mg 1.5 tabs PO TID 30 days cholecalciferol (vitamin D3) 50 mcg PO DAILY lidocaine 5% 1 patch topical DAILY 30 days melatonin 3 - 6 mg (1 - 2 x 3 mg) PO DAILY PRN 30 days Tobacco use date assessed: 02/21/25 Dental Screening Dental Screen Date: 06/07/24 HPI lab (serology) results HPI Details History - The patient is a 49-year-old female pr esenting with concerns regarding her herpes diagnosis and current health status. - Herpes diagnosis was initially identif ied in 2018, and the patient was unaware at the time. - No current herpes flare-ups; no cold s ores present. 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 - Request for updated workplace accommod ation letter due to inability to stand for extended periods without significant discomfort. states she can work for 5 hours a day only Medical History: - Herpes Simplex Virus infection since . - Chronic leg pain associated with prolo nged standing, currently exacerbated by work requirements. Problem List - Herpes Simplex Virus infection + both 1 and 2 - Leg pain bilateral - unable to stand for prolong periods of time at work Patient Instructions - herpes transmission is unlikely if th ere are no active sores. - Continue managing workload to consist of five hours of standing work per day as per new workplace accommodation letter. - Seek intervention if herpes symptoms p resent as sores, at that time avoid intimate contact Review of Systems - General: No fever no chills - Neurological: No headaches no dizziness - Ear nose throat: No sore throat no hearing difficulty no ear pain - Cardiovascular: No syncope, no chest pain, no palpitations - Gastrointestinal: No nausea vomiting or diarrhea [facility] Medical History Parkinson's disease Surgical History History of bunionectomy Family History Mother Ovarian cancer Sister Acute kidney failure Other Mental health disorder Social History Housing: Apartment Alcohol intake: current Alcohol intake frequency: does not drink Patient Tobacco Use Status: Current someday Tobacco user Tobacco use type: Cigarette Cigarettes Per Day: 2 Years Smoked: 6 years Packs per year/per ci.00 e-Cigarette/Vaping Use: Never Used Substance Use Type: Marijuana service: No Current occupational status: employed Current occupation: right handed Cognitive needs: No Hearing needs: No Vision needs: Yes Female Reproductive History Menstrual Age of Menarche: 14 Questionnaire Thrive Questionnaire Date Thrive assessed: 02/21/25 STACI-7 AMB Questionnaire STACI-7 Date STACI - 7 assessed: 06/07/24 Source: Developed by Drs. Bakari Bhakta, Alley Adair, Issac Peoples and colleagues, with an educational lewis from [employer] Physical exam (Primary Care) Tobacco/Smoking Status: Tobacco use Status Tobacco use date assessed 02/21/25 03/08/25 09:02 Patient Tobacco Use Status Current someday Tobacco 03/08/25 09:02 Tobacco use type Cigarette 03/08/25 09:02 e-Cigarette/Vaping Use Never Used 03/08/25 09:02 Thrive Assessment: Date of Thrive Assessment Date Thrive assessed 02/21/25 03/08/25 09:02 Telehealth Telehealth Telehealth Platform: [facility] Location of provider rendering services: practice address Location of patient: address on file Patient Identification confirmed using: Name, : Yes Telehealth method: voice only Patient verbally consented to treatment: Yes Patient verbally consented to billing insurance company: Yes Patient informed of any privacy concerns related to visit: Yes Minutes spent on Phone/Video with Pt.: 13 Coding Level of Care Code Tele Est Pt Level 3 (81346) Diagnoses Bilateral leg pain M79.604; M79.605 Foot pain, bilateral M79.671; M79.672 Herpes simplex type 1 antibody positive B00.9 Human herpes simplex virus type 2 (HSV-2) DNA detected B00.9 Assessment & Plan Assessment & Plan (1) Bilateral leg pain: Code(s): M79.604 - Pain in right leg; M79.605 - Pain in left leg Category: Medical (2) Foot pain, bilateral: Code(s): M79.671 - Pain in right foot; M79.672 - Pain in left foot Category: Medical (3) Herpes simplex type 1 antibody positive: Code(s): B00.9 - Herpesviral infection, unspecified Category: Medical (4) Human herpes simplex virus type 2 (HSV-2) DNA detected: Code(s): B00.9 - Herpesviral infection, unspecified Category: Medical Plan History - The patient is a 49-year-old female presenting with concerns regarding her herpes diagnosis and current health status. - Herpes diagnosis was initially identified in 2018, and the patient was unaware at the time. - No current herpes flare-ups; no cold sores present. 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 - Request for updated workplace accommodation letter due to inability to stand for extended periods without significant discomfort. states she can work for 5 hours a day only Medical History: - Herpes Simplex Virus infection since 2018. - Chronic leg pain associated with prolonged standing, currently exacerbated by work requirements. Problem List - Herpes Simplex Virus infection + both 1 and 2 - Leg pain bilateral - unable to stand for prolong periods of time at work Patient Instructions - herpes transmission is unlikely if there are no active sores. - Continue managing workload to consist of five hours of standing work per day as per new workplace accommodation letter. - Seek intervention if herpes symptoms present as sores, at that time avoid intimate contact
== END 2025-03-08 09:20 | disposition home or self-care (01) ==
LOC: HO.HMCC 08:29
PROVIDERS: PCP Internal Medicine; Visit Provider Internal Medicine
DX: M79.604 Pain in right leg (principal); M79.605 Pain in left leg; M79.671 Pain in right foot; M79.672 Pain in left foot; B00.9 Herpesviral infection, unspecified

== ENCOUNTER 2025-05-29 08:00 | Outpatient (RCR) | payer MEDICAID, OTHER, SELFPAY ==
--- NOTE | 2025-02-01 12:56 | MHC.OT.EP ---
[address] [phone] Occupational Therapy Plan of Care Patient Name: Chiquis Curtis Date of Evaluation: 02/01/25 Diagnosis: Parkinson's disease Assessment: Pt is a 49 y/o right hand dominant female referred to OT for Parkinson's. Pt reports progressive heaviness and decreased function in her R UE, impacting her ability to complete ADL's such as meal prep and putting her hair in a ponytail. She presents with decreased coordination, R UE rigidity, bradykinesia, and and gait difficulty. Pt is an excellent candidate for the Parkinson's Wellness Recovery (PWR!) program and would benefit from skilled OT to improve R UE function and address noted barriers to improve balance and quality of life. Frequency and Duration: The patient will be seen 2x wk for 6 weeks Short Term Goals: Participate in PWR! moves to improve postural alignment and trunk rotation with minimal cues Demo improved initiation and amplitude of R UE during therex Clinical Evaluator Goals: Demo improved coordination as evidenced by >8 sec improvement on FDT Improve R UE strength to 5/5 IND with PRW! moves for HEP Pt will report improved use of R UE during cooking and grooming taks Treatment Plan: Therapeutic Exercise Therapeutic Activity Home Exercise Program Neuro Re-ed Patient Education ADL Training Electronically Signed By: Kayla Zhu MS OTR/L Please Sign and return to therapist. Thank you once again for your referral.
--- NOTE | 2025-05-29 14:11 | MHC.OT.DC ---
[facility] Office [address] [phone] F: [phone] F: [phone] Occupational Therapy Discharge Note Patient Name: Chiquis Curtis Provider: Lashaun Mercado Diagnosis: Parkinson's disease Date of Evaluation: 02/01/25 Date of Discharge: 05/29/25 Treatments to Date: 19 Discharge Status: Achieved Goals Improved Function Independent with HEP Discharge Summary: Chiquis has been attending OT regularly for 19 visits and progressed very well in OT, meeting all LTG's set on admission. R UE strength has improved to 5/5 with functional gains reported as she is now able to do her hair (blow dry and put up) without any arm fatigue. Gross grasp improved to 45# and fine motor coordination improved significantly as evidenced by 27 second improvement on Functional Dexterity Test. At this time, Chiquis is IND with [employer] and has been issued handouts and video resources for continued progress to improve strength, coordination, and flexibility. Pt in agreement with discharge. Thank you for this referral! Electronically Signed By: Kayla Zhu MS OTR/L Reviewed/agree with student documentation: Therapist: Please Sign and return to therapist, thank you for your referral.
== END 2025-05-29 14:12 | disposition home or self-care (01) ==
LOC: HO.OTS 08:00
PROVIDERS: Visit Provider Nurse Practitioner Family
DX: G20.A1 Parkinson's disease without dyskinesia, without mention of fluctuations (principal); R26.9 Unspecified abnormalities of gait and mobility; R29.898 Other symptoms and signs involving the musculoskeletal system
CPT/HCPCS: 97110; 97112; 97140; 97166; 97530

== ENCOUNTER 2025-08-22 14:48 | Outpatient (AMB) | payer OTHER, SELFPAY ==
[2025-08-22 15:31] VITALS: BP 140/90; PULSE 77; O2SAT 98; BMI 30.2
--- NOTE | 2025-08-22 15:31 | A.OFFVIS_ITS ---
Vital Signs 08/22/25 15:31 Height 5 ft 7 in Weight 193 lb BMI 30.2 BP 140/90 H Blood Pressure Location Rt brachial Position Sitting Pulse 77 Pulse Source Pulse Oximeter Pulse Oximetry (%) 98 Oxygen Delivery Method Room Air Intake Visit Reasons: follow up Intake Note: Patient presents for follow up. Marketing Communications Manager Required: No Allergies No Known Allergies Allergy (Verified 08/22/25 15:36) Medication List - Last Reconciled 08/22/25 by JOSE Brady carbidopa-levodopa 25-100 mg 1.5 tabs PO TID 30 days cholecalciferol (vitamin D3) 50 mcg PO DAILY lidocaine 5% 1 patch topical DAILY 30 days melatonin 3 - 6 mg (1 - 2 x 3 mg) PO DAILY PRN 30 days HPI Comments Details: 50-yr-old female presents for f/u visit for Parkinson's. Pt was last seen on 06/08/2024 by myself. She reports she is being tx'd for right plantar facitis by orthopedic- near [place]. She also notes a small lump on her right knee- her PCP had given her a cream which helped. She has completed [facility], which was very helpful. She has been doing the home PT exercises. Pt's current PD medication regimen: CD-LD 25-100mg 1 tab in am and afternoon, and 2 tabs qhs. Do medication effects last between doses: Yes She had the [facility] genetics appoint- but forgot to get the blood work done. ADL's: Ind, may need to adjust to help lift her lower leg. Swallowing: May cough on her own salvia at times Drooling: Denies Orthostatic lightheadedness: Denies Constipation: Denies Freezing: Denies Stiffness: Denies. She notes that if she drinks alcohol her RUE feels much heavier. She states her alcohol intake was 4 days a week of taking 1/4 pint plus 3 beers, but has decreased to 2 days a week. She hopes to drink less when she has her own car again and has more opportunities to do things outside of caring for her sister, work, and home. She has decreased her marijuana intake, was 3 joints per day, now one at night Tremor: at times in the RUE Falls: None Hallucinations: None Mood: Overall stable, but overall stable. Her PCP had wanted to start her on anti-depressants, but pt can, she would like to avoid starting medications for this unless she has to. She is helping to care for her 52 yr-old sister w/ ESRD on HD. Memory: Good Sleep: Sleeping varies- PCP had prescribed melatonin- she states she tries to fight the effect. Exercise: She has been doing her home PT exercises PFSH Medical History Parkinson's disease Surgical History History of bunionectomy Family History Mother Ovarian cancer Sister Acute kidney failure Other Mental health disorder Social History Housing: Apartment Alcohol intake: current Alcohol intake frequency: does not drink Patient Tobacco Use Status: Current someday Tobacco user Tobacco use type: Cigarette Cigarettes Per Day: 2 Years Smoked: 6 years e-Cigarette/Vaping Use: Never Used Substance Use Type: Marijuana service: No Current occupational status: employed Current occupation: right handed Cognitive needs: No Hearing needs: No Vision needs: Yes Female Reproductive History Menstrual Age of Menarche: 14 Physical Exam Exam Exam: General: A&O x's 3 Expression: Mildly decreased Voice: Soft Tremor: No tremor today Tone: RUE rigidity Dyskinesia: None FFM: RUE mild bradykinesia Foot taps: RLE bradykinesia Gait: Stands ok, decreased Right arm swing, short steps, steady gait. Psych: Pleasant affect. Vital Signs: Last Vital Signs Pulse 77 08/22/25 15:31 BP 140/90 H 08/22/25 15:31 Pulse Ox 98 08/22/25 15:31 Oxygen Delivery Method Room Air 08/22/25 15:31 BMI result Body Mass Index 30.2 Const General: cooperative and no acute distress Resp Effort & Inspection: normal respiratory effort and able to speak in complete sentences Assessment & Plan Assessment & Plan (1) Parkinson's disease without dyskinesia: Comment: Positive DaTscan (04/2023). Young onset. Code(s): G20.A1 - Parkinson's disease without dyskinesia, without mention of fluctuations Category: Medical Qualifiers: Fluctuating manifestations: unspecified whether manifestations fluctuate Qualified Code(s): G20.A1 - Parkinson's disease without dyskinesia, without mention of fluctuations (2) Gait difficulty: Code(s): R26.9 - Unspecified abnormalities of gait and mobility Category: Medical (3) Rigidity: Comment: Especially RUE heaviness, rigidity, and posturing. Code(s): R29.898 - Other symptoms and signs involving the musculoskeletal system Category: Medical (4) Bradykinesia: Code(s): R25.8 - Other abnormal involuntary movements Category: Medical Plan Parkinson's disease medication regimen: * Discontinue CD-LD 25-100mg from 1 tab bid-tid to 1.5 tabs tid. * Start carbidopa levodopa IR 25-100 mg tab, 2 tabs in am, 1 tab in afternoon, and 2 tabs daily at bedtime * In hopes this reduces right-sided stiffness and heaviness * Potential side effects of increasing levodopa therapy include but are not limited to GI upset, orthostatic lightheadedness, dyskinesias, hallucinations, etc. * Continue melatonin 3-6 mg Q evening p.r.n. * Trial diclofenac sodium 3% topically for knee pain. * Treatment contraindications: Would avoid all dopamine agonist due to current alcohol use. For overall Parkinson's disease management: * Continue PD PT home exercises * Engage in regular cognitively stimulating activities, such as reading, word search puzzles, crossword puzzles, or games. * Engage in regular socialization * It is also important to take time for self-care, including time for relaxation and self-reflection. * Monitor mood, if worsens consider trial of SSRI and/or psychotherapy. * Again discussed referral for alcohol support services, pt declines at this time. Discussed strategies to prevent alcohol misuse relapse. Do not drink alcohol and drive. * Follow-up with [facility] genetics consult- to complete genetic testing as ordered- d/t young onset PD. Follow-up in 6 months or sooner as needed. Medications: Changed From carbidopa-levodopa 25-100 mg take 30 minutes before breakfast, lunch, dinner 1.5 tabs PO TID 30 days 135 tabs 6RF To carbidopa-levodopa 25-100 mg 2 tabs in am, 1 tab in afternoon, and 2 tabs qhs orally .; 450 tabs 3RF 90 days From diclofenac sodium 3% 1 appl topical BID 100 grams 0RF To diclofenac sodium 3% 1 appl topical BID PRN 100 grams 6RF knee pain Coding Level of Care Code Est Pt Level 4 (39644) Diagnoses Parkinson's disease without dyskinesia, unspecified whether manifestations fluctuate G20.A1 Fluctuating manifestations: unspecified whether manifestations fluctuate Gait difficulty R26.9 Rigidity R29.898 Bradykinesia R25.8
--- OUTSIDE RECORDS SUMMARY | 2025-08-22 19:43 | XMS_ITS | Clinical Summary ---
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 30 each 06/28/2025 Encounters Date Type Department Care Team Description 06/28/2025 9:15 AM EDT Office Visit [facility]opedic [place] [id number] [address] Surendra Rascon DPM Equinus contracture of right ankle (Primary Dx); Pain in left foot; Pain in right foot; Plantar fasciitis from Last 3 Months Social History Tobacco Use Types Packs/Day Years Used Date Smoking Tobacco: Never Assessed Comments Unknown Sex and Gender Information Value Date Recorded Sex Assigned at Not on file Legal Sex Female 10:53 AM EDT Gender Identity Not on file Sexual Orientation Not on file Plan of Treatment Upcoming Encounters Date Type Department Care Team ([facility] st Contact Info) Description 09/24/2025 1:30 PM EST Office Visit [facility]opedic [facility] [address] [phone] Surendra Rascon DPM [address] [id number] Health Maintenance Due Date Last Done Comments Breast Cancer Screening 1975 Colorectal Cancer Screening: Colonoscopy 1975 DTaP,Tdap,and Td Vaccines (1 - Tdap) 1994 Hepatitis B Vaccines (1 of 3 - 19+ 3-dose series) 1994 Cervical Cancer Screening: P ap Smear 1996 Depression Screening 09/06/2024 HIV Screening 02/22/2025 Hepatitis C Screening 02/22/2025 Social Influencers of Health Screening 02/22/2025 COVID-19 Vaccine (2 - 2024-2 6 season) 2025 09/12/2021 Influenza Vaccine (#1) 2025 10/15/2021 Pneumococcal Vaccine: 50+ Ye ars (1 of 1 - PCV) 2025 Zoster Vaccines (1 of 2) 2025 RSV Immunization Adult Patie nts (1 - 1-dose 75+ series) 2050 HIB Vaccines Aged Out No longer eligi [...] patient's age to complete this topic Insurance [facility] 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
== END 2025-08-22 16:34 | disposition home or self-care (01) ==
PROVIDERS: PCP Internal Medicine; Visit Provider Nurse Practitioner Family
DX: G20.A1 Parkinson's disease without dyskinesia, without mention of fluctuations (principal); R26.9 Unspecified abnormalities of gait and mobility; R29.898 Other symptoms and signs involving the musculoskeletal system; R25.8 Other abnormal involuntary movements
CPT/HCPCS: 99214

== ENCOUNTER → 2025-08-22 14:48 | Outpatient (BNVA) | payer OTHER, SELFPAY | PROVIDERS: PCP Internal Medicine; Visit Provider Nurse Practitioner Family | DX: G20.A1 Parkinson's disease without dyskinesia, without mention of fluctuations (principal); R26.9 Unspecified abnormalities of gait and mobility; R29.898 Other symptoms and signs involving the musculoskeletal system | CPT/HCPCS: 99212 ==